=== PATIENT | female | born 1965 | race Caucasian/White ===

== ENCOUNTER 2023-11-25 13:26 | Inpatient (IN) | payer OTHER ==
[2023-11-25 14:10] LABS: Absolute Basophils 0.2 K/uL (0-0.5); Absolute Eosinophils 0.2 K/uL (0-0.5); Absolute Lymphocytes (CBC) 2.6 K/uL (0.7-4.9); Absolute Monocytes 0.6 K/uL (0.1-1.3); Absolute Neutrophil 8.2 K/uL (1.8-8.0); Basophils % 1.4 % (0-1.3); Eosinophils % 1.9 % (0-4.4); Lymphocytes % 22.2 % (15.3-44.8); MCH 27.1 pg (27.0-35.0); MCHC 32.6 g/dL (32.0-36.0); MPV 9.3 fL (7.6-11.3); Monocytes % 5.1 % (3.3-12.3); Neutrophils % 69.4 % (41.7-73.7); Platelets 372 thou/uL (152-406); RBC Red Blood Cell Count 4.82 M/uL (3.86-4.86); Red Cell Distribution Width 17.2 % (12.1-15.2)
[2023-11-25 14:17] LABS: Specific Gravity 1.018 (1.005-1.030); Sqamous Epithelial <5 /HPF (None Seen); Urine Bacteria <20 /HPF (<20); Urine Bilirubin NEGATIVE (Negative); Urine Blood Negative (Negative); Urine Clarity Extremely Turbid (Clear); Urine Color Yellow (Yellow); Urine Culture Reflex Order NOT NEEDED; Urine Glucose NEGATIVE (Negative); Urine Ketones NEGATIVE (Negative); Urine Microscopic Reflex YN ORDER UMIC; Urine Mucus 2+ /HPF (None Seen); Urine Nitrite NEGATIVE (Negative); Urine Protein 1+ (Negative); Urine RBC <5 /HPF (None Seen); Urine Urobilinogen Normal (Normal); Urine WBC <5 /HPF (<5); Urine pH 5.5 (5.0-7.0)
[2023-11-25 14:29] LABS: ALT/SGPT 20 U/L (13-56); AST/SGOT 40 U/L (15-37); Albumin 2.7 g/dL (3.4-5.0); Albumin/Globulin Ratio 0.4 (1.1-1.8); Alkaline Phosphatase 212 U/L (45-117); Anion Gap 11.6 mEq/L (5.0-15.0); BUN Blood Urea Nitrogen 9 mg/dL (7-18); Bicarbonate 26 mEq/L (21-32); Bilirubin Direct 0.3 mg/dL (0-0.2); Bilirubin Indirect, Calculated 0.7 mg/dL (0.2-0.8); Globulin 6.1 g/dL (2.3-3.5); Glomerular Filtration Rate 46 ml/min (=/>90); Glucose Level 126 mg/dL (74-106); Potassium 3.6 mEq/L (3.5-5.1); Protein, Total 8.8 g/dL (6.4-8.2); Sodium Level 137 mEq/L (136-145)
[2023-11-25 14:31] LABS: Troponin High Sensitivity < 3.0 pg/mL (<58.9)
[2023-11-25 14:40] LABS: PT Prothrombin Time 12.7 SECONDS (9.4-12.5); PTT, Activated Partial Thromb 36.8 SECONDS (24.3-36.9); Protime INR 1.14
--- NOTE | 2023-11-25 14:43 | RAD REPORT ---
EXAM DESCRIPTION: RAD - Chest Single View - 11/25/2023 2:35 pm CLINICAL HISTORY: DYSPNEA Chest pain. COMPARISON: <Comparisons> FINDINGS: Portable technique limits examination quality. Mild to moderate left lung base compatible with pneumonia. Small to moderate left pleural effusion. T he right lung appears grossly clear. The heart is normal in size. No displaced fractures.
--- NOTE | 2023-11-25 15:56 | EDPHYS ---
Physician Documentation [facility] Name: Oxana Talavera Age: 58 yrs Sex: Female : 1965 Arrival Date: 11/25/2023 Time: 13:26 Bed 13 Private MD: ED Physician Eric Herring HPI: 11/24 15:56 This 58 yrs old Female presents to ER via Ambulatory with complaints of Weakness. kb 15:56 Pt is a 58 year old female who presents for weakness, fatigue, intermittent cough and kb shortness of breath. States symptoms started 3 weeks ago, she was diagnosed with pneumonia at and given 10 days of antibiotics. States she felt better while on the antibiotics, but after completing the course the symptoms returned and have been getting progressively worse. Denies fever. . Historical: - Allergies: 13:44 Flagyl; ph - PMHx: 13:44 Bipolar disorder; CVA; Fibromyalgia; Crohn's disease; Hypothyroidism; GERD; ph - Immunization history:: Adult Immunizations unknown. - Infectious Disease History:: Denies. - Social history:: Smoking status: unknown. ROS: 15:56 Constitutional: As per HPI kb Exam: 14:30 Constitutional: This is a well developed, well nourished patient who is awake, alert, kb and in no acute distress. Head/Face: Normocephalic, atraumatic. ENT: Moist Mucous membranes Cardiovascular: Regular rate Respiratory: Respirations even and unlabored. No increased work of breathing. Talking in full sentences Abdomen/GI: Soft, non-tender. No distention Skin: Warm, dry with normal turgor. Normal color. MS/ Extremity: Pulses equal, no cyanosis. Neurovascular intact. Full, normal range of motion. Neuro: Awake and alert, GCS 15, oriented to person, place, time, and situation. Moves all extremities. Normal gait. 14:30 ECG was reviewed by the Attending Physician. Vital Signs: 13:41 BP 131 / 72; Pulse 98; Resp 18; Pulse Ox 95% on R/A; ph 14:21 BP 119 / 69 Sitting; Pulse 97; Resp 16; Pulse Ox 93% on R/A; bc6 14:22 BP 122 / 75 Supine; Pulse 96; Resp 16; Pulse Ox 92% on R/A; bc6 14:23 BP 111 / 81 Standing; Pulse 110; Resp 17; Pulse Ox 94% on R/A; bc6 15:42 Temp 97.9(O); ph 16:40 BP 115 / 81; Pulse 89; Resp 20; Temp 98; Pulse Ox 92% on R/A; kj2 17:43 BP 120 / 72; Pulse 85; Resp 20; Temp 98; Pulse Ox 100% on R/A; kj2 18:45 BP 109 / 81; Pulse 87; Resp 20; Pulse Ox 95% on R/A; cm10 [place] Coma Score: 19:15 Eye Response: spontaneous(4). Motor Response: obeys commands(6). Verbal Response: rg5 oriented(5). Total: 15. MDM: 13:41 Patient medically screened. kb 15:56 Data reviewed: vital signs, nurses notes. kb 15:58 Differential diagnosis: Bronchitis Chronic Obstructive Pulmonary Disease pneumonia, kb pulmonary edema. Antibiotic administration: Rocephin and Zithromax given. Consideration of Admission/Observation Patient was admitted/placed on observation. Escalation of care including admission/observation considered. Management of patient was discussed with the following: Hospitalist: Hospitalist team, pt accepted for admission under Dr Garcia. Historians other than the Patient: Spouse/Significant Other: . Counseling: I had a detailed discussion with the patient and/or guardian regarding the historical points, exam findings, and any diagnostic results supporting the discharge/admit diagnosis, lab results, radiology results, the need for further work-up and treatment in the hospital. 11/24 13:46 Order name: Basic Metabolic Panel; Complete Time: 14:31 kb 11/24 13:46 Order name: CBC with Diff; Complete Time: 14:34 kb 11/24 13:46 Order name: Hepatic Function; Complete Time: 14:31 kb 11/24 13:46 Order name: Magnesium; Complete Time: 14:31 kb 11/24 13:46 Order name: Protime (+inr); Complete Time: 14:46 kb 11/24 13:46 Order name: Ptt, Activated; Complete Time: 14:46 kb 11/24 13:46 Order name: Troponin High Sensitivity; Complete Time: 14:31 kb 11/24 13:46 Order name: Urinalysis w/ reflexes; Complete Time: 14:20 kb 11/24 14:50 Order name: Blood Culture Adult (2) kb 11/24 14:50 Order name: Lactate w/ 2H reflex if indic.; Complete Time: 15:49 kb 11/24 16:49 Order name: Basic Metabolic Panel EDMS 11/24 16:49 Order name: Basic Metabolic Panel EDMS 11/24 16:49 Order name: Basic Metabolic Panel EDMS 11/24 16:49 Order name: Basic Metabolic Panel EDMS 11/24 16:49 Order name: Basic Metabolic Panel EDMS 11/24 16:49 Order name: Basic Metabolic Panel EDMS 11/24 16:49 Order name: CBC with Automated Diff EDMS 11/24 16:49 Order name: CBC with Automated Diff EDMS 11/24 16:49 Order name: CBC with Automated Diff EDMS 11/24 16:49 Order name: CBC with Automated Diff EDMS 11/24 16:49 Order name: CBC with Automated Diff EDMS 11/24 16:49 Order name: CBC with Automated Diff EDMS 11/24 16:49 Order name: Magnesium EDMS 11/24 16:49 Order name: Magnesium EDMS 11/24 16:49 Order name: Magnesium EDMS 11/24 16:49 Order name: Magnesium EDMS 11/24 16:49 Order name: Magnesium EDMS 11/24 16:49 Order name: Magnesium EDMS 11/24 16:49 Order name: Phosphorus EDMS 11/24 16:49 Order name: Phosphorus EDMS 11/24 16:49 Order name: Phosphorus EDMS 11/24 16:49 Order name: Phosphorus EDMS 11/24 16:49 Order name: Phosphorus EDMS 11/24 16:49 Order name: Phosphorus EDMS 11/24 17:49 Order name: Ghost Lactate-NO COLLECT Timer; Complete Time: 17:54 EDMS 11/24 19:24 Order name: Lactate Sepsis 2 HR Follow-up; Complete Time: 19:25 EDMS 11/24 13:46 Order name: Chest Single View XRAY; Complete Time: 14:46 kb 11/24 13:46 Order name: Cardiac monitoring; Complete Time: 17:43 kb 11/24 13:46 Order name: EKG - Nurse/Tech; Complete Time: 14:21 kb 11/24 13:46 Order name: IV Saline Lock; Complete Time: 14:01 kb 11/24 13:46 Order name: Labs collected and sent; Complete Time: 14:01 kb 11/24 13:46 Order name: NPO; Complete Time: 14:01 kb 11/24 13:46 Order name: O2 Per Protocol; Complete Time: 16:11 kb 11/24 13:46 Order name: O2 Sat Monitoring; Complete Time: 16:11 kb 11/24 13:46 Order name: Orthostatics; Complete Time: 14:21 kb 11/24 17:54 Order name: Misc. Order: please draw repeat lactate; Complete Time: 19:04 kb EC:30 Rate is 96 beats/min. Rhythm is regular. QRS [place] is Normal. SD interval is normal at kb 124 msec. QRS interval is normal at 74 msec. QT interval is normal at 457 msec. Administered Medications: 16:50 Drug: Rocephin - Rocephin (cefTRIAXone) IVPB 1 grams IVPB once over 30 mins; (mix in 50 kj2 mL NS) Route: IVPB; Infused Over: 30 mins; Site: right antecubital; 17:35 Follow up: Response: No adverse reaction; IV Status: Completed infusion; IV Intake: [id number] 17:11 Drug: NS 0.9% IV 1000 ml IV at 1000 ml once Route: IV; Rate: 1000 ml; Site: right kj2 antecubital; 18:11 Follow up: IV Status: Completed infusion; IV Intake: 1000ml cm10 17:42 Drug: Zithromax IVPB 500 mg IVPB once over 1 hrs; mix in 250 mL NS Route: IVPB; Infused kj2 Over: 1 hrs; Site: right antecubital; 18:42 Follow up: Response: No adverse reaction; IV Status: Completed infusion cm10 18:47 Follow up: IV Status: Completed infusion; IV Intake: 250ml cm10 Disposition Summary: 11/25/23 15:56 Hospitalization Ordered Notes: Hospitalization Status: Observation kb Provider: Raheem Garcia Condition: Stable kb Problem: new kb Symptoms: are unchanged kb Bed/Room Type: Standard Location: Telemetry/MedSurg (Inpatient)(11/25/23 22:48) rv1 Room Assignment: 401(11/26/23 03:44) vc1 Diagnosis - Pneumonia, unspecified organism - failed outpatient treatment kb - Weakness kb Forms: - Medication Reconciliation Form kb - SBAR form kb - Leadership Thank You Letter kb Addendum: 11/30/2023 16:07 I was immediately available for consultation during this patient's visit. I did not e c2 personally see the patient or discuss the patient with the ISIDORO. . Signatures: Dispatcher [employer] Ana Simpson, HIWOT LINDSAY-Naheed De León, RN RN Marilyn Denny RN RN Brenda Erazo RN RN vc1 Arianne Freitas RN RN kb3 Janiya Euceda 1 Eric Herring MD MD ec2 Catina Alvarez RN RN kj2 Tika Britton RN cm10 Corrections: (The following items were deleted from the chart) 11/24 19:22 15:56 Telemetry/MedSurg (observation) kb kb3 19:22 15:56 kb kb3 22:48 19:22 [facility] ER HOLD kb3 rv1 22:48 19:22 ERHOLD- kb3 rv1 23:00 22:48 415 rv1 11/25 03:44 11/24 23:00 vc1
--- NOTE | 2023-11-25 15:56 | ER ---
Nurse's Notes [facility] Name: Oxana Talavera Age: 58 yrs Sex: Female : 1965 Arrival Date: 11/25/2023 Time: 13:26 Bed 13 Private MD: Diagnosis: Pneumonia, unspecified organism-failed outpatient treatment;Weakness Presentation: 11/24 13:40 Chief complaint: Patient states: Recently dx w/ pneumonia, placed on oral antibiotics, ph felt better for a few days and is now having weakness, fatigue and SOB. Coronavirus screen:. Ebola Screen: No symptoms or risks identified at this time. 13:40 Method Of Arrival: Ambulatory ph 13:41 Initial Sepsis Screen: Does the patient meet any 2 criteria? No. Patient's initial ph sepsis screen is negative. Does the patient have a suspected source of infection? No. Patient's initial sepsis screen is negative. Risk Assessment: Do you want to hurt yourself or someone else? Patient reports no desire to harm self or others. Onset of symptoms was November 25, 2023. 13:41 Acuity: GALINA 3 ph Historical: - Allergies: 13:44 Flagyl; ph - PMHx: 13:44 Bipolar disorder; CVA; Fibromyalgia; Crohn's disease; Hypothyroidism; GERD; ph - Immunization history:: Adult Immunizations unknown. - Infectious Disease History:: Denies. - Social history:: Smoking status: unknown. Screenin:12 [facility] ED Fall Risk Assessment (Adult) History of falling in the last 3 months, kj2 including since admission No falls in past 3 months (0 pts) Confusion or Disorientation No (0 pts) Intoxicated or Sedated No (0 pts) Impaired Gait No (0 pts) Mobility Assist Device Used Altered Elimination No (0 pt) Score/Fall Risk Level 0 - 2 = Low Risk. Abuse screen: Denies threats or abuse. Denies injuries from another. Nutritional screening: No deficits noted. Tuberculosis screening: No symptoms or risk factors identified. Assessment: 17:09 General: Appears in no apparent distress. Behavior is calm, cooperative. Pain: Denies kj2 pain. Neuro: Level of Consciousness is awake, alert, obeys commands, Oriented to person, place, time, situation. Cardiovascular: Patient's skin is warm and dry. Respiratory: Airway is patent Respiratory effort is even, unlabored. GI: No deficits noted. : No deficits noted. 17:44 Reassessment: Patient appears in no apparent distress at this time. Patient and/or kj2 family updated on plan of care and expected duration. Pain level reassessed. Patient is alert, oriented x 3, equal unlabored respirations, skin warm/dry/pink. 19:15 Reassessment: Patient and/or family updated on plan of care and expected duration. Pain rg5 level reassessed. Patient is alert, oriented x 3, equal unlabored respirations, skin warm/dry/pink. Patient states feeling better. Patient states symptoms have improved. Vital Signs: 13:41 BP 131 / 72; Pulse 98; Resp 18; Pulse Ox 95% on R/A; ph 14:21 BP 119 / 69 Sitting; Pulse 97; Resp 16; Pulse Ox 93% on R/A; bc6 14:22 BP 122 / 75 Supine; Pulse 96; Resp 16; Pulse Ox 92% on R/A; bc6 14:23 BP 111 / 81 Standing; Pulse 110; Resp 17; Pulse Ox 94% on R/A; bc6 15:42 Temp 97.9(O); ph 16:40 BP 115 / 81; Pulse 89; Resp 20; Temp 98; Pulse Ox 92% on R/A; kj2 17:43 BP 120 / 72; Pulse 85; Resp 20; Temp 98; Pulse Ox 100% on R/A; kj2 18:45 BP 109 / 81; Pulse 87; Resp 20; Pulse Ox 95% on R/A; cm10 [place] Coma Score: 19:15 Eye Response: spontaneous(4). Motor Response: obeys commands(6). Verbal Response: rg5 oriented(5). Total: 15. ED Course: 13:37 Patient arrived in ED. mg5 13:41 [facility] kb 13:41 Eric Herring MD is Attending Physician. kb 13:43 Triage completed. ph 13:45 Arm band placed on Patient placed in waiting room, Patient notified of wait time. ph 14:01 Basic Metabolic Panel Sent. bc6 14:01 CBC with Diff Sent. bc6 14:01 Hepatic Function Sent. bc6 14:01 Magnesium Sent. bc6 14:01 Protime (+inr) Sent. bc6 14:01 Ptt, Activated Sent. bc6 14:01 Troponin High Sensitivity Sent. bc6 14:01 Urinalysis w/ reflexes Sent. bc6 14:01 Initial lab(s) drawn, by me, sent to lab. Inserted saline lock: 22 gauge in right bc6 antecubital area, using aseptic technique. Blood collected. Flushed with 10 mL NS. 14:37 Chest Single View XRAY In Process Unspecified. EDMS 15:15 First set of blood cultures drawn by me. 6 15:19 Blood Culture Adult (2) Sent. bc6 15:19 Lactate w/ 2H reflex if indic. Sent. bc6 15:30 Second set of blood cultures drawn. bc6 15:55 Raheem Garcia is Hospitalizing Provider. kb 16:24 Catina Alvarez, DINAH is Primary Nurse. kj2 17:00 1636 Provider Cruzito Priest NP at bedside discussing plan of care. 1652 Primary Nurse ane at the bedside administering medication. 1700 CM met with patient and Will at the bedside in the ED exam room. Patient identified by name and . Demographic sheet confirmed and changes sent to appropriate personnel. states she lives in a single story home with her Will. Patient states prior to admission, she performs ADLs independently and uses a walker if she is going to be doing a lot of walking for long distances. Other DME in the home includes a shower stool. No HH, home oxygen or other medical services at this time. No MPOA in place at this time. 's preferred discharge plan is to return home. Will states he will transport her home when she is released. CM team will continue to follow and coordinate care. 17:14 Patient has correct armband on for positive identification. Bed in low position. Call kj2 light in reach. Adult w/ patient. Provided Education on: call light, fall precautions. 19:11 Report given to DINAH Francisco. cm10 19:15 Resting quietly. Awaiting bed assignment. rg5 19:15 Client placed on continuous cardiac and pulse oximetry monitoring. NIBP monitoring rg5 applied. finance effectiveness manager on. Pulse ox on. 19:15 Patient admitted, IV remains in place. No redness/swelling at site. rg5 19:44 No provider procedures requiring assistance completed. Patient admitted, IV remains in cm10 place. Administered Medications: 16:50 Drug: Rocephin - Rocephin (cefTRIAXone) IVPB 1 grams IVPB once over 30 mins; (mix in 50 kj2 mL NS) Route: IVPB; Infused Over: 30 mins; Site: right antecubital; 17:35 Follow up: Response: No adverse reaction; IV Status: Completed infusion; IV Intake: 47alcz1 17:11 Drug: NS 0.9% IV 1000 ml IV at 1000 ml once Route: IV; Rate: 1000 ml; Site: right kj2 antecubital; 18:11 Follow up: IV Status: Completed infusion; IV Intake: 1000ml cm10 17:42 Drug: Zithromax IVPB 500 mg IVPB once over 1 hrs; mix in 250 mL NS Route: IVPB; Infused kj2 Over: 1 hrs; Site: right antecubital; 18:42 Follow up: Response: No adverse reaction; IV Status: Completed infusion cm10 18:47 Follow up: IV Status: Completed infusion; IV Intake: 250ml cm10 Medication: 17:13 VIS not applicable for this client. kj2 Intake: 17:35 IV: 50ml; Total: 50ml. kj2 18:11 IV: 1000ml; Total: 1050ml. cm10 18:47 IV: 250ml; Total: 1300ml. cm10 Outcome: 15:56 Decision to Hospitalize by Provider. kb 19:43 Admitted to ER Hold. Please see [facility] for further documentation. cm10 19:43 Condition: stable 19:43 Instructed on the need for admit, 11/25 04:59 Patient left the ED. rg5 Signatures: Dispatcher [employer] EDAna Weldon, CNC LATHE MACHINE OPERATOR-Mitch CNC LATHE MACHINE OPERATOR-Marilyn Andrade RN RN Carmela Flor 6 Tika Britton RN RN cm10 Rebecca Mejia mg5 Nolan Sanford RN RN rg5 Catina Alvarez RN RN kj2 Tahira Le RN RN ane
[2023-11-25] MEDS ORDERED: CEFTRIAXONE 1000 MG/VIAL ONE (16:31)
[2023-11-25] MEDS ORDERED: NA CHLORIDE 0.9% 50 ML ONE (16:32)
[2023-11-25] MEDS ORDERED: AZITHROMYCIN 500 MG INJ IVPB ONE (16:32)
[2023-11-25] MEDS ORDERED: NA CHLORIDE 0.9% 250 ML ONE (16:32)
[2023-11-25] MEDS ORDERED: NA CHLORIDE 0.9% 1,000 ML ONE ×2 (16:33→18:59)
[2023-11-25] MEDS ORDERED: ACETAMINOPHEN 500 MG TAB PO PRN (16:43)
[2023-11-25] MEDS ORDERED: ACETAMINOPHEN 325 MG TABLET PO PRN (16:43)
[2023-11-25] MEDS ORDERED: HEPARIN 5000 UNIT/ML 1 ML VIAL ONE (18:59)
[2023-11-25] MEDS ORDERED: Levofloxacin 750mg IV 750 MG/150 ML BAG IV ONE (19:00)
[2023-11-25] MEDS: HEPARIN 5000 UNIT/ML 1 ML VIAL SQ SCH (19:06)
[2023-11-25] MEDS: NA CHLORIDE 0.9% 1,000 ML IV SCH (19:06)
[2023-11-25] MEDS: Levofloxacin 750mg IV 750 MG/150 ML BAG IV ONE (19:06)
[2023-11-25 20:06] VITALS: O2SAT 97; BMI 39.2
--- NOTE | 2023-11-25 20:57 | P.HP ---
Certification for Inpatient Patient admitted to: Inpatient With expected LOS: >2 Midnights Patient will require the following post-hospital care: None Practitioner: I am a practitioner with admitting privileges, knowledge of patient current condition, hospital course, and medical plan of care. Services: Services provided to patient in accordance with Admission requirements found in Title 42 Section 412.3 of the Code of Federal Regulations Patient History Date of Service: 11/25/23 Reason for admission: PNA failed outpatient treatment History of Present Illness: Oxana Talavera is a 58 year old female with Pmhx Bipolar disorder, CVA, Fibromyalgia, Crohn's disease, Hypothyroidism, GERD, who presents to the ED with chief complaint of weakness, SOB, and nausea. She reports taking antibiotics for PNA outpatient with her last dose a week ago. She has had increased weakness and her brought her to the ED. She reports no fever and no urinary symptoms. Initial vitals BP 131 / 72; Pulse 98; Resp 18; Pulse Ox 95% on R/A Laboratory evaluation WBC 11.8, lactic acidosis 2.2, BUN/creatinine 9/1.33, GFR 46, serum glucose 126 Chest xray reports "Mild to moderate left lung base compatible with pneumonia. Small to moderate left pleural effusion. The right lung appears grossly clear. The heart is normal in size. No displaced fractures." Oxana will be admitted to hospitalist service for further evaluation and treatment. Allergies metronidazole [From Flagyl] Allergy (Verified 11/25/23 18:55) Anaphylaxis Home Medications: Aspirin [Aspirin EC 325 MG] 11/25/23 Atorvastatin Calcium [Lipitor] 11/25/23 Cyanocobalamin (Vitamin B-12) [Vitamin B-12] 11/25/23 Duloxetine [Cymbalta *] 60 mg FT 11/25/23 Gabapentin 500 mg PO 11/25/23 Krill/Burney-3/Dha/Epa/Lipids [Burney-3 Krill Oil 500 mg Sfgl] 11/25/23 Levothyroxine [Synthroid*] 11/25/23 Omeprazole [Prilosec] 11/25/23 Zinc Amino Acid Chelate [Zinc] 11/25/23 clonazePAM [Clonazepam] PRN 11/25/23 Cefuroxime [Ceftin] 500 mg PO BID 5 Days #20 tab 11/26/23 Guaifenesin [Mucinex] 600 mg PO Q12H PRN 7 Days #14 tab 11/26/23 Levofloxacin [Levaquin] 750 mg PO DAILY 5 Days #5 tab 11/26/23 - Past Medical/Surgical History Has patient received pneumonia vaccine in the past: No Review of Systems General: Weakness Respiratory: Shortness of Breath Physical Examination - Physical Exam General: Alert, In no apparent distress, Oriented x3 HEENT: Atraumatic, Normocephalic Neck: Supple, 2+ carotid pulse no bruit Respiratory: Clear to auscultation bilaterally, Normal air movement Cardiovascular: Normal pulses, Regular rate/rhythm, Normal S1 S2 Capillary refill: <2 Seconds Gastrointestinal: Normal bowel sounds, Soft and benign, No tenderness, Distended (obese) Musculoskeletal: No clubbing Integumentary: No rashes Neurological: Normal speech, Normal tone - Studies Laboratory Data (last 24 hrs) 11/25/23 11/25/23 11/25/23 14:00 14:00 14:00 WBC 11.80 H Hgb 13.0 Hct 40.0 Plt Count 372 PT 12.7 H INR 1.14 APTT 36.8 Sodium 137 Potassium 3.6 BUN 9 Creatinine 1.33 H Glucose 126 H Magnesium 2.0 Total Bilirubin 1.0 AST 40 H ALT 20 Alkaline Phosphatase 212 H Assessment and Plan - Plan Assessment and Plan PNA failed outpatient treatment Weakness -WBC 11.8, Lactic acid 2.2 -Chest xray reports "Mild to moderate left lung base compatible with pneumonia. Small to moderate left pleural effusion. The right lung appears grossly clear. The heart is normal in size. No displaced fractures." -Zithromycin given in the ED -Levaquin on the floor -IVF CAIO -BUN/creatinine 9/1.33, GFR 46 - IVF Hyperglycemia likely 2/2 steroid use -serum glucose 126 -no reported diabetes in her history Bipolar disorder CVA Fibromyalgia Crohn's disease Hypothyroidism GERD -Continue home medications DVT PPx heparin Full code LOS 2 to 3 days Discharge Plan: Home Plan to discharge in: 48 Hours - Advance Directives Does patient have a Living Will: No Does patient have a Durable POA for Healthcare: No
[2023-11-26] MEDS ORDERED: HEPARIN 5000 UNIT/ML 1 ML VIAL ONE (03:38)
[2023-11-26] MEDS ORDERED: NA CHLORIDE 0.9% 1,000 ML ONE (04:25)
[2023-11-26 05:53] LABS: Absolute Basophils 0.1 K/uL (0-0.5); Absolute Eosinophils 0.3 K/uL (0-0.5); Absolute Lymphocytes (CBC) 1.5 K/uL (0.7-4.9); Absolute Monocytes 0.5 K/uL (0.1-1.3); Absolute Neutrophil 4.4 K/uL (1.8-8.0); Eosinophils % 4.5 % (0-4.4); Hematocrit 34.6 % (36.0-45.0); Lymphocytes % 22.5 % (15.3-44.8); MCH 26.8 pg (27.0-35.0); MCV 83.8 fL (80-100); MPV 9.9 fL (7.6-11.3); Monocytes % 7.7 % (3.3-12.3); Neutrophils % 64.3 % (41.7-73.7); Platelets 266 thou/uL (152-406); RBC Red Blood Cell Count 4.12 M/uL (3.86-4.86); Red Cell Distribution Width 16.6 % (12.1-15.2)
[2023-11-26 06:04] LABS: Anion Gap 7.6 mEq/L (5.0-15.0); Magnesium 1.7 mg/dL (1.6-2.4); Potassium 3.6 mEq/L (3.5-5.1)
[2023-11-26 08:29] VITALS: BP 106/57; TEMP 96.3
--- NOTE | 2023-11-26 08:34 | P.DS ---
Admission Date: 11/25/23 Discharge Date: 11/26/23 Disposition: ROUTINE DISCHARGE Discharge Condition: GOOD Reason for Admission: PNA failed outpatient treatment Brief History of Present Illness: Diagnosis PNA failed outpatient treatment Lactic acidosis Weakness CAIO Hyperglycemia likely 2/2 steroid use Bipolar disorder CVA Fibromyalgia Crohn's disease Hypothyroidism GERD HPI 11/25/2023 Oxana Talavera is a 58 year old female with Pmhx Bipolar disorder, CVA, Fibromyalgia, Crohn's disease, Hypothyroidism, GERD, who presents to the ED with chief complaint of weakness, SOB, and nausea. She reports taking antibiotics for PNA outpatient with her last dose a week ago. She has had increased weakness and her brought her to the ED. She reports no fever and no urinary symptoms. Initial vitals BP 131 / 72; Pulse 98; Resp 18; Pulse Ox 95% on R/A Laboratory evaluation WBC 11.8, lactic acidosis 2.2, BUN/creatinine 9/1.33, GFR 46, serum glucose 126 Chest xray reports "Mild to moderate left lung base compatible with pneumonia. Small to moderate left pleural effusion. The right lung appears grossly clear. The heart is normal in size. No displaced fractures." Oxana will be admitted to hospitalist service for further evaluation and treatment. Hospital Course: Oxana Talavera is a pleasant 58 year old female with a past medical history significant for Bipolar disorder, CVA, Fibromyalgia, Crohn's disease, Hypothyroidism, GERD who was admitted to the [facility] on 11/24/21 for Weakness d/t PNA failed outpatient antibiotic therapy. She reports taking antibiotics for PNA outpatient with her last dose a week ago. She has had increased weakness and her brought her to the ED. She reports no fever and no urinary symptoms. She has tolerated IV levaquin, remained afebrile, and is on RA. She reports snoring and possible sleep apnea, intermittent oxygen was used but ambulating oxygen saturation was tested showing 93-95%. Weakness improved and she was strong while ambulating. On 11/26/23, Oxana was seen on morning rounds and deemed medically stable for discharge. Oxana was discharged with instructions to schedule follow-up appointments with PCP. Oxana was provided prescriptions for Levaquin, ceftin, and mucinex. Physical Exam General: Alert and Oriented x3, NAD HEENT: Atraumatic, Normocephalic Neck: Supple, 2+ carotid pulse no bruit Respiratory: Clear to auscultation bilaterally, Normal air movement, on RA Cardiovascular: Normal pulses, RRR, Normal S1 S2 Capillary refill: <2 Seconds Gastrointestinal: Normal bowel sounds, Soft on palpation, No tenderness, Distended (obese) Musculoskeletal: No clubbing Integumentary: No rashes Neurological: Normal speech, Normal tone Vital Signs/Physical Exam: Temp Pulse Resp BP Pulse Ox 96.3 F L 86 16 106/57 L 94 11/26/23 08:00 11/26/23 08:00 11/26/23 08:00 11/26/23 08:00 11/26/23 08:00 Laboratory Data at Discharge: WBC 6.80 thou/uL (4.3-10.9) 11/26/23 05:41 Hgb 11.0 g/dL (12.0-15.0) L D 11/26/23 05:41 Hct 34.6 % (36.0-45.0) L 11/26/23 05:41 Plt Count 266 thou/uL (152-406) D 11/26/23 05:41 PT 12.7 SECONDS (9.4-12.5) H 11/25/23 14:00 INR 1.14 11/25/23 14:00 APTT 36.8 SECONDS (24.3-36.9) 11/25/23 14:00 Sodium 140 mEq/L (136-145) 11/26/23 05:41 Potassium 3.6 mEq/L (3.5-5.1) 11/26/23 05:41 BUN 8 mg/dL (7-18) 11/26/23 05:41 Creatinine 0.87 mg/dL (0.55-1.02) 11/26/23 05:41 Glucose 98 mg/dL (74-106) 11/26/23 05:41 Phosphorus 3.0 mg/dL (2.5-4.9) 11/26/23 05:41 Magnesium 1.7 mg/dL (1.6-2.4) 11/26/23 05:41 Total Bilirubin 1.0 mg/dL (0.2-1.0) 11/25/23 14:00 AST 40 U/L (15-37) H 11/25/23 14:00 ALT 20 U/L (13-56) 11/25/23 14:00 Alkaline Phosphatase 212 U/L (45-117) H 11/25/23 14:00 Home Medications: Aspirin [Aspirin EC 325 MG] 11/25/23 Atorvastatin Calcium [Lipitor] 11/25/23 Cyanocobalamin (Vitamin B-12) [Vitamin B-12] 11/25/23 Duloxetine [Cymbalta *] 60 mg FT 11/25/23 Gabapentin 500 mg PO 11/25/23 Krill/Naples-3/Dha/Epa/Lipids [Naples-3 Krill Oil 500 mg Sfgl] 11/25/23 Levothyroxine [Synthroid*] 11/25/23 Omeprazole [Prilosec] 11/25/23 Zinc Amino Acid Chelate [Zinc] 11/25/23 clonazePAM [Clonazepam] PRN 11/25/23 Cefuroxime [Ceftin] 500 mg PO BID 5 Days #20 tab 11/26/23 Guaifenesin [Mucinex] 600 mg PO Q12H PRN 7 Days #14 tab 11/26/23 Levofloxacin [Levaquin] 750 mg PO DAILY 5 Days #5 tab 11/26/23 New Medications: Cefuroxime [Ceftin] 500 mg PO BID 5 Days #20 tab Levofloxacin [Levaquin] 750 mg PO DAILY 5 Days #5 tab Guaifenesin [Mucinex] 600 mg PO Q12H PRN 7 Days #14 tab PRN Reason: Cough Physician Discharge Instructions: Darius Talavera was treated for pneumonia after failed outpatient antibiotic treatment. Levaquin was given IV and tolerated well. Continue antibiotic course with dual coverage of Levaquin and Ceftin. Please follow-up with your primary care provider in 1 week. 1. Please call and schedule a follow-up appointment with your PCP in one week - Please follow-up with your PCP for medication refills/adjustments 3. Continue regluar diet 4. No activity restrictions 5. Return to the ED if symptoms worsen New medications Levaquin 750 mg p.o. daily x 5 days Ceftin 500 mg p.o. twice daily x 5 days Mucinex 600 mg p.o. every 12 hours time as needed x 7 days Diet: Regular Activity: Ad thania Followup: NONE,NONE [Primary Care Provider] -
[2023-11-26] MEDS ORDERED: Levofloxacin 750mg IV 750 MG/150 ML BAG IV SCH (19:00)
--- NOTE | 2023-11-27 13:35 | EKG ---
Test Date: 2023-11-25 Test Time: 14:10:27 Sales Producer: DIRK MEASUREMENT RESULTS: Intervals: Rate: 96 PA: 124 QRSD: 74 QT: 362 QTc: 457 [place]: P: 22 PA: 124 QRS: 29 T: -70 INTERPRETIVE STATEMENTS: Normal sinus rhythm Low voltage QRS Nonspecific ST and T wave abnormality Abnormal ECG No previous ECG available for comparison Electronically Signed On 11-27-23 13:29:13 CDT by Jaxson Hoover
== END 2023-11-26 10:39 | disposition home or self-care (01) | DRG 194 ==
LOC: ER 13:26 → ERHOLD 18:24 → 4TH 11-26 04:42
PROVIDERS: ADMIT Internal Medicine; ATTEND Internal Medicine
DX: J18.9 Pneumonia, unspecified organism (principal); E87.20 Acidosis, unspecified; N17.9 Acute kidney failure, unspecified; K50.90 Crohn's disease, unspecified, without complications; M79.7 Fibromyalgia; E03.9 Hypothyroidism, unspecified; K21.9 Gastro-esophageal reflux disease without esophagitis; E66.9 Obesity, unspecified; F31.9 Bipolar disorder, unspecified; T38.0X5A Adverse effect of glucocorticoids and synthetic analogues, initial encounter; R73.9 Hyperglycemia, unspecified; Z88.8 Allergy status to other drugs, medicaments and biological substances; Z79.82 Long term (current) use of aspirin; Z68.39 Body mass index [BMI] 39.0-39.9, adult; Z86.73 Personal history of transient ischemic attack (TIA), and cerebral infarction without residual deficits; Z79.890 Hormone replacement therapy; Z79.899 Other long term (current) drug therapy
CPT/HCPCS: 36415; 71045; 80048; 80076; 81001; 83605; 83735; 84100; 84484; 85025; 85610; 85730; 87040; 93005; 96365; 96367; 99285; J0696; J1644; J7030; J7050

== ENCOUNTER 2023-11-29 09:01 | Inpatient (IN) | payer OTHER ==
--- OUTSIDE RECORDS SUMMARY | 2023-11-29 09:04 | XMS REPORT | Continuity of Care Document ---
Author Name Unknown Address [address] [place] [address] [facility] thconnect Address [address] [place] [address] Care Team Providers Care Financial Compliance Manager Name Role Phone JUNO ROSE Primary Care Physician UnavailJAQUAN Howard Attending Clinician UnavailJaquan Mancini Attending Clinician [phone] Unknown, Attending Attending Clinician Unavailab [facility] Attending Clinician Un available Homar Mccarthy Attending Clinician [phone] HOMAR VARGHESE Attending Clinician Unavailable Provider[facility] Attending Clinician Unavailable UNKNOWN, ATTENDING Attending Clinician Unavailab chanel WHITNEY_GCBZW_Kadiyala_S Attending Clinician Paul An Attending Clinician [phone] Doctor Unassigned, [place] Attending Clinician U navailable DEVONTE_GCBZW_Kadiyala_S Admitting Clinician Unavaila ble Payers Payer Name Policy Type Policy Number Effective Date Expirati on Date Source [employer] MEDICARE ADV [id number] 00:00:00 Problems Condition Name Condition Details Condition Category Status Onset Date Resolution Date Last Treatment Date Treating Clinician Comments Source Vaginal odor Vaginal odor Disease Active 2017-04 00:00: 00 [facility] Vaginal itching Vaginal itching Disease Active 2017-04 00:00: 00 [facility] Allergies, Adverse Reactions, Alerts Allergy Name Allergy Type Status Severity Reaction(s) Onset Date Inactive Date Treating Clinician Comments Source Metronid azole Hcl Propensi ty to adverse reaction s Active Unknown - See comments 10-22 00:00: 00 [facility] METRONID AZOLE HCL DRUG INGREDI Active Unknown-Cmnt 10-22 00:00: 00 [facility] Social History Social Habit Start Date Stop Date Quantity Comments Source Sexual orientation U [facility] Exposure to SARS-CoV-2 (event) Not sure [facility] History of Social function 2018-12-26 00:00:00 2018-12-26 00:00:00 [facility] Tobacco use and exposure 2018-03-18 00:00:00 2018-03-18 00:00:00 Smokeless tobacco non-user [facility] Alcohol Comment 2018-03-18 00:00:00 2018-03-18 00:00:00 social [facility] History of tobacco use 2010-06-01 00:00:00 Cigarette Smoker [facility] Sex assigned at 1965 00:00:00 1965 00:00:00 [facility] Smoking Status Start Date Stop Date Source Ex-smoker 2018-03-18 00:00:00 2018-03-18 00:00:00 [facility] Medications Ordered Medication Name Filled Medication Name Start Date Stop Date Current Medication? Ordering Clinician Indication Dosage Frequency Signature (SIG) Comments Components Source potassium chloride (KCL-20 ORAL) 10-24 18:25: 25 Yes 2mg Take by mouth. [facility] aspirin 325 mg tablet 10-24 18:25: 25 Yes 325mg Take 1 tablet by mouth in the morning. [facility] Cholecalcif yusef, Vitamin D3, (VITAMIN D3) 5,000 unit tablet 10-24 18:25: 25 Yes 5000U Take 1 tablet by mouth in the morning. [facility] mesalamine (PENTASA) 500 mg CR capsule 10-24 18:25: 25 Yes 500mg Take 1 capsule by mouth 4 (four) times daily. [facility] DULoxetine (CYMBALTA) 60 mg capsule 10-24 18:25: 25 Yes 60mg Take 1 capsule by mouth in the morning. [facility] omega-3s-dh a-epa-fish oil (OMEGA 3) 350-400 mg Cap 10-24 18:25: 25 Yes 1{capsu le} Take 1 capsule by mouth daily. [facility] levothyroxi ne (SYNTHROID) 25 mcg tablet 10-24 18:25: 25 Yes 25ug Take 1 tablet by mouth every morning. [facility] omeprazole (PRILOSEC) 40 mg capsule 10-24 18:25: 25 Yes 40mg Take 1 capsule by mouth in the morning. [facility] methylPREDN ISolone (MEDROL, XIOMARA,) 4 mg tablets 10-24 00:00: 00 Yes [id number] Take by mouth SEE-INSTRU CTIONS. follow package directions [facility] azithromyci n 250 mg tablet 10-24 00:00: 00 Yes [id number] 2 tabs today; 1 tab daily for 4 days [facility] benzonatate 200 mg capsule 10-24 00:00: 00 11-04 04:59 :00 Yes [id number] 200mg Take 1 capsule by mouth 3 (three) times daily as needed for Cough for up to 10 days. [facility] albuterol 90 mcg/actuati on inhaler 10-24 00:00: 00 11-04 04:59 :00 Yes [id number] 2{puff} Inhale 2 Puffs every 6 (six) hours as needed for Wheezing or Shortness of Breath for up to 10 days. [facility] amoxicillin -clavulanat e (AUGMENTIN) 875-125 mg per tablet 10-24 00:00: 00 11-01 04:59 :00 Yes [id number] 1{tbl} Take 1 tablet by mouth in the morning and 1 tablet in the evening. Do all this for 7 days. [facility] iohexol (OMNIPAQUE 350 BULK-100 mL) injection 100 mL 2019-04 00:30: 00 02-24 00:00 :00 No 100mL 100 mL, Intravenou s, ONCE, 1 dose, Thu02/24/20 at 1830, Routine [facility] meclizine (TRAVEL-EAS E (MECLIZINE) ) tablet 25 mg 2019-04 00:00: 00 02-23 23:03 :00 No 25mg 25 mg, Oral, ONCE, 1 dose, Thu02/24/20 at 1800, JERARDO [facility] NaCl 0.9% (NS) bolus infusion 1,000 mL 2019-04 23:45: 00 02-24 01:50 :00 No 1000mL at 999 mL/hr, 1,000 mL, IV Infusion, ONCE, 1 dose, Thu02/24/20 at 1745, STAT [facility] benzonatate 100 mg capsule 708 00:00: 00 10-24 00:00 :00 No [id number] 100mg Take 1 capsule by mouth 3 (three) times daily as needed for Cough. [facility] erythromyci n 5 mg/gram (0.5 %) ophthalmic ointment 524 00:00: 00 Yes [id number] 650242 .5[in_u s] Place 0.5 Inches in both eyes 2 (two) times daily. Continue until you follow up with eye doctor. [facility] methylPREDN ISolone (MEDROL, XIOMARA,) 4 mg tablets 4-16 00:00: 00 10-24 00:00 :00 No [id number] Take by mouth SEE-INSTRU CTIONS. follow package directions [facility] ATORVASTATI N CALCIUM (LIPITOR ORAL) 2017-04 15:27: 38 Yes 40mg Take 40 mg by mouth daily. [facility] aspirin 325 mg tablet 2017-04 15:27: 38 Yes 325mg Take 325 mg by mouth daily. [facility] CLONAZEPAM ORAL 2017-04 15:27: 38 Yes 2mg Take 2 mg by mouth 2 (two) times daily as needed (anxiety). [facility] Cholecalcif yusef, Vitamin D3, (VITAMIN D3) 5,000 unit tablet 2017-04 15:27: 38 Yes 5000U Take 5,000 Units by mouth daily. [facility] mesalamine (PENTASA) 500 mg CR capsule 2017-04 15:27: 38 Yes 500mg Take 500 mg by mouth 4 (four) times daily. [facility] DULoxetine (CYMBALTA) 60 mg capsule 2017-04 15:27: 38 Yes 60mg Take 60 mg by mouth daily. [facility] omega-3s-dh a-epa-fish oil (OMEGA 3) 350-400 mg Cap 2017-04 15:27: 38 Yes 1{capsu le} Take 1 capsule by mouth daily. [facility] levothyroxi ne (SYNTHROID) 25 mcg tablet 2017-04 15:27: 38 Yes 25ug Take 25 mcg by mouth every morning. [facility] omeprazole (PRILOSEC) 40 mg capsule 2017-04 15:27: 38 Yes 40mg Take 40 mg by mouth daily. [facility] acetaminoph en with codeine (TYLENOL-CO DEINE #3 ORAL) 2017-04 15:27: 38 Yes Take by mouth. [facility] potassium chloride (KCL-20 ORAL) 2017-04 15:27: 38 Yes Take by mouth. [facility] potassium chloride (KCL-20 ORAL) 2017-04 09:27: 38 Yes 40mg Take by mouth. [facility] CLONAZEPAM ORAL 2017-04 09:27: 38 Yes 2mg Take 2 mg by mouth 2 (two) times daily as needed (anxiety). [facility] omega-3s-dh a-epa-fish oil (OMEGA 3) 350-400 mg Cap 2017-04 09:27: 38 Yes 1{capsu le} Take 1 capsule by mouth daily. [facility] clotrimazol e-betametha sone (LOTRISONE) cream 2017-04 00:00: 00 Yes Apply to area(s) 2 (two) times daily. [facility] clotrimazol e (GYNE-LOTRI MIN 7) 1 % vaginal cream 2017-04 2- 00:00: 00 Yes 1{appli cator} Insert 1 Applicator into vagina at bedtime. [facility] traMADOL (ULTRAM) 50 mg tablet 2015-04 0 00:00: 00 Yes 50mg Take 1 tablet by mouth every 6 (six) hours as needed for Pain (scale 7-10). [facility] Vital Signs Vital Name Observation Time Observation Value Comments S rand Systolic blood pressure 2023-10-25 23:20:00 114 mm[Hg] [facility] acute hospital Diastolic blood pressure 2023-10-25 23:20:00 74 mm[Hg] [facility] acute hospital Heart rate 2023-10-25 23:20:00 110 /min [facility] Body temperature 2023-10-25 23:20:00 36.22 Zee [facility] Body weight 2023-10-25 23:20:00 120.657 kg [facility] BMI 2023-10-25 23:20:00 39.28 kg/m2 [facility] Oxygen saturation in Arterial blood by Pulse oximetry 2023-10-25 23:20:00 95 /min [facility] Systolic blood pressure 2023-07-31 22:00:00 116 mm[Hg] [facility] acute hospital Diastolic blood pressure 2023-07-31 22:00:00 84 mm[Hg] [facility] acute hospital Heart rate 2023-07-31 22:00:00 87 /min [facility] Body temperature 2023-07-31 22:00:00 36.28 Zee [facility] Respiratory rate 2023-07-31 22:00:00 18 /min [facility] Body height 2023-07-31 22:00:00 175.3 cm [facility] Body weight 2023-07-31 22:00:00 121.791 kg [facility] BMI 2023-07-31 22:00:00 39.65 kg/m2 [facility] Oxygen saturation in Arterial blood by Pulse oximetry 2023-07-31 22:00:00 95 /min [facility] Systolic blood pressure 2023-07-31 21:25:00 116 mm[Hg] [facility] acute hospital Diastolic blood pressure 2023-07-31 21:25:00 84 mm[Hg] [facility] acute hospital Heart rate 2023-07-31 21:25:00 87 [facility] Body temperature 2023-07-31 21:25:00 36.28 Zee [facility] Respiratory rate 2023-07-31 21:25:00 18 /min [facility] Body height 2023-07-31 21:25:00 175.3 cm [facility] Body weight 2023-07-31 21:25:00 121.927 kg [facility] BMI 2023-07-31 21:25:00 39.69 kg/m2 [facility] Oxygen saturation in Arterial blood by Pulse oximetry 2023-07-31 21:25:00 95 /min [facility] Systolic blood pressure 2020-02-25 01:32:00 113 mm[Hg] [facility] acute hospital Diastolic blood pressure 2020-02-25 01:32:00 82 mm[Hg] [facility] acute hospital Heart rate 2020-02-25 01:32:00 84 /min [facility] Respiratory rate 2020-02-25 01:32:00 21 /min [facility] Oxygen saturation in Arterial blood by Pulse oximetry 2020-02-25 01:32:00 97 /min [facility] Body temperature 2020-02-24 22:18:23 37.06 Zee [facility] Body weight 2020-02-24 22:18:23 133.811 kg [facility] BMI 2020-02-24 22:18:23 43.56 kg/m2 [facility] Procedures Procedure Date / Time Performed Performing Clinician Source POCT SARS-COV-2 ANTIGEN (BINAX NOW) 2023-10-25 23:54:00 Jaquan Back [facility] XR CHEST 2 VW 2023-10-25 23:53:00 [facility] 2020-02-25 00:14:59 [facility] 2020-02-25 00:14:59 Paul Marcum [facility] URINALYSIS 2020-02-25 00:01:00 Pual Marcum [facility] XR CHEST 2 VW 2020-02-24 23:21:34 Paul Marcum [facility] CT HEAD WO CONTRAST 2020-02-24 23:16:00 Paul Marcum [facility] LIPASE 2020-02-24 23:01:00 Paul Marcum [facility] TROPONIN I 2020-02-24 23:01:00 Paul Marcum [facility] HEPATIC FUNCTION PANEL ([id number]) (ALB,T.PRO,BILI T,BU/BC,ALT,AST,ALK PHOS) 2020-02-24 23:01:00 Paul Marcum [facility] BASIC METABOLIC PANEL (NA, K, CL, CO2, GLUCOSE, BUN, CREATININE, CA) 2020-02-24 23:01:00 Paul Marcum [facility] CBC WITH DIFF 2020-02-24 23:01:00 Paul Marcum [facility] PROTHROMBIN TIME / INR 2020-02-24 23:01:00 Ly Marcum [facility] ACTIVATED PARTIAL THRMPLAS YOLETTE 2020-02-24 23:01:00 Paul Marcum [facility] NOTICE OF PRIVACY PRACTICES 2020-02-24 22:07:24 Doctor Unassigned, [place] [facility] CONSENT/REFUSAL FOR DIAGNOSIS AND TREATMENT 2020-02-24 22:07:10 Doctor Unassigned, [place] [facility] Encounters Start Date/Time End Date/Time Encounter Type Admission Type Attending [facility] Care Facility Care Department Encounter ID Source 2021-02-02 07:00:13 Emergency [facility] [id number] [facility] 2023-10-25 18:41:11 2023-10-25 23:59:00 Outpatient R COLE, JAQUAN [facility] [id number] [facility] 2023-10-25 18:41:11 2023-10-25 23:59:00 Hospital Encounter Jaquan Back [facility] [id number] [id number] [id number] [id number] [facility] 2023-10-25 18:20:00 2023-10-25 19:12:35 Urgent Care Jaquan Back Unknown, Attending [facility] 1..840.114 350.1.13.10 4.2.7.2.686 [id number] [facility] 2023-07-31 17:00:00 2023-07-31 17:07:46 Nurse Visit Nurse, [facility] Unknown, [facility] [id number] 350.1.13.10 [id number] [id number] [facility] 2023-07-31 17:00:00 2023-07-31 17:00:00 Outpatient R HOMAR VARGHESE [facility] [id number] [facility] 2023-07-31 16:00:00 2023-07-31 16:20:00 Urgent Care Provider, [facility] Unknown, Attending [facility] 1..840.114 350.1.13.10 4.2.7.2.686 [id number] [facility] 2023-07-31 16:00:00 2023-07-31 16:00:00 Outpatient R UNKNOWN, ATTENDING [facility] [id number] [facility] 2023-02-01 00:00:00 2023-02-01 00:00:00 Outpatient GC_GCBZW_Ka dioscara_S [facility] [id number] [facility] 2020-02-24 16:28:00 2020-02-24 19:52:00 Emergency Yordan Paul [facility] [id number] 350.1.13.10 [id number] [id number] [facility] 2020-02-24 00:00:00 2020-02-24 00:00:00 Orders Only Doctor Unassigned, [place] [facility] [id number] 350.1.13.10 [id number] [id number] [facility] Results Test Description Test Time Test Comments Results Resul t Comments Source XR CHEST 2 VW 2023-10-26 00:22:43 ORDERING PHYSICIAN: JAQUAN BACK. JAQUAN BACK CLINICAL HISTORY: Dyspnea. . TECHNIQUE: 2 views chest TECHNICAL QUALITY: Adequate COMPARISON: 02/24/2020 FINDINGS: Medial left lung base opacities concerning for pneumonia. Noeffusion or pneumothorax. Normal heart size[facility] [id number] 00:59:30No evidence for hemodynamically significant stenosis in the neck. No evidence for central intracranial arterial occlusion or hemodynamicallysignificant stenosis. RL: 4600 INATION: CT ANGIOGRAPHY OF THE HEAD AND NECK WITH CONTRAST. ORDERING PHYSICIAN: PAUL MARCUM CLINICAL INDICATION: ?Neuro deficit, TIA TECHNIQUE: Axial CT of the head and neck obtained after the administrationof intravenous contrast, according to angiographyprotocol. Sagittal andcoronal maximum intensity projection reformatted images provided.Evaluation for luminal stenosis measured utilizing NASCET criteria. CT scanwas performed according to ALARA (As Low as Reasonably Achievable). COMPARISON: Noncontrast CT head from earlier the same day FINDINGS: Visualized upper lungs are clear. Airway is patent. Paranasal sinuses andmastoid air cells are clear.Posterior nasopharynx and oropharynx areunremarkable. Submandibular and parotid glands are symmetrical. Orbits areunremarkable as visualized. No cervical lymphadenopathy. Thyroid isunremarkable. No acute bony abnormality. Conventional 3 vessel arch anatomy is identified. The bilateral commoncarotidarteries are patent and normal caliber. The carotid bulbs arewidely patent. External carotid arteries are patent. The bilateral cervicalinternal carotid arteries are patent without evidence for hemodynamicallysignificant stenosis. The bilateral cervical vertebral arteries are nearlycodominant and are patent and normal caliber along their course. The petrous and cavernous internal carotid arteriesare patent and normalcaliber. The central aspects of the middle cerebral, anterior cerebral andposterior cerebral arteries are patent without evidence for hemodynamicallysignificant stenosis. Basilarartery is patent normal caliber. Theintradural vertebral arteries are patent and normal caliber. originof the right posterior cerebral artery. There is a prominent venousstructure at the right middle cranial fossa, which could related to adevelopmental venous anomaly. No evidence for large int racranial aneurysm.Major dural venous sinuses are patent. [facility], Radiant Results Inft User - 02/24/2020 7:00 PM CSTEXAMINATION: CT ANGIOGRAPHY OF THE HEAD AND NECK WITH CONTRAST.ORDERING PHYSICIAN: PAUL LIZAMALINICAL INDICATION: Neuro deficit, TIATECHNIQUE: Axial CT of the head and neck obtained after the administrationof intravenous contrast, according to angiography protocol. Sagittal andcoronal maximum intensity projection reformatted images provided.Evaluation for luminal stenosis measured utilizing NASCET criteria. CT scanwas performed according to ALARA (As Low as Reasonably Achievable ).COMPARISON: Noncontrast CT head from earlier the same dayFINDINGS:Visualized upper lungs are clear. Airway is patent. Paranasal sinuses andmastoid air cells are clear. Posterior nasopharynx and oropharynx areunremarkable. Submandibular and parotid glands are symmetrical. Orbits areunremarkable asvisualized. No cervical lymphadenopathy. Thyroid isunremarkable. No acute bony abnormality.Conventional 3 vessel arch anatomy is identified. The bilateral commoncarotid arteries are patent and normalcaliber. The carotid bulbs arewidely patent. External carotid arteries are patent. The bilateral cervicalinternal carotid arteries are patent without evidence for hemodynamicallysignificant stenosis.The bilateral cervical vertebral arteries are nearlycodominant and are patent and normal caliber along their course.The petrous and cavernous internal carotid arteries are patent and normalcaliber. The central aspects of the middle cerebral, anterior cerebral andposterior cerebral arteries are patent without evidence for hemodynamicallysignificant stenosis. Basilar artery is patent normal caliber. Theintradural vertebral arteries are patent and normal caliber. originof the right posteriorcerebral artery. There is a prominent venousstructure at the right middle cranial fossa, which could related to adevelopmental venous anomaly. No evidence for large intracranial aneurysm.Major dural venous sinuses are patent.IMPRESSIONNo evidence for hemodynamically significant stenosis in the neck.No evidence for central intracranial arterial occlusion or hemodynamicallysignificant stenosis.RL: 4600 [facility] [id number] 00:59:30No evidence for hemodynamically significant stenosis in the neck. No evidence for central intracranial arterial occlusion or hemodynamicallysignificant stenosis. RL: 4600 INATION: CT ANGIOGRAPHY OF THE HEAD AND NECK WITH CONTRAST. ORDERING PHYSICIAN: PAUL MARCUM CLINICAL INDICATION: ?Neuro deficit, TIA TECHNIQUE: Axial CT of the head and neck obtained after the administrationof intravenous contrast, according to angiographyprotocol. Sagittal andcoronal maximum intensity projection reformatted images provided.Evaluation for luminal stenosis measured utilizing NASCET criteria. CT scanwas performed according to ALARA (As Low as Reasonably Achievable). COMPARISON: Noncontrast CT head from earlier the same day FINDINGS: Visualized upper lungs are clear. Airway is patent. Paranasal sinuses andmastoid air cells are clear.Posterior nasopharynx and oropharynx areunremarkable. Submandibular and parotid glands are symmetrical. Orbits areunremarkable as visualized. No cervical lymphadenopathy. Thyroid isunremarkable. No acute bony abnormality. Conventional 3 vessel arch anatomy is identified. The bilateral commoncarotid arteries are patent and normal caliber. The carotid bulbs arewidely patent. External carotid arteries are patent. The bilateral cervicalinternal carotid arteries are patent without evidence for hemodynamicallysignificant stenosis. The bilateral cervical vertebral arteries are nearlycodominant and are patent and normal caliber along their course. The petrous and cavernous internal carotid arteriesare patent and normalcaliber. The central aspects of the middle cerebral, anterior cerebral andposterior cerebral arteries are patent without evidence for hemodynamicallysignificant stenosis. Basilarartery is patent normal caliber. Theintradural vertebral arteries are patent and normal caliber. originof the right posterior cerebral artery. There is a prominent venousstructure at the right middle cranial fossa, which could related to adevelopmental venous anomaly. No evidence for large intracranial aneurysm.Major dural venous sinuses are patent. [facility], Radiant Results Inft User - 02/24/2020 7:00 PM CSTEXAMINATION: CT ANGIOGRAPHY OF THE HEAD AND NECK WITH CONTRAST.ORDERING PHYSICIAN: PAUL LIZAMALINICAL INDICATION: Neuro deficit, TIATECHNIQUE: Axial CT of the head and neck obtained after the administrationof intravenous contrast, according to angiography protocol. Sagittal andcoronal maximum intensity projection reformatted images provided.Evaluation for luminal stenosis measured utilizing NASCET criteria. CT scanwas performed according to ALARA (As Low as Reasonably Achievable).COMPARISON: Noncontrast CT head from earlier the same dayFINDINGS:Visualized upper lungs are clear. Airway is patent. Paranasal sinuses andmastoid air cells are clear. Posterior nasopharynx and oropharynx areunremarkable. Submandibular and parotid glands are symmetrical. Orbits areunremarkable asvisualized. No cervical lymphadenopathy. Thyroid isunremarkable. No acute bony abnormality.Conventional 3 vessel arch anatomy is identified. The bilateral commoncarotid arteries are patent and normalcaliber. The carotid bulbs arewidely patent. External carotid arteries are patent. The bilateral cervicalinternal carotid arteries are patent without evidence for hemodynamicallysignificant stenosis.The bilateral cervical vertebral arteries are nearlycodominant and are patent and normal caliber along their course.The petrous and cavernous internal carotid arteries are patent and normalcaliber. Th e central aspects of the middle cerebral, anterior cerebral andposterior cerebral arteries are patent without evidence for hemodynamicallysignificant stenosis. Basilar artery is patent normal caliber. Theintradural vertebral arteries are patent and normal caliber. originof the right posterior cerebral artery. There is a prominent venousstructure at the right middle cranial fossa, which could related to adevelopmental venous anomaly. No evidence for large intracranial aneurysm.Major dural venous sinuses are patent.IMPRESSIONNo evidence for hemodynamically significant stenosis in the neck.No evidence for central intracranial arterial occlusion or hemodynamicallysignificant stenosis.RL: 4600 [facility] 2020-02-25 00:40:00* Test Item Value Reference Range Interpretation Comme nts APPEARANCE (test code = 5027621269) Clear Clear COLOR (test code = 0723740746) Yellow Yellow PH (test code = 9689367707) 4.8-8.0 SP GRAVITY (test code = 1498939218) 1.003-1.030 GLU U QUAL (test code = 6811166762) Normal Normal BLOOD (test code = 3072024144) Negative Negative KETONES (test code = 5905505876) Negative Negative PROTEIN (test code = 2887-8) Negative Negative UROBILIN (test code = 2128930679) Normal Normal BILIRUBIN (test code = 5501163618) Negative Negative NITRITE (test code = 6992653234) Negative Negative LEUK ETHAN (test code = 5595022253) Negative Negative RBC/HPF (test code = 1089634853) See_Comment [Automated [employer]] The system which generated this result transmitted reference range: 0 - 3 HPF. The reference range was not used to interpret this result as normal/abnormal. WBC/HPF (test code = 1707262204) See_Comment [Automated [employer]] The system which generated this result transmitted reference range: 0 - 5 HPF. The reference range was not used to interpret this result as normal/abnormal. BACTERIA (test code = 3737853089) Few Negative A MUCOUS (test code = 6296354854) Slight Negative LPF A SQ EPITH (test code = 5400232121) HPF Lab Interpretation (test code = 27495-3) Abnormal [facility] [id number] 23:47:00* Test Item Value Reference Range Interpretation Comme nts TROPONIN I (test code = 6332067444) <0.012 See_Comment [Automated message] The system which generated this result transmitted reference range: <=0.034 ng/mL. The reference range was not used to interpret this result as normal/abnormal. ALESHA (test code = ALESHA) Equal or Less than 0.034 ng/ml---Normal ?Note: Cardiac troponin begins to rise 3-4 hours after the onset of ischemia. Repeat in 4-6 hours if the sample was drawn within 3-4 hours of the onset of the symptom and found normal. Between 0.035 and 0.120 ng/mL--- Borderline. Questionable myocardial injury or necrosis ? ?Note: Serial measurement may be necessary to confirm or exclude the diagnosis of myocardial injury or necrosis; Clinical correlation (symptoms, EKGs, imaging studies, and others) required; Repeat in 4-6 hours if clinically indicated. ? Equal or Higher than 0.121 ng/mL---Abnormal. Myocardial Injury or Necrosis Likely ? Biotin has been reported to cause a negative bias, interpret results relative to patient's use of biotin. ? Lab Interpretation (test code = 87048-3) [facility] (NA, K, CL, CO2, GLUCOSE, BUN, CREATININE, CA)2020-02-24 23:35:00* Test Item Value Reference Range Interpretation Comme nts NA (test code = 0295862303) 139 mmol/L 135-145 K (test code = 8717668752) 3.9 mmol/L 3.5-5 CL (test code = 3206568561) 102 mmol/L 98-108 CO2 TOTAL (test code = 3708487553) 28 mmol/L 23-31 AGAP (test code = 2660523716) 2-16 BUN (test code = 7372525886) 19 mg/dL 7-23 GLUCOSE (test code = 5470002211) 122 mg/dL 70-110 H CREATININE (test code = 4777663267) 1.14 mg/dL 0.5-1.04 H CALCIUM (test code = 9479443390) 9.3 mg/dL 8.6-10.6 eGFR Calculation (Non-) (test code = 3849678036) mL/min/1.73m2 eGFR Calculation () (test code = 6049049328) mL/min/1.73m2 ALESHA (test code = ALESHA) Association of Glomerular Filtration Rate (GFR) and Staging of Kidney Disease* + --+ --+ ------+| GFR (mL/min/1.73 m2) ?| With Kidney Damage ?| ?Without Kidney Damage+ --------+ --------+ +| ?>90 ?| ?Stage one ?| ? Normal ?+ ---+ ---+ -------+| ?60-89 ?| ?Stage two ?| ? Decreased GFR ? + --+ --+ ------+| ?30-59 ?| ?Stage three ?| ? Stage three ? + --+ --+ ------+| ?15-29 ?| ?Stage four ? | ? Stage four ?+ ---+ ---+ -------+| ?<15 (or dialysis) ? ?| ?Stage five ? | ? Stage five ?+ ---+ ---+ -------+ *Each stage assumes the associated GFR level has been in effect for at least three months. ?Stages 1 to 5, with or without kidney disease, indicate chronic kidney disease. Notes: Determination of stages one and two (with eGFR >59mL/min/1.73 m2) requires estimation of kidney damage for at least three months as defined by structural or functional abnormalities of the kidney, manifested by either:Pathological abnormalities or Markers of kidney damage (including abnormalities in the composition of the blood or urine or abnormalities in imaging tests). Lab Interpretation (test code = 42803-9) [facility]normal [facility] (ALB, T.PRO, BILI T, BU/BC, ALT, AST, ALK PHOS)2020-02-24 23:35:00* Test Item Value Reference Range Interpretation Comme nts TOTAL BILI (test code = 6458274206) 1.0 mg/dL 0.1-1.1 BILI UNCON (test code = 1512495415) 0.8 mg/dL 0.1-1.1 BILI CONJ (test code = 0726667466) 0.0 mg/dL 0-0.3 T PROTEIN (test code = 4585807686) 7.8 g/dL 6.3-8.2 ALBUMIN (test code = 0158734020) 4.2 g/dL 3.5-5 ALK PHOS (test code = 7309579273) 171 U/L 34-122 H ALTv (test code = 1742-6) 30 U/L 5-35 AST(SGOT) (test code = 0525788917) 32 U/L 13-40 Lab Interpretation (test cod e = 95464-3) Abnormal [facility] [id number] 23:35:00* Test Item Value Reference Range Interpretation Comme nts LIPASE (test code = 6864719078) 159 U/L 0-220 Lab Interpretation (test cod e = 54862-5) Normal [facility] 2 [id number] 23:27:47No acute cardiopulmonary process is seen. PROCEDURE: XR CHEST 2 02/24/2020 5:13 PM CLINICAL INDICATION: dizziness COMPARISON: Radiograph of 10/11/2018 TECHNIQUE: PA and lateral views of the chest FINDINGS: The lungs are clear. There is no pleural effusion. ?No pneumothorax. The cardiomediastinal silhouette is within normal limits. No aggressive osseous lesion. [facility], Radiant Results Inft User - 02/24/2020 5:28 PM CSTPROCEDURE: XR CHEST 2 02/24/2020 5:13 PMCLINICAL INDICATION: dizziness COMPARISON: Radiograph of 10/11/2018TECHNIQUE: PA and lateral views of the chestFINDINGS:The lungs are clear. There is no pleural effusion. No pneumothorax. The cardiomediastinal silhouette is within normal l imits. No aggressive osseous lesion.IMPRESSIONNo acute cardiopulmonary process is seen.[facility] W/O [id number] 23:27:02No acute intracranial abnormality.EXAM: CT HEAD WO CONTRAST HISTORY: Neuro deficit(s), subacute TECHNIQUE: CT of the head was performed without intravenous contrast. Wiresare clear COMPARISON: CT head dated 04/06/2017. FINDINGS: Right frontal craniotomy changes noted.The calvarium and central skull baseare otherwise unremarkable. The ventricles and sulci are normal in caliber and configuration. Focalbulging of the lateral wall of the body of left lateral ventricle mayrepresent sequela of remote insult., Unchanged from prior. Nohydrocephalus, midline shift or pathological extra-axial fluid collectionis present. The basal cisterns are unremarkable. There is no acute intracranial hemorrhage or significant mass effect. Noparenchymal attenuation abnormality. The ruvalcaba-white matter differentiationis preserved. The mastoid air cells and paranasal air sinuses are clear. [facility], Radiant Results Inft User - 02/24/2020 5:28 PM CSTEXAM: CT HEAD WO CONTRASTHISTORY: Neuro deficit(s), subacute TECHNIQUE:CT of the head was performed without intravenous contrast. Wiresare clearCOMPARISON: CT head dated 04/06/2017.FINDINGS: Right frontal craniotomy changes noted.The calvarium and central skull baseare otherwise unremarkable.The ventricles and sulci are normal in caliber and configuration. Focalbulging of the lateral wall of the body of left lateral ventricle mayrepresent sequela of remote insult., Unchanged from prior. Nohydrocephalus, midline shift or pathological extra-axial fluid collectionis present. The basal cisterns are unremarkable.There is no acute intracranial hemorrhage or significant mass effect. Noparenchymal attenuation abnormality. The ruvalcaba-white matter differentiationis preserved.The mastoid air cells and paranasal air sinuses are clear. IMPRESSIONNo acute intracranial abnormality.[facility] CenteraPTT2020-[facility] 23:19:00* Test Item Value Reference Range Interpretation Comme [facility] APTT Patient (test code = 3173-2) See_Comment [Automated message] The system which generated this result transmitted reference range: 23 - 38 Seconds. The reference range was not used to interpret this result as normal/abnormal. ALESHA (test code = ALESHA) The [facility] patient population mean normal value for aPTT is 30 seconds. Lab Interpretation (test code = 56920-6) Normal [facility] Center[facility]th[facility] Time (PT) / [id number] 23:17:00 * Test Item Value Reference Range Interpretation Comme [facility] PROTIME PATIENT (test code = 5964-2) See_Comment [Automated [employer]] The system which generated this result transmitted reference range: 12.0 - 14.7 Seconds. The reference range was not used to interpret this result as normal/abnormal. INR (test code = 6301-6) Normal INR <1.1; Warfarin Therapeutic range 2.0 to 3.0 or 2.5 to 3.5, depending upon the indications. Lab Interpretation (test code = 32572-4) Normal [facility] CenterCBC with [id number] 23:10:00* Test Item Value Reference Range Interpretation Comme [facility] WBC (test code = 6690-2) See_Comment [Automated messa ge] The system which generated this result transmitted reference range: 4.30 - 11.10 10*3/?L. The reference range was not used to interpret this result as normal/abnormal. RBC (test code = 789-8) See_Comment [Automated [employer]] The system which generated this result transmitted reference range: 3.93 - 5.25 10*6/?L. The reference range was not used to interpret this result as normal/abnormal. HGB (test code = 718-7) 13.2 g/dL 11.6-15 HCT (test code = 4544-3) 39.2 % 35.7-45.2 MCV (test code = 787-2) 87.3 fL 80.6-95.5 MCH (test code = 785-6) 29.4 pg 25.9-32.8 MCHC (test code = 786-4) 33.7 g/dL 31.6-35.1 RDW-SD (test code = 26698-2) 43.3 fL 39-49.9 RDW-CV (test code = 788-0) 13.4 % 12-15.5 PLT (test code = 777-3) See_Comment [Automated [employer]] The system which generated this result transmitted reference range: 166 - 358 10*3/?L. The reference range was not used to interpret this result as normal/abnormal. MPV (test code = 63810-6) 11.4 fL 9.5-12.9 NRBC/100 WBC (test code = 8581278044) See_Comment [Automated me [employer]age] The system which generated this result transmitted reference range: 0.0 - 10.0 /100 WBCs. The reference range was not used to interpret this result as normal/abnormal. NRBC x10^3 (test code = 6214127244) <0.01 See_Comment [Automated me ssage] The system which generated this result transmitted reference range: 10*3/?L. The reference range was not used to interpret this result as normal/abnormal. GRAN MAT (NEUT) % (test code = 770-8) 61.8 % IMM GRAN % (test code = 2178789121) 0.20 % LYMPH % (test code = 736-9) 28.2 % MONO % (test code = 5905-5) 5.3 % EOS % (test code = 713-8) 4.1 % BASO % (test code = 706-2) 0.4 % GRAN MAT x10^3(ANC) (test code = 9470510808) 5.72 10*3/uL 1.88-7.09 IMM GRAN x10^3 (test code = 8187509817) <0.03 0-0.06 LYMPH x10^3 (test code = 731-0) 2.61 10*3/uL 1.32-3.29 MONO x10^3 (test code = 742-7) 0.49 10*3/uL 0.33-0.92 EOS x10^3 (test code = 711-2) 0.38 10*3/uL 0.03-0.39 BASO x10^3 (test code = 704-7) 0.04 10*3/uL 0.01-0.07 [facility]"
[2023-11-29] MEDS ORDERED: NA CHLORIDE 0.9% 500 ML ONE (10:26)
[2023-11-29 10:48] LABS: Absolute Basophils 0.1 K/uL (0-0.5); Absolute Eosinophils 0.1 K/uL (0-0.5); Absolute Lymphocytes (CBC) 0.9 K/uL (0.7-4.9); Absolute Monocytes 0.4 K/uL (0.1-1.3); Absolute Neutrophil 8.2 K/uL (1.8-8.0); Basophils % 0.7 % (0-1.3); Hemoglobin 12.1 g/dL (12.0-15.0); Lymphocytes % 9.1 % (15.3-44.8); MCH 26.8 pg (27.0-35.0); MCHC 31.9 g/dL (32.0-36.0); MCV 83.9 fL (80-100); MPV 9.7 fL (7.6-11.3); Monocytes % 4.1 % (3.3-12.3); Neutrophils % 85.1 % (41.7-73.7); Platelets 285 thou/uL (152-406); RBC Red Blood Cell Count 4.53 M/uL (3.86-4.86); Red Cell Distribution Width 16.7 % (12.1-15.2)
[2023-11-29 11:09] LABS: Albumin 2.5 g/dL (3.4-5.0); Albumin/Globulin Ratio 0.5 (1.1-1.8); Anion Gap 8.7 mEq/L (5.0-15.0); Bilirubin Total 0.5 mg/dL (0.2-1.0); Globulin 5.3 g/dL (2.3-3.5); Magnesium 1.8 mg/dL (1.6-2.4); Potassium 3.7 mEq/L (3.5-5.1); Protein, Total 7.8 g/dL (6.4-8.2); Troponin High Sensitivity 3.1 pg/mL (<58.9)
[2023-11-29 11:36] LABS: Blood Morphology Comment NOT SEEN (NOT SEEN); Platelet Estimate ADEQ; White Blood Cell Scan OK (OK)
--- NOTE | 2023-11-29 11:45 | RAD REPORT ---
EXAM DESCRIPTION: RADChest Single View11/29/2023 11:04 am CLINICAL HISTORY: SOB COMPARISON: Chest Single View dated 11/25/2023hest Single View dated 11/25/2023 TECHNIQUE: Portable AP view of the chest. FINDINGS: Although all patchy left basilar airspace opacity, essentially stable, with streaky opacit y arising from the left hilum nerve seen, may represent additional atelectasis. Elevation of the left hemidiaphragm, with or without subpulmonic small effusion component, stable. No pneumothorax The car diomediastinal contours are unremarkable. IMPRESSION: Essentially stable findings as above.
[2023-11-29] MEDS ORDERED: ACETAMINOPHEN 325 MG TABLET PO PRN (13:33)
[2023-11-29] MEDS ORDERED: ONDANSETRON 4 MG/2 ML VIAL IV PRN (13:33)
--- NOTE | 2023-11-29 13:47 | ER ---
Nurse's Notes [facility] Name: Oxana Talavera Age: 58 yrs Sex: Female : 1965 Arrival Date: 11/29/2023 Time: 09:01 Bed 5 Private MD: Diagnosis: Unspecified bacterial pneumonia;Acute and chronic respiratory failure with hypoxia Presentation: 11/28 09:29 Chief complaint: SOB and malaise x 3 weeks. Recently inpatient for pneumonia, hb discharged Thursday. On Ceftin and Levaquin day 5. Coronavirus screen: At this time, the client does not indicate any symptoms associated with coronavirus-19. Ebola Screen: No symptoms or risks identified at this time. Initial Sepsis Screen: Does the patient meet any 2 criteria? RR > 20 per min. No. Patient's initial sepsis screen is negative. Does the patient have a suspected source of infection? No. Patient's initial sepsis screen is negative. Risk Assessment: Do you want to hurt yourself or someone else? Patient reports no desire to harm self or others. Onset of symptoms was November 08, 2023. 09:29 Method Of Arrival: Ambulatory 09:29 Acuity: GALINA 2 hb Historical: - Allergies: 09:32 Flagyl; hb - PMHx: 09:32 Bipolar disorder; Crohn's Disease; CVA; Fibromyalgia; GERD; Hypothyroidism; hb - Immunization history:: Adult Immunizations up to date. - Infectious Disease History:: Denies. - Social history:: Smoking status: Patient/guardian denies using tobacco, the patient reports quitting approximately 13 years ago. Screenin:42 [facility] ED Fall Risk Assessment (Adult) History of falling in the last 3 months, kc6 including since admission No falls in past 3 months (0 pts) Confusion or Disorientation No (0 pts) Intoxicated or Sedated No (0 pts) Impaired Gait No (0 pts) Mobility Assist Device Used No (0 pt) Altered Elimination No (0 pt) Score/Fall Risk Level 0 - 2 = Low Risk. Abuse screen: Denies threats or abuse. Denies injuries from another. Nutritional screening: No deficits noted. Tuberculosis screening: No symptoms or risk factors identified. Assessment: 09:45 General: Appears in no apparent distress. uncomfortable, obese, well groomed, well kc6 developed, Behavior is calm, cooperative, appropriate for age, Reports fatigue for 2-3 days. Pain: Denies pain. Neuro: Level of Consciousness is awake, alert, obeys commands, Oriented to person, place, time, situation, Appropriate for age Reports weakness. Cardiovascular: Capillary refill < 3 seconds. Respiratory: Reports shortness of breath at rest on exertion Airway is patent Trachea midline Respiratory effort is even, labored, pursed lip, Respiratory pattern is symmetrical, tachypnea Breath sounds with wheezes bilaterally. GI: No signs and/or symptoms were reported involving the gastrointestinal system. : No signs and/or symptoms were reported regarding the genitourinary system. EENT: No signs and/or symptoms were reported regarding the EENT system. Derm: No signs and/or symptoms reported regarding the dermatologic system. Skin is intact, is healthy with good turgor, Skin is pink, warm \T\ dry. Musculoskeletal: No signs and/or symptoms reported regarding the musculoskeletal system. Circulation, motion, and sensation intact. Capillary refill < 3 seconds, Range of motion: intact in all extremities. 10:45 Reassessment: Patient appears in no apparent distress at this time. No changes from kc6 previously documented assessment. Patient and/or family updated on plan of care and expected duration. Pain level reassessed. Patient is alert, oriented x 3, equal unlabored respirations, skin warm/dry/pink. 11:46 Reassessment: Patient appears in no apparent distress at this time. No changes from kc6 previously documented assessment. Patient and/or family updated on plan of care and expected duration. Pain level reassessed. Patient is alert, oriented x 3, equal unlabored respirations, skin warm/dry/pink. 12:45 Reassessment: Patient appears in no apparent distress at this time. No changes from kc6 previously documented assessment. Patient and/or family updated on plan of care and expected duration. Pain level reassessed. Patient is alert, oriented x 3, equal unlabored respirations, skin warm/dry/pink. 13:34 Reassessment: Patient appears in no apparent distress at this time. No changes from kc6 previously documented assessment. Patient and/or family updated on plan of care and expected duration. Pain level reassessed. Patient is alert, oriented x 3, equal unlabored respirations, skin warm/dry/pink. Vital Signs: 09:29 BP 131 / 91; Pulse 88; Resp 24; Temp 98.9(O); Pulse Ox 88% on R/A; Weight 120.66 kg; hb Height 5 ft. 9 in. ; Pain 10/10; 11:46 BP 149 / 91; Pulse 87; Resp 20 S; Pulse Ox 96% on R/A; kc6 12:45 BP 140 / 89; Pulse 89; Resp 19 S; Pulse Ox 98% on 3 lpm NC; kc6 13:34 BP 147 / 99; Pulse 91; Resp 19 S; Pulse Ox 98% on 3 lpm NC; kc6 09:29 Body Mass Index 39.28 (120.66 kg, 175.26 cm) hb 09:29 Pain Scale: Adult hb ED Course: 09:04 Patient arrived in ED. ra3 09:32 Triage completed. hb 09:32 Arm band placed on. hb 09:36 Pk Dfufy PA is PHCP. cp 09:42 Medina Alfaro MD is Attending Physician. sd2 09:55 Monica Hopson RN is Primary Nurse. kc6 10:42 Patient has correct armband on for positive identification. Bed in low position. Call kc6 light in reach. Side rails up X 1. Adult w/ patient. teletypesetter monitor on. Pulse ox on. NIBP on. Pillow given. 10:42 Inserted saline lock: 20 gauge in right forearm, using aseptic technique. Blood kc6 collected. Flushed with 10 mL NS. Oxygen administration via nasal cannula \T\ 2L/min. 11:06 XRAY Chest (1 view) In Process Unspecified. EDMS 13:46 Raheem Garcia is Hospitalizing Provider. sd2 15:07 No provider procedures requiring assistance completed. Patient admitted, IV remains in kc6 place. Administered Medications: 10:41 Drug: NS 0.9% IV 500 ml IV at bolus once Route: IV; Rate: bolus; Site: right forearm; kc6 11:24 Follow up: Response: No adverse reaction; IV Status: Completed infusion; IV Intake: kc6 500ml Medication: 15:08 VIS not applicable for this client. kc6 Intake: 11:24 IV: 500ml; Total: 500ml. kc6 Outcome: 13:46 Decision to Hospitalize by Provider. sd2 15:07 Admitted to Med/surg accompanied by tech, via wheelchair, room 412, with chart, kc6 15:07 Condition: good 15:07 Instructed on the need for admit, 15:08 Patient left the ED. kc6 Signatures: Dispatcher [employer] EDMS Pk Duffy PA PA cp Baxter, Heather, RN RN Medina Morales MD MD sd2 Monica Hopson RN RN kc6 Domitila Wyman ra3 Corrections: (The following items were deleted from the chart) 09:33 09:29 Chief complaint: SOB and malaise x 3 weeks. Recently inpatient for pneumonia, hb discharged Thursday.
--- NOTE | 2023-11-29 13:47 | EDPHYS ---
Physician Documentation [facility] Name: Oxana Talavera Age: 58 yrs Sex: Female : 1965 Arrival Date: 11/29/2023 Time: 09:01 Bed 5 Private MD: ED Physician Medina Alfaro HPI: 11/28 13:47 This 58 yrs old Female presents to ER via Ambulatory with complaints of General sd2 Weakness. 13:47 58 yo F presents with CC of pneumonia and SOB. Reports being admitted last week for PNA sd2 and discharged on abx. Has been compliant but symptoms not improving with worsening SOB. 88% on room air on arrival to ER.. Historical: - Allergies: 09:32 Flagyl; hb - PMHx: 09:32 Bipolar disorder; Crohn's Disease; CVA; Fibromyalgia; GERD; Hypothyroidism; hb - Immunization history:: Adult Immunizations up to date. - Infectious Disease History:: Denies. - Social history:: Smoking status: Patient/guardian denies using tobacco, the patient reports quitting approximately 13 years ago. ROS: 13:47 Constitutional: Negative for fever, chills, and weight loss, Eyes: Negative for injury, sd2 pain, redness, and discharge, Cardiovascular: Negative for chest pain, palpitations, and edema, 13:47 Abdomen/GI: Negative for abdominal pain, nausea, vomiting, diarrhea. MS/Extremity: Negative for injury and deformity, Skin: Negative for injury, rash, and discoloration, Neuro: Negative for headache, numbness and tingling. 13:47 Respiratory: Positive for cough, shortness of breath, Negative for Exam: 13:47 Constitutional: This is a well developed, well nourished patient who is awake, alert, sd2 and in no acute distress. Head/Face: Normocephalic, atraumatic. Eyes: EOMI, normal conjunctiva bilaterally Chest/axilla: Normal chest wall appearance and motion. Nontender with no deformity. Cardiovascular: Regular rate and rhythm with a normal S1 and S2. No gallops, murmurs, or rubs. 2+ distal pulses. Respiratory: Lungs have equal breath sounds bilaterally, clear to auscultation and percussion. Rales noted to bilateral upper lobes. No increased work of breathing, no retractions or nasal flaring. Abdomen/GI: Soft, non-tender, with normal bowel sounds. No guarding or rebound. No evidence of tenderness throughout. Skin: Warm, dry with normal turgor. Normal color with no rashes, no lesions, and no evidence of cellulitis. MS/ Extremity: Pulses equal, no cyanosis. Neurovascular intact. Full, normal range of motion. Psych: Awake, alert, with orientation to person, place and time. Behavior, mood, and affect are within normal limits. 13:47 ECG was reviewed by the Attending Physician. NSR, rate 84, no STEMI criteria sd2 Vital Signs: 09:29 BP 131 / 91; Pulse 88; Resp 24; Temp 98.9(O); Pulse Ox 88% on R/A; Weight 120.66 kg; hb Height 5 ft. 9 in. ; Pain 10/10; 11:46 BP 149 / 91; Pulse 87; Resp 20 S; Pulse Ox 96% on R/A; kc6 12:45 BP 140 / 89; Pulse 89; Resp 19 S; Pulse Ox 98% on 3 lpm NC; kc6 13:34 BP 147 / 99; Pulse 91; Resp 19 S; Pulse Ox 98% on 3 lpm NC; kc6 09:29 Body Mass Index 39.28 (120.66 kg, 175.26 cm) hb 09:29 Pain Scale: Adult hb MDM: 09:43 Patient medically screened. sd2 13:48 Differential Diagnosis PNA, COVID, PE among others. Data reviewed: vital signs, nurses sd2 notes, lab test result(s), EKG, radiologic studies. Management of patient was discussed with the following: Hospitalist: . Care significantly affected by the following chronic conditions: Crohn's disease. Counseling: I had a detailed discussion with the patient and/or guardian regarding the historical points, exam findings, and any diagnostic results supporting the discharge/admit diagnosis, lab results, radiology results, the need for further work-up and treatment in the hospital. 11/28 10:12 Order name: CBC with Diff; Complete Time: 12:00 sd2 11/28 10:12 Order name: CMP; Complete Time: 12:00 sd2 11/28 10:12 Order name: Magnesium; Complete Time: 12:00 sd2 11/28 10:12 Order name: Troponin High Sensitivity; Complete Time: 12:00 sd2 11/28 10:12 Order name: BNP; Complete Time: 12:00 sd2 11/28 10:12 Order name: Procalcitonin; Complete Time: 12:00 sd2 11/28 11:01 Order name: CBC Smear Scan; Complete Time: 12:00 EDMS 11/28 13:45 Order name: Influenza Screen (A EDMS 11/28 13:45 Order name: Respiratory Syncytial Virus Ag EDMS 11/28 13:45 Order name: SARS-COV-2 Antigen Rapid EDMS 11/28 13:45 Order name: Lactate w/ 2H reflex if indic. EDMS 11/28 13:45 Order name: Basic Metabolic Panel EDMS 11/28 13:45 Order name: Basic Metabolic Panel EDMS 11/28 13:45 Order name: Basic Metabolic Panel EDMS 11/28 13:45 Order name: Basic Metabolic Panel EDMS 11/28 13:45 Order name: Basic Metabolic Panel EDMS 11/28 13:45 Order name: Basic Metabolic Panel EDMS 11/28 13:45 Order name: Basic Metabolic Panel EDMS 11/28 13:45 Order name: Basic Metabolic Panel EDMS 11/28 13:45 Order name: CBC with Automated Diff EDMS 11/28 13:45 Order name: CBC with Automated Diff EDMS 11/28 13:45 Order name: CBC with Automated Diff EDMS 11/28 13:45 Order name: CBC with Automated Diff EDMS 11/28 13:45 Order name: CBC with Automated Diff EDMS 11/28 13:45 Order name: CBC with Automated Diff EDMS 11/28 13:45 Order name: CBC with Automated Diff EDMS 11/28 13:45 Order name: CBC with Automated Diff EDMS 11/28 13:45 Order name: Magnesium EDMS 11/28 13:45 Order name: Magnesium EDMS 11/28 13:45 Order name: Magnesium EDMS 11/28 13:45 Order name: Magnesium EDMS 11/28 13:45 Order name: Magnesium EDMS 11/28 13:45 Order name: Magnesium EDMS 11/28 13:45 Order name: Magnesium EDMS 11/28 13:45 Order name: Magnesium EDMS 11/28 13:45 Order name: Phosphorus EDMS 11/28 13:45 Order name: Phosphorus EDMS 11/28 13:45 Order name: Phosphorus EDMS 11/28 13:45 Order name: Phosphorus EDMS 11/28 13:45 Order name: Phosphorus EDDC 11/28 13:45 Order name: Phosphorus EDDC 11/28 13:45 Order name: Phosphorus EDDC 11/28 13:45 Order name: Phosphorus EDDC 11/28 13:45 Order name: Troponin High Sensitivity ED[facility] 11/28 13:45 Order name: Troponin High Sensitivity [facility] 11/28 13:45 Order name: Troponin High Sensitivity [facility] 11/28 13:45 Order name: Group A Streptococcus Rapid Sc [facility] 11/28 13:45 Order name: Sputum Culture [facility] 11/28 13:45 Order name: Urinalysis w/ reflexes [facility] 11/28 10:12 Order name: XRAY Chest (1 view); Complete Time: 12:00 sd2 11/28 13:45 Order name: CONS Physician Consult [facility] 11/28 13:45 Order name: Physical Therapy Consult [facility] 11/28 13:45 Order name: EKG Electrocardiogram [facility] 11/28 10:12 Order name: EKG - Nurse/Tech; Complete Time: 10:41 sd2 Administered Medications: 10:41 Drug: NS 0.9% IV 500 ml IV at bolus once Route: IV; Rate: bolus; Site: right forearm; kc6 11:24 Follow up: Response: No adverse reaction; IV Status: Completed infusion; IV Intake: kc6 500ml Disposition Summary: 11/29/23 13:46 Hospitalization Ordered Notes: Hospitalization Status: Inpatient Admission sd2 Provider: Raheem Garcia2 [facility] sd2 Condition: Stable sd2 Problem: an ongoing problem sd2 Symptoms: have worsened sd2 Bed/Room Type: [place] [address] Room Assignment: 412(11/29/23 14:12) eb Diagnosis - Unspecified bacterial pneumonia sd2 - Acute and chronic respiratory failure with hypoxia sd2 Forms: - Medication Reconciliation Form sd2 - SBAR form sd2 - Leadership Thank You Letter sd2 Signatures: Dispatcher [employer] Blank Prasad RN RN Evie Brizuela Stephanie, MD MD sd2 Monica Hopson RN RN kc6 Corrections: (The following items were deleted from the chart) 14:12 13:46 sd2 eb
--- NOTE | 2023-11-29 13:51 | P.HP ---
Certification for Inpatient Patient admitted to: Inpatient With expected LOS: <2 Midnights Patient will require the following post-hospital care: None Practitioner: I am a practitioner with admitting privileges, knowledge of patient current condition, hospital course, and medical plan of care. Services: Services provided to patient in accordance with Admission requirements found in Title 42 Section 412.3 of the Code of Federal Regulations Patient History Date of Service: 11/29/23 Reason for admission: Weakness History of Present Illness: Oxana Talavera is a 58 year old female with Pmhx Bipolar disorder, CVA, Fibromyalgia, Crohn's disease, Hypothyroidism, GERD, who presents to the ED with chief complaint of continued weakness. She has been treated for PNA both outpatient and inpatient. She was recently discharged with dual PO antibiotics of which she reports compliance. Her weakness and cough continues. Upon arrival to the ED, her oxygenation was 88% and was put on 2 LNC, procalcitonin 0.11. Initial vitals BP 131 / 91; Pulse 88; Resp 24; Temp 98.9(O); Pulse Ox 88% on R/A Laboratory evaluation WBC 9.6, H&H 12/38, platelet 285, BUN/creatinine 10/1.13, GFR 56, serum glucose 122 CXR reports "Although all patchy left basilar airspace opacity, essentially stable, with streaky opacity arising from the left hilum nerve seen, may represent additional atelectasis. Elevation of the left hemidiaphragm, with or without subpulmonic small effusion component, stable. No pneumothorax The cardiomediastinal contours are unremarkable. IMPRESSION: Essentially stable findings as above." Oxana will be admitted to hospitalist service for further evaluation and treatment, Dr. Montero consulted. Allergies metronidazole [From Flagyl] Allergy (Verified 11/25/23 18:55) Anaphylaxis Home Medications: Aspirin [Aspirin EC 325 MG] 11/25/23 Atorvastatin Calcium [Lipitor] 11/25/23 Cyanocobalamin (Vitamin B-12) [Vitamin B-12] 11/25/23 Duloxetine [Cymbalta *] 60 mg FT 11/25/23 Gabapentin 500 mg PO 11/25/23 Krill/Hardwick-3/Dha/Epa/Lipids [Hardwick-3 Krill Oil 500 mg Sfgl] 11/25/23 Levothyroxine [Synthroid*] 11/25/23 Omeprazole [Prilosec] 11/25/23 Zinc Amino Acid Chelate [Zinc] 11/25/23 clonazePAM [Clonazepam] PRN 11/25/23 Cefuroxime [Ceftin] 500 mg PO BID 5 Days #20 tab 11/26/23 Guaifenesin [Mucinex] 600 mg PO Q12H PRN 7 Days #14 tab 11/26/23 Levofloxacin [Levaquin] 750 mg PO DAILY 5 Days #5 tab 11/26/23 Review of Systems General: Weakness Respiratory: Cough, Shortness of Breath Physical Examination - Physical Exam General: Alert, In no apparent distress, Oriented x3, Other (uncomfortable) HEENT: Atraumatic, Normocephalic, PERRLA Neck: Supple, 2+ carotid pulse no bruit Respiratory: Clear to auscultation bilaterally, Normal air movement Cardiovascular: Normal pulses, Regular rate/rhythm, Normal S1 S2 Capillary refill: <2 Seconds Gastrointestinal: Normal bowel sounds Musculoskeletal: No clubbing Integumentary: No rashes Neurological: Normal speech, Normal tone - Studies Laboratory Data (last 24 hrs) 11/29/23 11/29/23 10:40 10:40 WBC 9.60 Hgb 12.1 Hct 38.0 Plt Count 285 Sodium 139 Potassium 3.7 BUN 10 Creatinine 1.13 H Glucose 122 H Magnesium 1.8 Total Bilirubin 0.5 AST 35 ALT 17 Alkaline Phosphatase 198 H Assessment and Plan - Plan Assessment and PLan Acute on chronic respiratory failure with hypoxia suspect secondary to pneumonia Weakness -CXR reports Essentially stable with additional atelectasis -Outpatient abx levaquin and ceftin -Strep, COVID, RSV, flu, lactic pending -sputum culture ordered -Merrem started -oxygen supplementation PRN, Incentive spirometry -xopenex -Blood cultures 05/27 NGTD, will repeat blood cultures -Procalcitonin 0.11 -Dr. Montero consulted -PT consulted CAIO -BUN/ljstozgdwi72/1.13, GFR 56 -500 mL normal saline given in the ED -Evaluate in the ED Hyperglycemia -serum glucose 122 -A1C in the AM -no reported diabetes in her history Bipolar disorder CVA Fibromyalgia Crohn's disease Hypothyroidism GERD -Continue home medications DVT PPx heparin Full code LOS 2 to 3 days Discharge Plan: Home Plan to discharge in: 48 Hours Discharge Plan: Home Plan to discharge in: 72 Hours - Advance Directives Does patient have a Living Will: No Does patient have a Durable POA for Healthcare: No
[2023-11-29 15:18] VITALS: BMI 39.2
[2023-11-29 17:02] LABS: SARS-CoV-2 Antigen CONTROL BLUE LINE VIS/BG OK
[2023-11-29 17:04] LABS: SARS-CoV-2 Antigen Rapid Res Positive (Negative)
[2023-11-29] MEDS: HEPARIN 5000 UNIT/ML 1 ML VIAL SQ SCH (17:07)
[2023-11-29] MEDS: ALBUTEROL 2.5 MG/3 ML NEB SOL NEB SCH (20:04)
[2023-11-29] MEDS: ATORVASTATIN 80 MG TAB PO SCH (21:00)
[2023-11-29] MEDS: Meropenem 1,000 MG in NA CHLORIDE 0.9% 100 ML IV SCH (21:42)
[2023-11-30 06:14] LABS: Absolute Basophils 0.1 K/uL (0-0.5); Absolute Eosinophils 0.1 K/uL (0-0.5); Absolute Lymphocytes (CBC) 1.7 K/uL (0.7-4.9); Absolute Monocytes 0.6 K/uL (0.1-1.3); Absolute Neutrophil 6.6 K/uL (1.8-8.0); Basophils % 0.6 % (0-1.3); Eosinophils % 1.1 % (0-4.4); Hematocrit 33.8 % (36.0-45.0); Hemoglobin 10.7 g/dL (12.0-15.0); Lymphocytes % 18.3 % (15.3-44.8); MCH 26.3 pg (27.0-35.0); MCHC 31.8 g/dL (32.0-36.0); MCV 82.7 fL (80-100); MPV 9.8 fL (7.6-11.3); Monocytes % 6.8 % (3.3-12.3); Neutrophils % 73.2 % (41.7-73.7); Platelets 280 thou/uL (152-406); RBC Red Blood Cell Count 4.09 M/uL (3.86-4.86); Red Cell Distribution Width 16.6 % (12.1-15.2)
[2023-11-30] MEDS: PANTOPRAZOLE 40MG TABLET PO SCH (06:22)
[2023-11-30 06:33] LABS: Anion Gap 7.5 mEq/L (5.0-15.0); Magnesium 1.8 mg/dL (1.6-2.4); Phosphorus 4.1 mg/dL (2.5-4.9); Potassium 3.5 mEq/L (3.5-5.1)
[2023-11-30 07:40] LABS: Specific Gravity 1.024 (1.005-1.030); Sqamous Epithelial <5 /HPF (None Seen); Urine Bacteria None Seen /HPF (<20); Urine Bilirubin NEGATIVE (Negative); Urine Blood Negative (Negative); Urine Clarity Turbid (Clear); Urine Color Yellow (Yellow); Urine Culture Reflex Order NOT NEEDED; Urine Glucose NEGATIVE (Negative); Urine Ketones TRACE (Negative); Urine Microscopic Reflex YN ORDER UMIC; Urine Mucus Slight /HPF (None Seen); Urine Nitrite NEGATIVE (Negative); Urine Protein 1+ (Negative); Urine RBC <5 /HPF (None Seen); Urine Urobilinogen Normal (Normal); Urine Yeast (Budding) Trace /HPF (None Seen); Urine pH 5.5 (5.0-7.0)
[2023-11-30] MEDS: GABAPENTIN 100 MG CAP PO SCH (08:32)
[2023-11-30] MEDS: LEVOTHYROXINE SOD 0.075 MG TAB PO SCH (08:32)
[2023-11-30] MEDS: clonazePAM 1 MG TAB PO SCH (08:32)
[2023-11-30] MEDS: MAGNESIUM SULFATE 1 gm IVPB 1 GM/100 ML BAG IV ONE (08:32)
[2023-11-30] MEDS: DULOXETINE 20 MG CAP PO SCH (08:32)
[2023-11-30] MEDS: POTASSIUM 25 MEQ EFFERV TAB PO ONE (08:32)
[2023-11-30] MEDS: CYANOCOBALAMIN 1,000 MCG TAB PO SCH (08:32)
--- NOTE | 2023-11-30 10:01 | EKG ---
Test Date: 2023-11-29 Test Time: 10:32:30 [employer]: DAQUAN MEASUREMENT RESULTS: Intervals: Rate: 84 ND: 126 QRSD: 72 QT: 380 QTc: 449 [place]: P: 38 ND: 126 QRS: 50 T: -7 INTERPRETIVE STATEMENTS: Normal sinus rhythm Low voltage QRS Nonspecific T wave abnormality Abnormal ECG Compared to ECG 11/25/2023 14:10:27 T-wave abnormality now present ST (T wave) deviation no longer present Electronically Signed On 11-30-23 10:00:13 CDT by Jaxson Hoover
--- NOTE | 2023-11-30 12:00 | P.CNS ---
Date of Consult: 11/30/23 Reason for Consult: Possible pneumonia Chief Complaint: Weakness History of Present Illness: Patient is 58 years of age. To the hospital with abnormal chest x-ray she was tested positive for coronavirus complaining of dyspnea for months has occasional cough she was seen in urgent care for pneumonia and treated with azithromycin and steroid worse ended up here in the hospital Patient's chest x-ray is abnormal may have an effusion on the left side currently was hypoxic on admission patient is a former smoker but in 2010 Allergies metronidazole [From Flagyl] Allergy (Verified 11/25/23 18:55) Anaphylaxis Home Medications: Aspirin [Aspirin EC 325 MG] 1 tab PO DAILY 11/25/23 Atorvastatin Calcium [Lipitor] 1 tab PO BEDTIME 11/25/23 Cyanocobalamin (Vitamin B-12) [Vitamin B-12] 1 cap PO DAILY 11/25/23 Duloxetine [Cymbalta *] 1 tab PO DAILY 11/25/23 Gabapentin 1 cap PO DAILY 11/25/23 Krill/Faith-3/Dha/Epa/Lipids [Faith-3 Krill Oil 500 mg Sfgl] 1 cap PO DAILY 11/25/23 Levothyroxine [Synthroid*] 1 tab PO DAILY 11/25/23 Omeprazole [Prilosec] 1 cap PO [id number] 11/25/23 clonazePAM [Clonazepam] 1 tab PO DAILY 11/25/23 Levofloxacin [Levaquin] 750 mg PO DAILY 5 Days #5 tab 11/26/23 Cefuroxime [Ceftin] 1 tab PO BID 11/29/23 - Past Medical/Surgical History Diabetic: No -: Hypertension -: strokes -: Bipolar -: pneumonia -: Fibromalgia, -: arthitis -: HYpothyridism -: GERD -: Crohn's disease -: [place] ligition -: partial hysterectomy -: brain biopsy - Social History Smoking Status: Unknown if ever smoked Alcohol use: No CD- Drugs: No Caffeine use: No Place of Residence: Home Review of Systems 10-point ROS is otherwise unremarkable General: Weakness Respiratory: Cough, Shortness of Breath Physical Examination Temp Pulse Resp BP Pulse Ox 95.8 F L 88 18 116/64 92 11/30/23 08:00 11/30/23 08:00 11/30/23 08:00 11/30/23 08:00 11/30/23 08:00 General: Alert, In no apparent distress, Oriented x3 Neck: Supple Respiratory: Diminished Cardiovascular: No edema (The left side), Normal pulses, Regular rate/rhythm Gastrointestinal: Normal bowel sounds, Soft and benign - Problems (1) Pneumonia Current Visit: Yes Status: Acute Plan: Patient is 58 years of age has been sick for about a week. As an outpatient with azithromycin and steroids no relief got worse ended up here with possible left lower lobe pneumonia addition to hypoxemia she has had chronic ongoing dyspnea number smoker tested positive for coronavirus Hilda is unremarkable white count is normal cultures are also normal recommend treat with levofloxacin bilateral decubitus of the chest check room air pulse ox I suspect that she has underlying obstructive airways disease from former smoking bronchodilator will need outpatient follow-up
[2023-11-30] MEDS: levoFLOXacin 750 MG TAB PO SCH (12:59)
[2023-11-30] MEDS: DULERA 200/5 (MOMETASONE/FORMOTEROL) INHALER IH SCH (14:36)
--- NOTE | 2023-11-30 14:38 | RAD REPORT ---
EXAM DESCRIPTION: RAD - Chest Lateral Decubitus - 11/30/2023 2:12 pm CLINICAL HISTORY: Pleural effusion FINDINGS: Small to moderate mostly layering left pleural effusion
[2023-11-30] MEDS: ACETAMINOPHEN 500 MG TAB PO PRN (15:38)
--- NOTE | 2023-11-30 18:43 | P.PN ---
Date of Service: 11/30/23 Subjective Feeling well, remains on oxygen RA at 88%, will need to attempt to wean ROS 10 point ROS as noted above, otherwise negative Physical Exam General: AAO x3, NAD HEENT: Atraumatic, Normocephalic, PERRLA Neck: Supple, 2+ carotid pulse no bruit Respiratory: Clear to auscultation bilaterally, Normal air movement, on 2 LNC Cardiovascular: Normal pulses, NSR, Normal S1 S2 Capillary refill: <2 Seconds Gastrointestinal: Normal bowel sounds Musculoskeletal: No clubbing Integumentary: No rashes Neurological: Normal speech, Normal tone Vitals Reviewed Problem list Acute on chronic respiratory failure with hypoxia 2/2 COVID Weakness CAIO Hyperglycemia Bipolar disorder CVA Fibromyalgia Crohn's disease Hypothyroidism GERD Assessment and Plan Acute on chronic respiratory failure with hypoxia 2/2 COVID Weakness -CXR reports Essentially stable with additional atelectasis -Outpatient abx levaquin and ceftin -Strep, COVID, RSV, flu, lactic pending -sputum culture ordered -Merrem started -oxygen supplementation PRN, Incentive spirometry -RA today 88%, remains on oxygen -xopenex -Blood cultures 05/27 NGTD, will repeat blood cultures -Procalcitonin 0.11 -Dr. Montero consulted- levaquin and steroids -PT consulted CAIO -BUN/eeggdaneew03/0.86, GFR 77 -500 mL normal saline given in the ED -Evaluate in the ED Hyperglycemia- resolved -serum glucose 106 -A1C 5.4 -no reported diabetes in her history -Started steroids 11/29 Bipolar disorder CVA Fibromyalgia Crohn's disease Hypothyroidism GERD -Continue home medications DVT PPx heparin Full code LOS 2 to 3 days Discharge Plan: Home Plan to discharge in: 48 Hours Discharge Plan: Home
[2023-11-30] MEDS: predniSONE 20 MG TAB PO SCH (21:13)
[2023-12-01 07:06] LABS: Absolute Basophils 0.1 K/uL (0-0.5); Absolute Lymphocytes (CBC) 0.6 K/uL (0.7-4.9); Absolute Monocytes 0.3 K/uL (0.1-1.3); Absolute Neutrophil 7.5 K/uL (1.8-8.0); Basophils % 0.9 % (0-1.3); Eosinophils % 0.1 % (0-4.4); Hemoglobin 10.9 g/dL (12.0-15.0); Lymphocytes % 7.5 % (15.3-44.8); MCH 27.4 pg (27.0-35.0); MCV 82.8 fL (80-100); MPV 9.8 fL (7.6-11.3); Monocytes % 3.1 % (3.3-12.3); Neutrophils % 88.4 % (41.7-73.7); Nucleated Red Blood Cells % 0.1 % (0-0); Platelets 268 thou/uL (152-406); RBC Red Blood Cell Count 3.99 M/uL (3.86-4.86); Red Cell Distribution Width 17.1 % (12.1-15.2)
[2023-12-01 07:31] LABS: Anion Gap 7.2 mEq/L (5.0-15.0); Magnesium 2.1 mg/dL (1.6-2.4); Potassium 4.2 mEq/L (3.5-5.1)
[2023-12-01] MEDS: ENOXAPARIN 40 MG/0.4 ML SQ SCH (08:21)
--- NOTE | 2023-12-01 11:58 | P.PN ---
Subjective Date of Service: 12/01/23 Chief Complaint: Left-sided pleural effusion will underlying COPD Subjective: Improving (Patient is improving doing better left-sided pleural effusion) Review of Systems 10-point ROS is otherwise unremarkable Physical Examination - Vital Signs Temperature: 95.0 F Blood Pressure: 117/74 Pulse: 88 Respirations: 18 Pulse Ox (%): 90 - Physical Exam General: Alert, Oriented x3 Respiratory: Clear to auscultation bilaterally, Diminished (Diminished on the left side) Cardiovascular: No edema, Regular rate/rhythm Assessment And Plan - Current Problems (Diagnosis) (1) Pneumonia Current Visit: Yes Status: Acute Plan: Patient has a left-sided pleural effusion secondary to a pneumonia patient's white count is normal also ordered a CT pulmonary angiogram patient is borderline hypoxemic Qualifiers: Pneumonia type: due to unspecified organism (2) COPD exacerbation Current Visit: Yes Status: Acute Plan: I suspect patient has underlying chronic obstructive pulmonary disease and will benefit with a low-dose steroids and long-acting bronchodilator at discharge
--- NOTE | 2023-12-01 14:05 | RAD REPORT ---
EXAM DESCRIPTION: CT - Chest For Pe Angio - 12/01/2023 1:22 pm CLINICAL HISTORY: Chest pain TECHNIQUE: Dynamically enhanced axial 3 mm thick images of the chest were obtained during administra tion of 100 mL Isovue 370 IV contrast. Coronal and oblique reconstruction images were generated and r eviewed. Exam utilizes a protocol for optimal evaluation of pulmonary arterial tree. Maximum intensity projections 3D imaging was utilized All CT scans are performed using dose optimization technique as appropriate and may include automated exposure control or mA/KV adjustment according to patient size. FINDINGS: A pulmonary embolus is not seen. A thoracic aortic aneurysm is not noted. Moderate to large left pleural effusion. Left basilar atelectasis. Mild ground-glass opacities within t51he lungs. A pericardial effusion is not seen. Fatty liver. Small amount ascites upper abdomen IMPRESSION: Negative for a pulmonary embolism. Moderate to large left pleural effusion which appears increased from prior chest x-ray
[2023-12-01] MEDS: FUROSEMIDE 20 MG/ 2ML VIAL IV ONE (14:16)
--- NOTE | 2023-12-01 16:11 | P.PN ---
Date of Service: 12/01/23 Subjective Still with significant dyspnea on exertion Feels a little better than yesterday No acute events overnight ROS 10 point ROS as noted above, otherwise negative Physical Exam General: AAO x3, NAD HEENT: Atraumatic, Normocephalic, PERRLA Neck: Supple, 2+ carotid pulse no bruit Respiratory: Clear to auscultation bilaterally, Normal air movement, on 2 LNC Cardiovascular: Normal pulses, NSR, Normal S1 S2, 1+ pitting edema bilateral lower extremities Capillary refill: <2 Seconds Gastrointestinal: Normal bowel sounds Musculoskeletal: No clubbing Integumentary: No rashes Neurological: Normal speech, Normal tone Vitals Reviewed Problem list COVID-19 pneumonia Moderate to large left pleural effusion Acute on chronic respiratory failure with hypoxia secondary to above Weakness CAIO Hyperglycemia Bipolar disorder CVA Fibromyalgia Crohn's disease Hypothyroidism GERD Plan COVID-19 pneumonia Moderate to large left pleural effusion Acute on chronic respiratory failure with hypoxia secondary to above -CT PE protocol 11/30 shows moderate to large left pleural effusion, bilateral groundglass opacities -Also with lower extremity edema1+ pitting -Echocardiogram ordered, continue IV Lasix for diuresis -Continue antibiotics/Levaquin -oxygen supplementation PRN, Incentive spirometry -RA today 88%, remains on oxygen -Blood cultures with no growth to date -Procalcitonin 0.11 -Dr. Montero consulted- levaquin and steroids -PT consulted-significant dyspnea on exertion CAIO -Monitor renal function daily Hyperglycemia- resolved -A1C 5.4 -no reported diabetes in her history -Started steroids 11/29 Bipolar disorder CVA Fibromyalgia Crohn's disease Hypothyroidism GERD -Continue home medications DVT PPx heparin Full code LOS 2 to 3 days Discharge Plan: Home Plan to discharge in: 48 Hours Discharge Plan: Home
[2023-12-01] MEDS: FUROSEMIDE 20 MG/ 2ML VIAL IV SCH (16:45)
[2023-12-01] MEDS: clonazePAM 1 MG TAB PO SCH (20:52)
[2023-12-01] MEDS: GABAPENTIN 100 MG CAP PO SCH (20:52)
[2023-12-02 06:58] LABS: Absolute Lymphocytes (CBC) 1.1 K/uL (0.7-4.9); Absolute Monocytes 0.6 K/uL (0.1-1.3); Absolute Neutrophil 11.2 K/uL (1.8-8.0); Basophils % 0.1 % (0-1.3); Hematocrit 31.9 % (36.0-45.0); Hemoglobin 10.5 g/dL (12.0-15.0); Lymphocytes % 8.4 % (15.3-44.8); MCHC 32.9 g/dL (32.0-36.0); MCV 82.1 fL (80-100); MPV 9.6 fL (7.6-11.3); Monocytes % 4.7 % (3.3-12.3); Neutrophils % 86.8 % (41.7-73.7); Platelets 315 thou/uL (152-406); RBC Red Blood Cell Count 3.89 M/uL (3.86-4.86); Red Cell Distribution Width 17.1 % (12.1-15.2)
[2023-12-02 07:05] LABS: Anion Gap 7.9 mEq/L (5.0-15.0); Potassium 3.9 mEq/L (3.5-5.1)
--- NOTE | 2023-12-02 13:49 | ECHO ---
HEIGHT: 5 ft 9 in WEIGHT: 266 lb 0 oz DATE OF STUDY: 12/02/[address]: Lambert Veliz NP 2-DIMENSIONAL: YES M.MODE: YES DOPPLER: YES COLOR FLOW: YES TDS: PORTABLE: YES DEFINITY: BUBBLE STUDY: DIAGNOSIS: DYSPNEA ON EXERTION/ LOWER EXTREMITY EDEMA CARDIAC HISTORY: CATHERIZATION: SURGERY: PROSTHETIC VALVE: PACEMAKER: MEASUREMENTS (cm) DIASTOLIC (NORMALS) SYSTOLIC (NORMALS) IVSd 0.9 (0.6-1.2) LA Diam (1.9-4.0) LVEF 60-65% LVIDd 3.5 (3.5-5.7) LVIDs 2.1 (2.0-3.5) %FS 41% LVPWd 0.9 (0.6-1.2) Ao Diam 2.6 (2.0-3.7) 2 DIMENSIONAL ASSESSMENT: RIGHT ATRIUM: NORMAL LEFT ATRIUM: NORMAL RIGHT VENTRICLE: NORMAL LEFT VENTRICLE: NORMAL TRICUSPID VALVE: NORMAL MITRAL VALVE: NORMAL PULMONIC VALVE: NORMAL AORTIC VALVE: NORMAL PERICARDIAL EFFUSION: NONE AORTIC ROOT: NORMAL LEFT VENTRICULAR WALL MOTION: NORMAL DOPPLER/COLOR FLOW: NORMAL COMMENTS: 1. NORMAL LEFT VENTRICULAR SYSTOLIC FUNCTION, EJECTION FRACTION 60-65%, NORMAL WALL MOTION. 2. NORMAL DIASTOLIC FUNCTION TECHNOLOGIST: JAMAL NUR
--- NOTE | 2023-12-02 15:32 | P.PN ---
Date of Service: 12/02/23 Subjective Still with significant dyspnea on exertion Feels a little better than yesterday No acute events overnight Diuresing well ROS 10 point ROS as noted above, otherwise negative Physical Exam General: AAO x3, NAD HEENT: Atraumatic, Normocephalic, PERRLA Neck: Supple, 2+ carotid pulse no bruit Respiratory: Clear to auscultation bilaterally, Normal air movement, on 2 LNC Cardiovascular: Normal pulses, NSR, Normal S1 S2, 1+ pitting edema bilateral lower extremities Capillary refill: <2 Seconds Gastrointestinal: Normal bowel sounds Musculoskeletal: No clubbing Integumentary: No rashes Neurological: Normal speech, Normal tone Vitals Reviewed Problem list COVID-19 pneumonia Acute systolic congestive heart failure Moderate to large left pleural effusion Acute on chronic respiratory failure with hypoxia secondary to above Weakness CAIO Hyperglycemia Bipolar disorder CVA Fibromyalgia Crohn's disease Hypothyroidism GERD Plan COVID-19 pneumonia Acute systolic congestive heart failure Moderate to large left pleural effusion Acute on chronic respiratory failure with hypoxia secondary to above -CT PE protocol 11/30 shows moderate to large left pleural effusion, bilateral groundglass opacities -Also with lower extremity edema1+ pitting -Continue antibiotics/Levaquin -oxygen supplementation PRN, Incentive spirometry -RA today 88%, remains on oxygen -Blood cultures with no growth to date -Procalcitonin 0.11 -Dr. Montero consulted- levaquin and steroids -PT consulted-significant dyspnea on exertion Echo performed 12/01 shows 1. SEVERE REDUCED LEFT VENTRICULAR SYSTOLIC FUNCTION, EJECTION FRACTION 10- 15%, SEVERE GLOBAL HYPOKINESIS 2. GRADE III DIASTOLIC DYSFUNCTION 3. SEVERE DILATED LEFT ATRIUM 4. ELEVATED FILLING PRESSURE (RIGHT ATRIUM GREATER THAN 20 mmHg) Continue IV diuresis, cardiology consultation placed CAIO -Improved -Monitor renal function daily Hyperglycemia- resolved -A1C 5.4 -no reported diabetes in her history -Started steroids 11/29 Bipolar disorder CVA Fibromyalgia Crohn's disease Hypothyroidism GERD -Continue home medications DVT PPx heparin Full code LOS 2 to 3 days Discharge Plan: Home Plan to discharge in: 48 Hours Discharge Plan: Home
[2023-12-02] MEDS: FUROSEMIDE 40 MG/4 ML VIAL IV SCH (18:14)
[2023-12-03 06:39] LABS: Absolute Lymphocytes (CBC) 1.2 K/uL (0.7-4.9); Absolute Monocytes 0.6 K/uL (0.1-1.3); Basophils % 0.1 % (0-1.3); Hematocrit 31.8 % (36.0-45.0); Hemoglobin 10.3 g/dL (12.0-15.0); Lymphocytes % 11.1 % (15.3-44.8); MCHC 32.5 g/dL (32.0-36.0); MCV 83.1 fL (80-100); MPV 9.7 fL (7.6-11.3); Monocytes % 5.2 % (3.3-12.3); Neutrophils % 83.6 % (41.7-73.7); Platelets 315 thou/uL (152-406); RBC Red Blood Cell Count 3.82 M/uL (3.86-4.86)
[2023-12-03 06:49] LABS: Anion Gap 9.7 mEq/L (5.0-15.0); Magnesium 2.1 mg/dL (1.6-2.4); Phosphorus 3.6 mg/dL (2.5-4.9); Potassium 3.7 mEq/L (3.5-5.1)
--- NOTE | 2023-12-03 08:01 | RAD REPORT ---
EXAM DESCRIPTION: RAD - Chest Single View - 12/03/2023 6:51 am CLINICAL HISTORY: eval pleural effusion Chest pain. COMPARISON: Chest Single View dated 11/29/2023; Chest Single View dated 11/25/2023; Chest For Pe Angio dated 12/01/2023 FINDINGS: Portable technique limits examination quality. Moderate to large left pleural effusion is present with underlying atelectasis in the left lung base. The right lung is grossly clear. The heart is mildly prominent in size.
--- NOTE | 2023-12-03 09:31 | RAD REPORT ---
EXAM DESCRIPTION: RAD - Chest Lateral Decubitus - 12/03/2023 9:25 am CLINICAL HISTORY: left pleural effusion COMPARISON: Chest Single View dated 12/03/2023; Chest For Pe Angio dated 12/01/2023 FINDINGS: Moderate left pleural effusion is present with linear in component measuring maximally tommie roximately 3.5 cm in thickness. Moderate loculation is likely present. No significant right-sided eff usion.
[2023-12-03] MEDS: POTASSIUM CL SA 10 MEQ TAB PO ONE (10:33)
--- NOTE | 2023-12-03 12:16 | P.PN ---
Subjective Date of Service: 12/03/23 Chief Complaint: Left-sided pleural effusion will underlying COPD Subjective: Improving (Patient is doing much better has improved significantly) Review of Systems 10-point ROS is otherwise unremarkable Physical Examination - Vital Signs Temperature: 97.0 F Blood Pressure: 122/57 Pulse: 90 Respirations: 20 Pulse Ox (%): 90 - Physical Exam General: Alert, Oriented x3 Respiratory: Clear to auscultation bilaterally, Diminished (The left side) Cardiovascular: No edema, Regular rate/rhythm Assessment And Plan - Current Problems (Diagnosis) (1) COPD exacerbation Current Visit: Yes Status: Acute Plan: Patient has improved significantly and can be discharged home on long-acting bronchodilators May need home O2 (2) Pleural effusion Current Visit: Yes Status: Acute Plan: Denies left-sided pleural effusion very anxious about thoracentesis dense of any infection related to an underlying pneumonia although she is not septic plan to discharge home on Dulera avoid steroids oxygen total of 7 days with me in 2 weeks will repeat chest x-ray patient thoracentesis if needed
--- NOTE | 2023-12-03 14:47 | P.PN ---
Date of Service: 12/03/23 Subjective Still with significant dyspnea on exertion Feels a little better than yesterday No acute events overnight ROS 10 point ROS as noted above, otherwise negative Physical Exam General: AAO x3, NAD HEENT: Atraumatic, Normocephalic, PERRLA Neck: Supple, 2+ carotid pulse no bruit Respiratory: Clear to auscultation bilaterally, Normal air movement, on 2 LNC Cardiovascular: Normal pulses, NSR, Normal S1 S2, 1+ pitting edema bilateral lower extremities Capillary refill: <2 Seconds Gastrointestinal: Normal bowel sounds Musculoskeletal: No clubbing Integumentary: No rashes Neurological: Normal speech, Normal tone Vitals Reviewed Problem list COVID-19 pneumonia Moderate to large left pleural effusion Acute on chronic respiratory failure with hypoxia secondary to above Weakness CAIO Hyperglycemia Bipolar disorder CVA Fibromyalgia Crohn's disease Hypothyroidism GERD Plan COVID-19 pneumonia Moderate to large left pleural effusion Acute on chronic respiratory failure with hypoxia secondary to above -CT PE protocol 11/30 shows moderate to large left pleural effusion, bilateral groundglass opacities -Also with lower extremity edema1+ pitting -Continue antibiotics/Levaquin -oxygen supplementation PRN, Incentive spirometry -Blood cultures with no growth to date -Procalcitonin 0.11 -Dr. Montero consulted- levaquin and steroids -PT consulted-significant dyspnea on exertion -Echo shows normal systolic/diastolic function per cardiology -Discussed possible thoracentesis with patient regarding left moderate to large pleural effusion -Patient declines thoracentesis at this time given concern for complications -Will assess patient for need for oxygen, possible discharge tomorrow on home O2/close follow-up with pulmonology CAIO -Improved -Monitor renal function daily Hyperglycemia- resolved -A1C 5.4 -no reported diabetes in her history -Started steroids 11/29 Bipolar disorder CVA Fibromyalgia Crohn's disease Hypothyroidism GERD -Continue home medications DVT PPx heparin Full code LOS 1-2 days Discharge Plan: Home Plan to discharge in: 48 Hours Discharge Plan: Home
[2023-12-03] MEDS: FUROSEMIDE 20 MG/ 2ML VIAL IV SCH (17:25)
[2023-12-03 21:46] VITALS: O2SAT 95
[2023-12-04 06:37] LABS: Absolute Basophils 0.1 K/uL (0-0.5); Absolute Lymphocytes (CBC) 1.8 K/uL (0.7-4.9); Absolute Monocytes 0.9 K/uL (0.1-1.3); Absolute Neutrophil 7.1 K/uL (1.8-8.0); Basophils % 0.5 % (0-1.3); Eosinophils % 0.1 % (0-4.4); Hematocrit 33.8 % (36.0-45.0); Hemoglobin 10.6 g/dL (12.0-15.0); Lymphocytes % 18.1 % (15.3-44.8); MCH 26.2 pg (27.0-35.0); MCHC 31.3 g/dL (32.0-36.0); MCV 83.5 fL (80-100); Monocytes % 9.3 % (3.3-12.3); Platelets 279 thou/uL (152-406); RBC Red Blood Cell Count 4.05 M/uL (3.86-4.86); Red Cell Distribution Width 17.2 % (12.1-15.2)
[2023-12-04 07:58] LABS: Anion Gap 8.1 mEq/L (5.0-15.0); Magnesium 2.1 mg/dL (1.6-2.4); Phosphorus 4.4 mg/dL (2.5-4.9); Potassium 3.1 mEq/L (3.5-5.1)
[2023-12-04 08:11] VITALS: BP 119/81; TEMP 96.8
--- NOTE | 2023-12-04 15:03 | P.DS ---
Admission Date: 11/29/23 Discharge Date: 12/04/23 Disposition: ROUTINE DISCHARGE Discharge Condition: GOOD Reason for Admission: Left-sided pleural effusion will underlying COPD Brief History of Present Illness: Oxana Talavera is a 58 year old female with Pmhx Bipolar disorder, CVA, Fibromyalgia, Crohn's disease, Hypothyroidism, GERD, who presents to the ED with chief complaint of continued weakness. She has been treated for PNA both outpatient and inpatient. She was recently discharged with dual PO antibiotics of which she reports compliance. Her weakness and cough continues. Upon arrival to the ED, her oxygenation was 88% and was put on 2 LNC, procalcitonin 0.11. Hospital Course: Patient was admitted to the hospital for dyspnea, hypoxia, bilateral groundglass pneumonia/suspected COVID-pneumonia, left pleural effusion, weakness. She tested positive for COVID on 11/28 but had been feeling unwell a few days before presenting to the hospital. She also reports that for the last year or 2 she h as been having dyspnea with exertion only able to go small distances without significant dyspnea. She had a CTA of her chest performed which was negative for PE, did show mild groundglass opacities within the lungs as well as a moderate to large left pleural effusion. She was treated during her hospitalization with Levaquin, steroids, diuretics, supplemental oxygen. She also had an echocardiogram with normal systolic and diastolic function/wall motion. She was still requiring nasal cannula at 1 to 2 L to maintain saturations greater than 90%. We discussed performing a diagnostic/therapeutic thoracentesis but she was very concerned about possible complications including infection and pneumothorax and declined thoracentesis at this time. Patient plans to follow-up with Dr. Montero in clinic in 1 to 2 weeks for repeat imaging/evaluation to determine if need for thoracentesis is still present. Dr. Montero believes patient has COPD, recommends prescription for Dulera inhaler as well as oral steroids prednisone for 1 week and close follow-up with him in 1 to 2 weeks in clinic. Home oxygen has been arranged and patient stable for discharge with close outpatient follow- up at this time. Problem list COVID-19 pneumonia Moderate to large left pleural effusion Acute on chronic respiratory failure with hypoxia secondary to above Weakness CAIO Hyperglycemia Bipolar disorder CVA Fibromyalgia Crohn's disease Hypothyroidism GERD General: AAO x3, NAD HEENT: Atraumatic, Normocephalic, PERRLA Neck: Supple, 2+ carotid pulse no bruit Respiratory: Clear to auscultation bilaterally, Normal air movement, on 2 LNC Cardiovascular: Normal pulses, NSR, Normal S1 S2, 1+ pitting edema bilateral lower extremities Capillary refill: <2 Seconds Gastrointestinal: Normal bowel sounds Musculoskeletal: No clubbing Integumentary: No rashes Neurological: Normal speech, Normal tone Vital Signs/Physical Exam: Temp Pulse Resp BP Pulse Ox 96.8 F 84 16 119/81 93 12/04/23 08:00 12/04/23 09:07 12/04/23 08:00 12/04/23 09:07 12/04/23 08:00 Laboratory Data at Discharge: WBC 9.90 thou/uL (4.3-10.9) 12/04/23 05:48 Hgb 10.6 g/dL (12.0-15.0) L 12/04/23 05:48 Hct 33.8 % (36.0-45.0) L 12/04/23 05:48 Plt Count 279 thou/uL (152-406) 12/04/23 05:48 Sodium 141 mEq/L (136-145) 12/04/23 07:26 Potassium 3.1 mEq/L (3.5-5.1) L D 12/04/23 07:26 BUN 15 mg/dL (7-18) 12/04/23 07:26 Creatinine 0.96 mg/dL (0.55-1.02) 12/04/23 07:26 Glucose 87 mg/dL (74-106) 12/04/23 07:26 Phosphorus 4.4 mg/dL (2.5-4.9) 12/04/23 07:26 Magnesium 2.1 mg/dL (1.6-2.4) 12/04/23 07:26 Total Bilirubin 0.5 mg/dL (0.2-1.0) 11/29/23 10:40 AST 35 U/L (15-37) 11/29/23 10:40 ALT 17 U/L (13-56) 11/29/23 10:40 Alkaline Phosphatase 198 U/L (45-117) H 11/29/23 10:40 Home Medications: Aspirin [Aspirin EC 325 MG] 1 tab PO DAILY 11/25/23 Atorvastatin Calcium [Lipitor] 1 tab PO BEDTIME 11/25/23 Cyanocobalamin (Vitamin B-12) [Vitamin B-12] 1 cap PO DAILY 11/25/23 Duloxetine [Cymbalta *] 1 tab PO DAILY 11/25/23 Gabapentin 1 cap PO DAILY 11/25/23 Krill/[place]-3/Dha/Epa/Lipids [[place]-3 Krill Oil 500 mg Sfgl] 1 cap PO DAILY 11/25/23 Levothyroxine [Synthroid*] 1 tab PO DAILY 11/25/23 Omeprazole [Prilosec] 1 cap PO [id number] 11/25/23 clonazePAM [Clonazepam] 1 tab PO DAILY 11/25/23 Mometasone/Formoterol [Dulera 200 Mcg/5 Mcg Inhaler] 2 puff IH BID #1 inhaler 12/04/23 predniSONE [Deltasone*] 10 mg PO BID 7 Days #14 tab 12/04/23 New Medications: predniSONE [Deltasone*] 10 mg PO BID 7 Days #14 tab Mometasone/Formoterol [Dulera 200 Mcg/5 Mcg Inhaler] 2 puff IH BID #1 inhaler Physician Discharge Instructions: Patient was admitted to the hospital for dyspnea, hypoxia, bilateral groundglass pneumonia/suspected COVID-pneumonia, left pleural effusion, weakness. She tested positive for COVID on 11/28 but had been feeling unwell a few days before presenting to the hospital. She also reports that for the last year or 2 she has been having dyspnea with exertion only able to go small distances without significant dyspnea. She had a CTA of her chest performed which was negative for PE, did show mild groundglass opacities within the lungs as well as a moderate to large left pleural effusion. She was treated during her hospitalization with Levaquin, steroids, diuretics, supplemental oxygen. She also had an echocardiogram with normal systolic and diastolic function/wall motion. She was still requiring nasal cannula at 1 to 2 L to maintain saturations greater than 90%. We discussed performing a diagnostic/therapeutic thoracentesis but she was very concerned about possible complications including infection and pneumothorax and declined thoracentesis at this time. Patient plans to follow-up with Dr. Montero in clinic in 1 to 2 weeks for repeat imaging/evaluation to determine if need for thoracentesis is still present. Dr. Montero believes patient has COPD, recommends prescription for Dulera inhaler as well as oral steroids prednisone for 1 week and close follow-up with him in 1 to 2 weeks in clinic. Home oxygen has been arranged and patient stable for discharge with close outpatient follow- up at this time. Home Oxygen: [facility] ph: [phone] [email or web address] Diet: AHA Activity: Fall precautions Followup: Rubén Montero MD [ACTIVE - CAN ADMIT] - 1-2 Weeks JAMIR JAY [Primary Care Provider] - 1 Week Time spent managing pt's care (in minutes): 37
== END 2023-12-04 12:10 | disposition home or self-care (01) | DRG 177 ==
LOC: ER 09:01 → ERHOLD 13:33 → 4TH 14:40
PROVIDERS: ADMIT Internal Medicine; ATTEND Hospitalist
DX: U07.1 COVID-19 (principal); J12.82 Pneumonia due to coronavirus disease 2019; J96.21 Acute and chronic respiratory failure with hypoxia; N17.9 Acute kidney failure, unspecified; K50.90 Crohn's disease, unspecified, without complications; J44.1 Chronic obstructive pulmonary disease with (acute) exacerbation; J44.0 Chronic obstructive pulmonary disease with (acute) lower respiratory infection; M79.7 Fibromyalgia; E03.9 Hypothyroidism, unspecified; F31.9 Bipolar disorder, unspecified; K21.9 Gastro-esophageal reflux disease without esophagitis; R73.9 Hyperglycemia, unspecified; Z98.51 Tubal ligation status; Z79.82 Long term (current) use of aspirin; Z86.73 Personal history of transient ischemic attack (TIA), and cerebral infarction without residual deficits; Z79.890 Hormone replacement therapy; Z79.899 Other long term (current) drug therapy; Z87.891 Personal history of nicotine dependence
CPT/HCPCS: 36415; 71045; 71046; 71275; 80048; 80053; 81001; 82306; 83036; 83605; 83735; 83880; 84100; 84145; 84484; 85025; 87040; 87070; 87081; 87205; 87804; 87807; 87811; 93005; 93306; 94010; 96360; 97116; 97161; 97530; 99285; J1644; J1650; J1940; J2185; J3475; J3535; J7040; J7512; J7613; Q9967

== ENCOUNTER 2023-12-30 21:28 | Inpatient (IN) | payer OTHER ==
--- OUTSIDE RECORDS SUMMARY | 2023-12-30 21:32 | XMS REPORT | Continuity of Care Document ---
Author Name Unknown Address [address] [facility] [address] [place] [address] [facility] thconnect Address [address] [facility] 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 Name Role Phone JUNO ROSE Primary Care Physician JAQUAN Weber Attending Clinician UnavailJaquan Mancini Attending Clinician [phone] Unknown, Attending Attending Clinician Unavailab [facility] Attending Clinician Un available Homar Mccarthy Attending Clinician [phone] HOMAR VARGHESE Attending Clinician Unavailable Provider[facility] Attending Clinician Unavailable UNKNOWN, ATTENDING Attending Clinician Unavailab chanel WHITNEY_GCBZW_Kadiyala_S Attending Clinician Paul An Attending Clinician [phone] Doctor Unassigned, [place] Attending Clinician U navailable DEVONTE_GCBZW_Kadiyala_S Admitting Clinician Unavaila ble Payers Payer Name Policy Type Policy Number Effective Date Expirati on Date Source [employer] MEDICARE ADV [id number] 1 00:00:00 Problems Condition Name Condition Details Condition Category Status Onset Date Resolution Date Last Treatment Date Treating Clinician Comments Source Vaginal odor Vaginal odor Disease Active 2017-04 00:00: 00 [facility] Vaginal itching Vaginal itching Disease Active 2017-04 00:00: 00 [facility] Allergies, Adverse Reactions, Alerts Allergy Name Allergy Type Status Severity Reaction(s) Onset Date Inactive Date Treating Clinician Comments Source Metronid azole Hcl Propensi ty to adverse reaction s Active Unknown - See comments 10-22 00:00: 00 [facility] METRONID AZOLE HCL DRUG INGREDI Active Unknown-Cmnt 10-22 00:00: 00 [facility] Social History Social Habit Start Date Stop Date Quantity Comments Source Sexual orientation U [facility] Exposure to SARS-CoV-2 (event) Not sure [facility] History of Social function 2018-12-26 00:00:00 2018-12-26 00:00:00 [facility] Tobacco use and exposure 2018-03-18 00:00:00 2018-03-18 00:00:00 Smokeless tobacco non-user [facility] Alcohol Comment 2018-03-18 00:00:00 2018-03-18 00:00:00 social [facility] History of tobacco use 2010-06-01 00:00:00 Cigarette Smoker [facility] Sex assigned at 1965 00:00:00 1965 00:00:00 [facility] Smoking Status Start Date Stop Date Source Ex-smoker 2018-03-18 00:00:00 2018-03-18 00:00:00 [facility] Medications Ordered Medication Name Filled Medication Name Start Date Stop Date Current Medication? Ordering Clinician Indication Dosage Frequency Signature (SIG) Comments Components Source potassium chloride (KCL-20 ORAL) 10-24 18:25: 25 Yes 2mg Take by mouth. [facility] aspirin 325 mg tablet 10-24 18:25: 25 Yes 325mg Take 1 tablet by mouth in the morning. [facility] Cholecalcif yusef, Vitamin D3, (VITAMIN D3) 5,000 unit tablet 10-24 18:25: 25 Yes 5000U Take 1 tablet by mouth in the morning. [facility] mesalamine (PENTASA) 500 mg CR capsule 10-24 18:25: 25 Yes 500mg Take 1 capsule by mouth 4 (four) times daily. [facility] DULoxetine (CYMBALTA) 60 mg capsule 10-24 18:25: 25 Yes 60mg Take 1 capsule by mouth in the morning. [facility] omega-3s-dh a-epa-fish oil (OMEGA 3) 350-400 mg Cap 10-24 18:25: 25 Yes 1{capsu le} Take 1 capsule by mouth daily. [facility] levothyroxi ne (SYNTHROID) 25 mcg tablet 10-24 18:25: 25 Yes 25ug Take 1 tablet by mouth every morning. [facility] omeprazole (PRILOSEC) 40 mg capsule 10-24 18:25: 25 Yes 40mg Take 1 capsule by mouth in the morning. [facility] methylPREDN ISolone (MEDROL, XIOMARA,) 4 mg tablets 10-24 00:00: 00 Yes [id number] Take by mouth SEE-INSTRU CTIONS. follow package directions [facility] azithromyci n 250 mg tablet 10-24 00:00: 00 Yes [id number] 2 tabs today; 1 tab daily for 4 days [facility] benzonatate 200 mg capsule 10-24 00:00: 00 11-04 04:59 :00 Yes [id number] 200mg Take 1 capsule by mouth 3 (three) times daily as needed for Cough for up to 10 days. [facility] albuterol 90 mcg/actuati on inhaler 10-24 00:00: 00 11-04 04:59 :00 Yes [id number] 2{puff} Inhale 2 Puffs every 6 (six) hours as needed for Wheezing or Shortness of Breath for up to 10 days. [facility] amoxicillin -clavulanat e (AUGMENTIN) 875-125 mg per tablet 10-24 00:00: 00 11-01 04:59 :00 Yes [id number] 1{tbl} Take 1 tablet by mouth in the morning and 1 tablet in the evening. Do all this for 7 days. [facility] iohexol (OMNIPAQUE 350 BULK-100 mL) injection 100 mL 2019-04 00:30: 00 02-24 00:00 :00 No 100mL 100 mL, Intravenou s, ONCE, 1 dose, Thu02/24/20 at 1830, Routine [facility] meclizine (TRAVEL-EAS E (MECLIZINE) ) tablet 25 mg 2019-04 00:00: 00 02-23 23:03 :00 No 25mg 25 mg, Oral, ONCE, 1 dose, Thu02/24/20 at 1800, JERARDO [facility] NaCl 0.9% (NS) bolus infusion 1,000 mL 2019-04 23:45: 00 02-24 01:50 :00 No 1000mL at 999 mL/hr, 1,000 mL, IV Infusion, ONCE, 1 dose, Thu02/24/20 at 1745, STAT [facility] benzonatate 100 mg capsule 7-08 00:00: 00 10-24 00:00 :00 No [id number] 100mg Take 1 capsule by mouth 3 (three) times daily as needed for Cough. [facility] erythromyci n 5 mg/gram (0.5 %) ophthalmic ointment 524 00:00: 00 Yes [id number] .5[in_u s] Place 0.5 Inches in both eyes 2 (two) times daily. Continue until you follow up with eye doctor. [facility] methylPREDN ISolone (MEDROL, XIOMARA,) 4 mg tablets 4-16 00:00: 00 10-24 00:00 :00 No [id number] Take by mouth SEE-INSTRU CTIONS. follow package directions [facility] ATORVASTATI N CALCIUM (LIPITOR ORAL) 2017-04 15:27: 38 Yes 40mg Take 40 mg by mouth daily. [facility] aspirin 325 mg tablet 2017-04 15:27: 38 Yes 325mg Take 325 mg by mouth daily. [facility] CLONAZEPAM ORAL 2017-04 15:27: 38 Yes 2mg Take 2 mg by mouth 2 (two) times daily as needed (anxiety). [facility] Cholecalcif yusef, Vitamin D3, (VITAMIN D3) 5,000 unit tablet 2017-04 15:27: 38 Yes 5000U Take 5,000 Units by mouth daily. [facility] mesalamine (PENTASA) 500 mg CR capsule 2017-04 15:27: 38 Yes 500mg Take 500 mg by mouth 4 (four) times daily. [facility] DULoxetine (CYMBALTA) 60 mg capsule 2017-04 15:27: 38 Yes 60mg Take 60 mg by mouth daily. [facility] omega-3s-dh a-epa-fish oil (OMEGA 3) 350-400 mg Cap 2017-04 15:27: 38 Yes 1{capsu le} Take 1 capsule by mouth daily. [facility] levothyroxi ne (SYNTHROID) 25 mcg tablet 2017-04 15:27: 38 Yes 25ug Take 25 mcg by mouth every morning. [facility] omeprazole (PRILOSEC) 40 mg capsule 2017-04 15:27: 38 Yes 40mg Take 40 mg by mouth daily. [facility] acetaminoph en with codeine (TYLENOL-CO DEINE #3 ORAL) 2017-04 15:27: 38 Yes Take by mouth. [facility] potassium chloride (KCL-20 ORAL) 2017-04 15:27: 38 Yes Take by mouth. [facility] potassium chloride (KCL-20 ORAL) 2017-04 09:27: 38 Yes 40mg Take by mouth. [facility] CLONAZEPAM ORAL 2017-04 09:27: 38 Yes 2mg Take 2 mg by mouth 2 (two) times daily as needed (anxiety). [facility] omega-3s-dh a-epa-fish oil (OMEGA 3) 350-400 mg Cap 2017-04 09:27: 38 Yes 1{capsu le} Take 1 capsule by mouth daily. [facility] clotrimazol e-betametha sone (LOTRISONE) cream 2017-04 00:00: 00 Yes Apply to area(s) 2 (two) times daily. [facility] clotrimazol e (GYNE-LOTRI MIN 7) 1 % vaginal cream 2017-04 2- 00:00: 00 Yes 1{appli cator} Insert 1 Applicator into vagina at bedtime. [facility] traMADOL (ULTRAM) 50 mg tablet 2015-04 0 00:00: 00 Yes 50mg Take 1 tablet by mouth every 6 (six) hours as needed for Pain (scale 7-10). [facility] Vital Signs Vital Name Observation Time Observation Value Comments S rand Systolic blood pressure 2023-10-25 23:20:00 114 mm[Hg] [facility] Diastolic blood pressure 2023-10-25 23:20:00 74 mm[Hg] [facility] Heart rate 2023-10-25 23:20:00 110 /min [facility] Body temperature 2023-10-25 23:20:00 36.22 Zee [facility] Body weight 2023-10-25 23:20:00 120.657 kg [facility] BMI 2023-10-25 23:20:00 39.28 kg/m2 [facility] Oxygen saturation in Arterial blood by Pulse oximetry 2023-10-25 23:20:00 95 /min [facility] Systolic blood pressure 2023-07-31 22:00:00 116 mm[Hg] [facility] Diastolic blood pressure 2023-07-31 22:00:00 84 mm[Hg] [facility] Heart rate 2023-07-31 22:00:00 87 /min [facility] Body temperature 2023-07-31 22:00:00 36.28 Zee [facility] Respiratory rate 2023-07-31 22:00:00 18 /min [facility] Body height 2023-07-31 22:00:00 175.3 cm [facility] Body weight 2023-07-31 22:00:00 121.791 kg [facility] BMI 2023-07-31 22:00:00 39.65 kg/m2 [facility] Oxygen saturation in Arterial blood by Pulse oximetry 2023-07-31 22:00:00 95 /min [facility] Systolic blood pressure 2023-07-31 21:25:00 116 mm[Hg] [facility] Diastolic blood pressure 2023-07-31 21:25:00 84 mm[Hg] [facility] Heart rate 2023-07-31 21:25:00 87 /min [facility] Body temperature 2023-07-31 21:25:00 36.28 Z[facility] Respiratory rate 2023-07-31 21:25:00 18 /min [facility] Body height 2023-07-31 21:25:00 175.3 cm [facility] Body weight 2023-07-31 21:25:00 121.927 kg [facility] BMI 2023-07-31 21:25:00 39.69 kg/m2 [facility] Oxygen saturation in Arterial blood by Pulse oximetry 2023-07-31 21:25:00 95 /min [facility] Systolic blood pressure 2020-02-25 01:32:00 113 mm[Hg] [facility] Diastolic blood pressure 2020-02-25 01:32:00 82 mm[Hg] [facility] Heart rate 2020-02-25 01:32:00 84 /min [facility] Respiratory rate 2020-02-25 01:32:00 21 /min [facility] Oxygen saturation in Arterial blood by Pulse oximetry 2020-02-25 01:32:00 97 /min [facility] Body temperature 2020-02-24 22:18:23 37.06 Zee [facility] Body weight 2020-02-24 22:18:23 133.811 kg [facility] BMI 2020-02-24 22:18:23 43.56 kg/m2 [facility] Procedures Procedure Date / Time Performed Performing Clinician Source POCT SARS-COV-2 ANTIGEN (BINAX NOW) 2023-10-25 23:54:00 Jaquan Back [facility] XR CHEST 2 VW 2023-10-25 23:53:00 Jaquan Back [facility] CT ANGIOGRAM HEAD 2020-02-25 00:14:59 [facility] 2020-02-25 00:14:59 Paul Marcum [facility] URINALYSIS 2020-02-25 00:01:00 Paul Marcum [facility] XR CHEST 2 VW 2020-02-24 23:21:34 Paul [facility]um [facility] HEAD WO CONTRAST 2020-02-24 23:16:00 Paul Marcum [facility] LIPASE 2020-02-24 23:01:00 Paul Marcum [facility] TROPONIN I 2020-02-24 23:01:00 Paul Marcum [facility] HEPATIC FUNCTION PANEL ([id number]) (ALB,T.PRO,BILI T,BU/BC,ALT,AST,ALK PHOS) 2020-02-24 23:01:00 Paul Marcum [facility] BASIC METABOLIC PANEL (NA, K, CL, CO2, GLUCOSE, BUN, CREATININE, CA) 2020-02-24 23:01:00 Paul Marcum [facility] CBC WITH DIFF 2020-02-24 23:01:00 [facility] PROTHROMBIN TIME / INR 2020-02-24 23:01:00 Ly Marcum [facility] ACTIVATED PARTIAL THRMPLAS YOLETTE 2020-02-24 23:01:00 Paul Marcum [facility] NOTICE OF PRIVACY PRACTICES 2020-02-24 22:07:24 Doctor Unassigned, [place] [facility] CONSENT/REFUSAL FOR DIAGNOSIS AND TREATMENT 2020-02-24 22:07:10 Doctor Unassigned, [place] [facility] Encounters Start Date/Time End Date/Time Encounter Type Admission Type Attending [facility] Facility Care Department Encounter ID Source 2021-02-02 07:00:13 Emergency [facility] [id number] [facility] 2023-10-25 18:41:11 2023-10-25 23:59:00 Outpatient R JAQUAN BACK [facility] [id number] [facility] 2023-10-25 18:41:11 2023-10-25 23:59:00 Hospital Encounter Jaquan Back [facility] 1.2.840.114 350.1.13.10 4.2.7.2.686 [id number] [facility] 2023-10-25 18:20:00 2023-10-25 19:12:35 Urgent Care Jaquan Back Unknown, Attending [facility] 1..840.114 350.1.13.10 4.2.7.2.686 [id number] [facility] 2023-07-31 17:00:00 2023-07-31 17:07:46 Nurse Visit Nurse, [facility] Unknown, [facility] 1.2.840.114 350.1.13.10 4.2.7.2.686 [id number] [facility] 2023-07-31 17:00:00 2023-07-31 17:00:00 Outpatient R HOMAR VARGHESE [facility] [id number] [facility] 2023-07-31 16:00:00 2023-07-31 16:20:00 Urgent Care Provider, [facility] Unknown, Attending [facility] 1..840.114 350.1.13.10 4.2.7.2.686 [id number] [facility] 2023-07-31 16:00:00 2023-07-31 16:00:00 Outpatient R UNKNOWN, ATTENDING [facility] [id number] [facility] 2023-02-01 00:00:00 2023-02-01 00:00:00 Outpatient GC_GCBZW_Ka diyala_S [facility] [id number] [facility] 2020-02-24 16:28:00 2020-02-24 19:52:00 Emergency Yordan Paul [facility] [id number] 350.1.13.10 4.2.7.2.686 [id number] [facility] 2020-02-24 00:00:00 2020-02-24 00:00:00 Orders Only Doctor Unassigned, [place] [facility] 1.2.840.114 350.1.13.10 4.2.7.2.686 [id number] [facility] Results Test Description Test Time Test Comments Results Resul t Comments Source XR CHEST 2 VW 2023-10-26 00:22:43 ORDERING PHYSICIAN: JAQUAN BACK. JAQUAN BACK CLINICAL HISTORY: Dyspnea. . TECHNIQUE: 2 views chest TECHNICAL QUALITY: Adequate COMPARISON: 02/24/2020 FINDINGS: Medial left lung base opacities concerning for pneumonia. Noeffusion or pneumothorax. [facility] [id number] 00:59:30No evidence for hemodynamically significant stenosis in [...] intracranial arterial occlusion or hemodynamicallysignificant stenosis.[facility] [id number] 00:59:30No evidence for hemodynamically significant stenosis in [...] intracranial arterial occlusion or hemodynamicallysignificant stenosis.RL: 4600 [facility] 2020-02-25 00:40:00* Test Item Value Reference Range Interpretation Comme nts APPEARANCE (test code = 4674433376) Clear Clear COLOR (test code = 2527810986) Yellow Yellow PH (test code = 9437784491) 4.8-8.0 SP GRAVITY (test code = 4852543211) 1.003-1.030 GLU U QUAL (test code = 1968030992) Normal Normal BLOOD (test code = 8411286473) Negative Negative KETONES (test code = 3470896266) Negative Negative PROTEIN (test code = 2887-8) Negative Negative UROBILIN (test code = 4953230494) Normal Normal BILIRUBIN (test code = 3714822689) Negative Negative NITRITE (test code = 2109912225) Negative Negative LEUK ETHAN (test code = 7744145170) Negative Negative RBC/HPF (test code = 5293479369) See_Comment [Automated Encap[employer] ge] The system which generated this result transmitted reference range: 0 - 3 HPF. The reference range was not used to interpret this result as normal/abnormal. WBC/HPF (test code = 2030159068) See_Comment [Automated Encap[employer] ge] The system which generated this result transmitted reference range: 0 - 5 HPF. The reference range was not used to interpret this result as normal/abnormal. BACTERIA (test code = 6235610438) Few Negative A MUCOUS (test code = 0803394250) Slight Negative LPF A SQ EPITH (test code = 6805538334) HPF Lab Interpretation (test code = 27428-0) Abnormal [facility] [id number] 23:47:00* Test Item Value Reference Range Interpretation Comme nts TROPONIN I (test code = 2524004769) <0.012 See_Comment [Automated message] The system which [...] biotin. ? Lab Interpretation (test code = 01236-1) Normal [facility] (NA, K, CL, CO2, GLUCOSE, BUN, CREATININE, CA)2020-02-24 23:35:00* Test Item Value Reference Range Interpretation Comme nts NA (test code = 3200253372) 139 mmol/L 135-145 K (test code = 3649934352) 3.9 mmol/L 3.5-5 CL (test code = 0236826787) 102 mmol/L 98-108 CO2 TOTAL (test code = 5154257671) 28 mmol/L 23-31 AGAP (test code = 8045095799) 2-16 BUN (test code = 8124913111) 19 mg/dL 7-23 GLUCOSE (test code = 7752466866) 122 mg/dL 70-110 H CREATININE (test code = 2577285617) 1.14 mg/dL 0.5-1.04 H CALCIUM (test code = 2551641286) 9.3 mg/dL 8.6-10.6 eGFR Calculation (Non-) (test code = 5456132606) mL/min/1.73m2 eGFR Calculation () (test code = 8012948791) mL/min/1.73m2 ALESHA (test code = ALESHA) Association [...] imaging tests). Lab Interpretation (test code = 07026-9) Abnormal [facility] (ALB, T.PRO, BILI T, BU/BC, ALT, AST, ALK PHOS)2020-02-24 23:35:00* Test Item Value Reference Range Interpretation Comme nts TOTAL BILI (test code = 8142589511) 1.0 mg/dL 0.1-1.1 BILI UNCON (test code = 6509867494) 0.8 mg/dL 0.1-1.1 BILI CONJ (test code = 9092452531) 0.0 mg/dL 0-0.3 T PROTEIN (test code = 7256554692) 7.8 g/dL 6.3-8.2 ALBUMIN (test code = 4722342919) 4.2 g/dL 3.5-5 ALK PHOS (test code = 3089580929) 171 U/L 34-122 H ALTv (test code = 1742-6) 30 U/L 5-35 AST(SGOT) (test code = 2651114508) 32 U/L 13-40 Lab Interpretation (test cod e = 58264-9) Abnormal [facility] HospitalLipase [id number] 23:35:00* Test Item Value Reference Range Interpretation Comme nts LIPASE (test code = 9314879132) 159 U/L 0-220 Lab Interpretation (test cod e = 32710-4) Normal [facility] HospitalChest 2 [id number] 23:27:47No acute cardiopulmonary process is seen. PROCEDURE: [...] aggressive osseous lesion.IMPRESSIONNo acute cardiopulmonary process is seen.[facility] W/O [id number] 23:27:02No acute intracranial abnormality.EXAM: CT HEAD WO [...] cells and paranasal air sinuses are clear. [facility], Radiant Results Inft User - 02/24/2020 5:28 [...] air sinuses are clear. IMPRESSIONNo acute intracranial abnormality.[facility] HospitalaPTT2020-11-20 23:19:00* Test Item Value Reference Range Interpretation Comme [facility] APTT Patient (test code = 3173-2) See_Comment [Automated message] The system which generated this result transmitted reference range: 23 - 38 Seconds. The reference range was not used to interpret this result as normal/abnormal. ALESHA (test code = ALESHA) The [facility] patient population mean normal value for aPTT is 30 seconds. Lab Interpretation (test code = 36991-5) Normal [facility] HospitalProthrombin Time (PT) / [id number] 23:17:00 * Test Item Value Reference Range Interpretation Comme [facility] PROTIME PATIENT (test code = 5964-2) See_Comment [Automated Encapsona ge] The system which generated this result transmitted reference range: 12.0 - 14.7 Seconds. The reference range was not used to interpret this result as normal/abnormal. INR (test code = 6301-6) Normal INR <1.1; Warfarin Therapeutic range 2.0 to 3.0 or 2.5 to 3.5, depending upon the indications. Lab Interpretation (test code = 62073-5) Normal [facility] HospitalCBC with [id number] 23:10:00* Test Item Value Reference Range Interpretation Comme [facility] WBC (test code = 6690-2) See_Comment [Automated messa ge] The system which generated this result transmitted reference range: 4.30 - 11.10 10*3/?L. The reference range was not used to interpret this result as normal/abnormal. RBC (test code = 789-8) See_Comment [Automated En[employer]a ge] The system which generated this result [...] 33.7 g/dL 31.6-35.1 RDW-SD (test code = 59533-4) 43.3 fL 39-49.9 RDW-CV (test code = 788-0) 13.4 % 12-15.5 PLT (test code = 777-3) See_Comment [Automated En[employer]a ge] The system which generated this result transmitted reference range: 166 - 358 10*3/?L. The reference range was not used to interpret this result as normal/abnormal. MPV (test code = 86968-2) 11.4 fL 9.5-12.9 NRBC/100 WBC (test code = 3066657438) See_Comment [Automated me ssage] The system which generated this result transmitted reference range: 0.0 - 10.0 /100 WBCs. The reference range was not used to interpret this result as normal/abnormal. NRBC x10^3 (test code = 0439245789) <0.01 See_Comment [Automated me ssage] The system which generated this result transmitted reference range: 10*3/?L. The reference range was not used to interpret this result as normal/abnormal. GRAN MAT (NEUT) % (test code = 770-8) 61.8 % IMM GRAN % (test code = 9455327416) 0.20 % LYMPH % (test code = 736-9) 28.2 % MONO % (test code = 5905-5) 5.3 % EOS % (test code = 713-8) 4.1 % BASO % (test code = 706-2) 0.4 % GRAN MAT x10^3(ANC) (test code = 5642711827) 5.72 10*3/uL 1.88-7.09 IMM GRAN x10^3 (test code = 4162297227) <0.03 0-0.06 LYMPH x10^3 (test code = 731-0) 2.61 10*3/uL 1.32-3.29 MONO x10^3 (test code = 742-7) 0.49 10*3/uL 0.33-0.92 EOS x10^3 (test code = 711-2) 0.38 10*3/uL 0.03-0.39 BASO x10^3 (test code = 704-7) 0.04 10*3/uL 0.01-0.07 [facility]"
[2023-12-30 22:45] LABS: Absolute Basophils 0.2 K/uL (0-0.5); Absolute Eosinophils 0.3 K/uL (0-0.5); Absolute Lymphocytes (CBC) 2.9 K/uL (0.7-4.9); Absolute Monocytes 0.6 K/uL (0.1-1.3); Absolute Neutrophil 9.2 K/uL (1.8-8.0); Basophils % 1.4 % (0-1.3); Eosinophils % 2.2 % (0-4.4); Hematocrit 37.4 % (36.0-45.0); Hemoglobin 12.1 g/dL (12.0-15.0); Lymphocytes % 21.7 % (15.3-44.8); MCH 26.3 pg (27.0-35.0); MCHC 32.4 g/dL (32.0-36.0); MCV 81.2 fL (80-100); MPV 9.1 fL (7.6-11.3); Monocytes % 4.5 % (3.3-12.3); Neutrophils % 70.2 % (41.7-73.7); Nucleated Red Blood Cells % 0.1 % (0-0); Platelets 444 thou/uL (152-406); RBC Red Blood Cell Count 4.61 M/uL (3.86-4.86); Red Cell Distribution Width 16.7 % (12.1-15.2)
--- NOTE | 2023-12-30 22:46 | RAD REPORT ---
EXAMINATION: ONE VIEW CHEST XR CLINICAL INDICATION: Female, 58 years old.,SOB TECHNIQUE: Frontal chest projection is submitted. Examination is limited by patient positioning and t echnique. COMPARISON: 12/21/2023 FINDINGS: The right lung is well inflated and clear. No pneumothorax. Progressive layering left-sided effusion , now large in volume. Mild right midline shift again seen. The heart is normal in size. IMPRESSION: Progressive left pleural effusion as above.
[2023-12-30 22:58] LABS: PT Prothrombin Time 13.3 SECONDS (9.4-12.5); Protime INR 1.19
[2023-12-30 23:08] LABS: Albumin 1.8 g/dL (3.4-5.0); Albumin/Globulin Ratio 0.3 (1.1-1.8); Anion Gap 4.3 mEq/L (5.0-15.0); Bilirubin Direct 0.2 mg/dL (0-0.2); Bilirubin Indirect, Calculated 0.6 mg/dL (0.2-0.8); Bilirubin Total 0.8 mg/dL (0.2-1.0); Globulin 6.1 g/dL (2.3-3.5); Magnesium 1.1 mg/dL (1.6-2.4); Potassium 3.3 mEq/L (3.5-5.1); Protein, Total 7.9 g/dL (6.4-8.2); Troponin High Sensitivity 3.9 pg/mL (<58.9)
--- NOTE | 2023-12-31 00:14 | ER ---
Nurse's Notes [facility] Name: Oxana Talavera Age: 58 yrs Sex: Female : 1965 Arrival Date: 12/30/2023 Time: 21:28 Bed 19 Private MD: Diagnosis: Pleural effusion, not elsewhere classified;Shortness of breath Presentation: 12/29 21:42 Chief complaint: Patient states: Cough and shortness of breath onset 1 month ago. pt cm10 states that it has not gotten any better. Pt on 2L via NC. Pt states that she is having back pain and feels like she has fluid on her lungs. Coronavirus screen: Client denies travel out of the [place] in the last 14 days. Ebola Screen: Patient denies travel to an Ebola-affected area in the 21 days before illness onset. No symptoms or risks identified at this time. Initial Sepsis Screen: Does the patient meet any 2 criteria? HR > 90 bpm. Does the patient have a suspected source of infection? No. Patient's initial sepsis screen is negative. Risk Assessment: Do you want to hurt yourself or someone else? Patient reports no desire to harm self or others. Onset of symptoms was December 30, 2023. 21:42 Method Of Arrival: Ambulatory cm10 21:42 Acuity: GALINA 2 cm10 Triage Assessment: 21:48 General: Appears in no apparent distress. comfortable, Behavior is calm, cooperative. cm10 Neuro: No deficits noted. Level of Consciousness is awake, alert, obeys commands, Oriented to person, place, time, situation, Appropriate for age. Historical: - Allergies: 21:43 Flagyl; cm10 21:43 METRONIDAZOLE; cm10 - Home Meds: 21:43 levothyroxine 75 mcg oral tablet daily [Active]; duloxetine 60 mg oral capsule,delayed cm10 release (e.c.) daily [Active]; aspirin 325 mg Oral tablet daily [Active]; omeprazole 40 mg Oral capsule,delayed release (e.c.) daily [Active]; gabapentin 600 mg oral tablet 1 tab 2 times per day [Active]; atorvastatin 40 mg oral tablet daily [Active]; Trelegy Ellipta 200-62.5-25 mcg inhalation Blister, With Inhalation Device [Active]; hydroxyzine HCl 25 mg Oral tablet As needed [Active]; Tylenol #3 Oral as needed [Active]; - PMHx: 21:43 Bipolar disorder; Crohn's Disease; CVA; Fibromyalgia; GERD; Hypothyroidism; stroke; cm10 21:48 O2 dependent; cm10 - PSHx: 21:43 brain biopsy; Total abdominal hysterectomy; cm10 - Immunization history:: Adult Immunizations up to date. - Infectious Disease History:: Denies. - Social history:: Smoking status: Patient/guardian denies using tobacco, the patient reports quitting approximately 13 years ago. Screenin:42 [facility] ED Fall Risk Assessment (Adult) History of falling in the last 3 months, bm8 including since admission No falls in past 3 months (0 pts) Confusion or Disorientation No (0 pts) Intoxicated or Sedated No (0 pts) Impaired Gait Yes (1 pt) Mobility Assist Device Used Yes (1 pt) Altered Elimination No (0 pt) Score/Fall Risk Level 3 or more points = High Risk Oriented to surroundings, Maintained a safe environment, Educated pt \T\ family on fall prevention, incl call for assistance when getting out of bed, Assessed \T\ reinforced patient's understanding of fall precautions, Hourly rounding (assess needs \T\ fall precautionary measures) done, Used ambulatory aids as needed (educated on \T\ assisted with), Used gait belt as appropriate Implemented a Fall Risk Plan of Care. Abuse screen: Denies threats or abuse. Nutritional screening: No deficits noted. Tuberculosis screening: No symptoms or risk factors identified. Assessment: 22:42 Reassessment: Patient appears in no apparent distress at this time. Patient and/or bm8 family updated on plan of care and expected duration. Pain level reassessed. Patient is alert, oriented x 3, equal unlabored respirations, skin warm/dry/pink. General: Appears in no apparent distress. comfortable, Behavior is calm, cooperative, appropriate for age. Pain: Denies pain. Neuro: No deficits noted. Level of Consciousness is awake, alert, obeys commands, Oriented to person, place, time, situation, Appropriate for age. Cardiovascular: Denies chest pain, Heart tones S1 S2 present Capillary refill < 3 seconds Patient's skin is warm and dry. Rhythm is sinus tachycardia. Respiratory: Reports shortness of breath at rest cough that is non-productive, air hunger Airway is patent Trachea midline Respiratory effort is even, labored, Respiratory pattern is regular, symmetrical, Breath sounds are diminished bilaterally. the patient has moderate shortness of breath. GI: No signs and/or symptoms were reported involving the gastrointestinal system. : No signs and/or symptoms were reported regarding the genitourinary system. EENT: No signs and/or symptoms were reported regarding the EENT system. Derm: No signs and/or symptoms reported regarding the dermatologic system. Musculoskeletal: No signs and/or symptoms reported regarding the musculoskeletal system. 12/30 00:35 Reassessment: Patient appears in no apparent distress at this time. Patient and/or bm8 family updated on plan of care and expected duration. Pain level reassessed. Patient is alert, oriented x 3, equal unlabored respirations, skin warm/dry/pink. Patient states feeling better. Patient states symptoms have improved. Vital Signs: 12/29 21:42 BP 103 / 80; Pulse 116; Resp 19; Temp 97.8(O); Pulse Ox 93% on 2 lpm NC; Weight 109.32 cm10 kg; Height 5 ft. 9 in. ; Pain 8/10; 22:42 BP 112 / 63; Pulse 107; Resp 28; Temp 97.8; Pulse Ox 93% on 2 lpm NC; Pain 0/10; bm8 12/30 00:35 BP 123 / 86; Pulse 107; Resp 26; Temp 97.8; Pulse Ox 92% on 2 lpm NC; Pain 0/10; bm8 12/29 21:42 Body Mass Index 35.59 (109.32 kg, 175.26 cm) cm10 12/29 21:42 Pain Scale: Adult cm10 22:42 Pain Scale: Adult bm8 12/30 00:35 Pain Scale: Adult bm8 Prasanth Coma Score: 12/29 22:42 Eye Response: spontaneous(4). Motor Response: obeys commands(6). Verbal Response: bm8 oriented(5). Total: 15. 12/30 00:35 Eye Response: spontaneous(4). Motor Response: obeys commands(6). Verbal Response: bm8 oriented(5). Total: 15. ED Course: 12/29 20:35 No provider procedures requiring assistance completed. Initial lab(s) drawn, by siddhartha rubi sent to lab. EKG done, by ED staff, reviewed by Ronn Marinas WEDDING PHOTOGRAPHER. 20:35 Inserted saline lock: 20 gauge in right forearm, using aseptic technique. Blood bm8 collected. Flushed with 10 mL NS. Oxygen administration via nasal cannula \T\ 2L/min Response to oxygen therapy: symptoms improved. 21:32 Patient arrived in ED. jj6 21:43 Triage completed. cm10 21:48 Arm band placed on Patient placed in an exam room, on a stretcher. cm10 21:50 Ronn Diaz, OFE is PHCP. pm1 21:50 Jon Everett MD is Attending Physician. pm1 22:13 Gilmer Jones, RN is Primary Nurse. bm8 22:24 XRAY Chest (1 view) In Process Unspecified. EDMS 22:42 Patient has correct armband on for positive identification. Placed in gown. Bed in low bm8 position. Call light in reach. Side rails up X 1. Adult w/ patient. Client placed on continuous cardiac and pulse oximetry monitoring. NIBP monitoring applied. front desk monitor on. Pulse ox on. NIBP on. Door closed. Noise minimized. Pillow given. Verbal reassurance given. Head of bed elevated. 12/30 00:13 Raheem Garcia is Hospitalizing Provider. pm1 00:35 Provided Education on: need for admission. bm8 00:35 Patient admitted, IV remains in place. bm8 11:42 142 CM met with Mrs Pereyra and her Will at the bedside in the ED exam room. ane Patient identified by name and . Demographic sheet confirmed and changes sent to appropriate personnel. Mrs. Talavera states she lives in a single story home with her . Patient reports that prior to admission, she performs ADLs independently and without physical limitations. She reports use of portable oxygen at 2 L at all times; she also has an oxygen concentrator, walker when ambulating long distances, and a shower bench. No HH, or other medical services at this time. Her preferred plan is to return home upon discharge and Will states he will be her transportation home. No MPOA in place, and is requested. CM team will continue to follow and coordinate care during this hospital stay. 1209 IMM delivered and signed. 1303 MPOA signed and completed. 18:03 Signed and completed MPOA scanned into EMR in [employer]. 1804 IMM scanned into EMR at [facility] 1804. Administered Medications: 00:49 Drug: Magnesium Sulfate IVPB 1 grams IVPB once over 1 hrs Route: IVPB; Infused Over: 1 bm8 hrs; Site: right forearm; 02:23 Follow up: Response: No adverse reaction; IV Status: Completed infusion; IV Intake: al5 100ml 02:23 Drug: Cefepime IVPB 1 grams IVPB at 200 ml/hr once over 30 mins; (mix in NS 100 mL) al5 Route: IVPB; Rate: 200 ml/hr; Infused Over: 30 mins; Site: right forearm; 03:21 Follow up: Response: No adverse reaction; IV Status: Completed infusion; IV Intake: al5 100ml 03:22 Drug: vancoMYCIN IVPB 1 grams IVPB once over 2 hrs Route: IVPB; Infused Over: 2 hrs; al5 Site: right forearm; 04:52 Follow up: IV Status: Infusion continued upon admission al5 04:53 Follow up: Response: No adverse reaction al5 Medication: 12/29 22:42 VIS not applicable for this client. bm8 Intake: 12/30 02:23 IV: 100ml; Total: 100ml. al5 03:21 IV: 100ml; Total: 200ml. al5 Outcome: 00:14 Decision to Hospitalize by Provider. pm1 00:35 Admitted to ER Hold. Please see [facility] for further documentation. bm8 00:35 Condition: stable 00:35 Instructed on the need for admit, 13:19 Patient left the ED. bp Signatures: Dispatcher [employer] EDMS Ronn Diaz, OFE WEDDING PHOTOGRAPHER pm1 Andreas French RN RN Aria Sheets6 Tika Britton RN RN cm10 Gilmer Jones RN RN bm8 Aziza Gross RN RN al5 Tahira Le RN RN ane
--- NOTE | 2023-12-31 00:14 | EDPHYS ---
Physician Documentation [facility] Name: Oxana Talavera Age: 58 yrs Sex: Female : 1965 Arrival Date: 12/30/2023 Time: 21:28 Bed 19 Private MD: ED Physician Jon Everett HPI: 12/29 23:49 This 58 yrs old Female presents to ER via Ambulatory with complaints of Shortness Of pm1 Breath, Cough. 23:49 The patient has shortness of breath at rest. Onset: The symptoms/episode began/occurred pm1 2 month(s) ago. Duration: The symptoms are continuous, and are steadily getting worse, Patient has thoracentesis planned for next Thursday with Dr Montero but she does not feel that she can wait until then. The patient's shortness of breath is aggravated by exertion. Associated signs and symptoms: Pertinent positives: non-productive cough, Pertinent negatives: chest pain, fever. Severity of symptoms: in the emergency department the symptoms are worse. Historical: - Allergies: 21:43 Flagyl; cm10 21:43 METRONIDAZOLE; cm10 - Home Meds: 21:43 levothyroxine 75 mcg oral tablet daily [Active]; duloxetine 60 mg oral capsule,delayed cm10 release (e.c.) daily [Active]; aspirin 325 mg Oral tablet daily [Active]; omeprazole 40 mg Oral capsule,delayed release (e.c.) daily [Active]; gabapentin 600 mg oral tablet 1 tab 2 times per day [Active]; atorvastatin 40 mg oral tablet daily [Active]; Trelegy Ellipta 200-62.5-25 mcg inhalation Blister, With Inhalation Device [Active]; hydroxyzine HCl 25 mg Oral tablet As needed [Active]; Tylenol #3 Oral as needed [Active]; - PMHx: 21:43 Bipolar disorder; Crohn's Disease; CVA; Fibromyalgia; GERD; Hypothyroidism; stroke; cm10 21:48 O2 dependent; cm10 - PSHx: 21:43 brain biopsy; Total abdominal hysterectomy; cm10 - Immunization history:: Adult Immunizations up to date. - Infectious Disease History:: Denies. - Social history:: Smoking status: Patient/guardian denies using tobacco, the patient reports quitting approximately 13 years ago. ROS: 23:49 Constitutional: Negative for fever, chills, and weight loss, pm1 23:49 Abdomen/GI: Negative for abdominal pain, nausea, vomiting, diarrhea, and constipation, Back: Negative for injury and pain, MS/Extremity: Negative for injury and deformity, Skin: Negative for injury, rash, and discoloration, Neuro: Negative for headache, weakness, numbness, tingling, and seizure, 23:49 Respiratory: Positive for cough, shortness of breath, 23:49 All other systems are negative, Exam: 23:49 Constitutional: This is a well developed, well nourished patient who is awake, alert, pm1 and in no acute distress. 23:49 Back: No spinal tenderness. No costovertebral tenderness. Full range of motion. Skin: Warm, dry with normal turgor. Normal color with no rashes, no lesions, and no evidence of cellulitis. MS/ Extremity: Pulses equal, no cyanosis. Neurovascular intact. Full, normal range of motion. 23:49 Respiratory: the patient does not display signs of respiratory distress, Breath sounds: decreased breath sounds, are heard in the left posterior lower lobe, 23:49 Neuro: Exam negative for acute changes, Orientation: is normal, Mentation: is normal, Motor: is normal, moves all fours, 12/30 00:51 ECG was reviewed by the Attending Physician. pm1 Vital Signs: 12/29 21:42 BP 103 / 80; Pulse 116; Resp 19; Temp 97.8(O); Pulse Ox 93% on 2 lpm NC; Weight 109.32 cm10 kg; Height 5 ft. 9 in. ; Pain 8/10; 22:42 BP 112 / 63; Pulse 107; Resp 28; Temp 97.8; Pulse Ox 93% on 2 lpm NC; Pain 0/10; bm8 12/30 00:35 BP 123 / 86; Pulse 107; Resp 26; Temp 97.8; Pulse Ox 92% on 2 lpm NC; Pain 0/10; bm8 12/29 21:42 Body Mass Index 35.59 (109.32 kg, 175.26 cm) cm10 12/29 21:42 Pain Scale: Adult cm10 22:42 Pain Scale: Adult bm8 12/30 00:35 Pain Scale: Adult bm8 Prasanth Coma Score: 12/29 22:42 Eye Response: spontaneous(4). Motor Response: obeys commands(6). Verbal Response: bm8 oriented(5). Total: 15. 12/30 00:35 Eye Response: spontaneous(4). Motor Response: obeys commands(6). Verbal Response: bm8 oriented(5). Total: 15. MDM: 12/29 21:50 Patient medically screened. pm1 23:55 Differential diagnosis: CHF exacerbation, Chronic Obstructive Pulmonary Disease pm1 pneumonia, pulmonary edema, Pleural effusion. 23:55 Data reviewed: vital signs. pm1 23:55 Consideration of Admission/Observation Patient was admitted/placed on observation. pm1 23:55 Care significantly affected by the following chronic conditions: Chronic Obstructive pm1 Pulmonary Disease, crohn's disease, bipolar disorder, CVA, fibromyalgia. Counseling: I had a detailed discussion with the patient and/or guardian regarding the historical points, exam findings, and any diagnostic results supporting the discharge/admit diagnosis, lab results, radiology results, the need for further work-up and treatment in the hospital. 12/30 00:12 Management of patient was discussed with the following: Hospitalist: Dr Garcia. Will pm1 see the patient in the ER. 12/29 22:01 Order name: Basic Metabolic Panel; Complete Time: 23:44 pm1 12/29 22:01 Order name: CBC with Diff; Complete Time: 23:00 [facility] 12/29 22:01 Order name: LFT's; Complete Time: 23:44 pm1 12/29 22:01 Order name: Magnesium; Complete Time: 23:44 pm 12/29 22:01 Order name: NT PRO-BNP; Complete Time: 23:44 [facility] 12/29 22:01 Order name: PT-INR; Complete Time: 23:00 pm 12/29 22:01 Order name: Troponin HS; Complete Time: 23:44 pm1 12/30 00:11 Order name: Blood Culture Adult (2) pm1 12/30 01:01 Order name: ALBUMIN, PLEURAL FLUID [facility] 12/30 01:01 Order name: AMYLASE, PLEURAL FLUID [facility] 12/30 01:01 Order name: Body Fluid Cell Count [facility] 12/30 01:01 Order name: CHOLESTEROL, PLEURAL FLUID [facility] 12/30 01:01 Order name: GLUCOSE, PLEURAL FLUID [facility] 12/30 01:01 Order name: LD, PLEURAL FLUID [facility] 12/30 01:01 Order name: TOTAL PROTEIN, PLEURAL FLUID EDMS 12/30 01:01 Order name: TRIGLYCERIDE, PLEURAL FLUID EDMS 12/30 01:01 Order name: Urinalysis w/ reflexes EDMS 12/30 01:01 Order name: Basic Metabolic Panel EDMS 12/30 01:01 Order name: Basic Metabolic Panel EDMS 12/30 01:01 Order name: CBC with Automated Diff EDMS 12/30 01:01 Order name: CBC with Automated Diff EDMS 12/30 01:01 Order name: Magnesium EDMS 12/30 01:01 Order name: Magnesium EDMS 12/30 01:01 Order name: Phosphorus EDMS 12/30 01:01 Order name: Phosphorus EDMS 12/30 01:01 Order name: Body Fluid Culture EDMS 12/30 06:19 Order name: Urinalysis w/ reflexes EDMS 12/30 08:15 Order name: CBC with Automated Diff EDMS 12/30 08:28 Order name: Basic Metabolic Panel EDMS 12/30 08:28 Order name: Magnesium EDMS 12/29 22:01 Order name: XRAY Chest (1 view); Complete Time: 22:55 pm12/30 01:02 Order name: Thoracentesis w/ US Guide EDMS 12/29 22:01 Order name: EKG; Complete Time: 22:01 pm12/29 22:01 Order name: Cardiac monitoring; Complete Time: 22:42 pm12/29 22:01 Order name: EKG - Nurse/Tech; Complete Time: 22:42 pm12/29 22:01 Order name: IV Saline Lock; Complete Time: 22:42 pm12/29 22:01 Order name: Labs collected and sent; Complete Time: 22:42 pm12/29 22:01 Order name: O2 Per Protocol; Complete Time: 22:42 pm12/29 22:01 Order name: O2 Sat Monitoring; Complete Time: 22:42 pm1 EC:51 Rate is 110 beats/min. Rhythm is regular, Sinus tachycardia with No ectopy. QRS [place] is pm1 Normal. ME interval is normal. QRS interval is normal. QT interval is normal. No Q waves. T waves are Normal. No ST changes noted. Clinical impression: Sinus tachycardia. Administered Medications: 00:49 Drug: Magnesium Sulfate IVPB 1 grams IVPB once over 1 hrs Route: IVPB; Infused Over: 1 bm8 hrs; Site: right forearm; 02:23 Follow up: Response: No adverse reaction; IV Status: Completed infusion; IV Intake: al5 100ml 02:23 Drug: Cefepime IVPB 1 grams IVPB at 200 ml/hr once over 30 mins; (mix in NS 100 mL) al5 Route: IVPB; Rate: 200 ml/hr; Infused Over: 30 mins; Site: right forearm; 03:21 Follow up: Response: No adverse reaction; IV Status: Completed infusion; IV Intake: al5 100ml 03:22 Drug: vancoMYCIN IVPB 1 grams IVPB once over 2 hrs Route: IVPB; Infused Over: 2 hrs; al5 Site: right forearm; 04:52 Follow up: IV Status: Infusion continued upon admission al5 04:53 Follow up: Response: No adverse reaction al5 Disposition: 23:51 Co-signature as Attending Physician, Jon Everett MD I agree with the assessment sp4 and plan of care. I reviewed the patient's care provided by the Advanced Practice Provider and agree with the diagnosis and treatment plan. Disposition Summary: 12/31/23 00:14 Hospitalization Ordered Notes: Hospitalization Status: Inpatient Admission pm1 Provider: Raheem Garcia pm1 Condition: Stable pm1 Problem: new pm1 Symptoms: have improved pm1 Bed/Room Type: Standard pm1 Location: Telemetry/MedSurg (Inpatient)(12/31/23 12:05) bd Room Assignment: 216(12/31/23 12:05) bd Diagnosis - Pleural effusion, not elsewhere classified pm1 - Shortness of breath pm1 Forms: - Medication Reconciliation Form pm1 - SBAR form pm1 - Leadership Thank You Letter pm1 Signatures: Dispatcher [employer] EDMS Marisa Boles Patrick, OFE BUILDING CONTRACTOR pm1 Jon Everett MD MD sp4 Tika Britton RN RN cm10 Samantha Cantrell kmf Gilmer Jones RN RN bm8 Aziza Gross RN RN al5 Corrections: (The following items were deleted from the chart) 00:54 00:14 Telemetry/MedSurg (Inpatient) pm1 kmf 00:54 00:14 pm1 kmf 12:05 00:54 [facility] ER HOLD kmf bd 12:05 00:54 ERHOLD- kmf bd
--- NOTE | 2023-12-31 00:22 | P.HP ---
Certification for Inpatient Patient admitted to: Observation With expected LOS: <2 Midnights Practitioner: I am a practitioner with admitting privileges, knowledge of patient current condition, hospital course, and medical plan of care. Services: Services provided to patient in accordance with Admission requirements found in Title 42 Section 412.3 of the Code of Federal Regulations Patient History Date of Service: 12/31/23 Reason for admission: Shortness of breath History of Present Illness: She is 1-year-old morbidly obese woman with suspected COPD, recently hospitalized and noted to have left pleural effusion presenting to the emergency department with a complaint of progressive shortness of breath since discharge from hospital. She uses 2 L of oxygen by nasal cannula at home. Patient was offered thoracentesis during her previous admission about 3 weeks ago but she declined. Patient is scheduled for thoracentesis next week but states she cannot wait till next week. Chest x-ray done in the emergency department shows large pleural effusion on the left, pleural effusion significantly increased compared to previous images. Blood work showed mild leukocytosis and hyponatremia. Previous echocardiogram was unremarkable with normal EF. Patient is admitted for further management. Allergies metronidazole [From Flagyl] Allergy (Verified 12/09/23 15:01) Anaphylaxis Home Medications: Aspirin [Aspirin EC 325 MG] 1 tab PO DAILY 11/25/23 Atorvastatin Calcium [Lipitor] 1 tab PO BEDTIME 11/25/23 Cyanocobalamin (Vitamin B-12) [Vitamin B-12] 1 cap PO DAILY 11/25/23 Duloxetine [Cymbalta *] 1 tab PO DAILY 11/25/23 Gabapentin 1 cap PO DAILY 11/25/23 Krill/[place]-3/Dha/Epa/Lipids [[place]-3 Krill Oil 500 mg Sfgl] 1 cap PO DAILY 11/25/23 Levothyroxine [Synthroid*] 1 tab PO DAILY 11/25/23 Omeprazole [Prilosec] 1 cap PO [id number] 11/25/23 clonazePAM [Clonazepam] 1 tab PO DAILY 11/25/23 Mometasone/Formoterol [Dulera 200 Mcg/5 Mcg Inhaler] 2 puff IH BID #1 inhaler 12/04/23 predniSONE [Deltasone*] 10 mg PO BID 7 Days #14 tab 12/04/23 - Past Medical/Surgical History Diabetic: No -: Hypertension -: strokes -: Bipolar -: pneumonia -: Fibromalgia, -: arthitis -: HYpothyridism -: GERD -: Crohn's disease -: [place] ligition -: partial hysterectomy -: brain biopsy - Family History Father -: Cancer (Prostate) Mother -: Cancer (Pancreatic.) - Social History Alcohol use: No CD- Drugs: No Caffeine use: No Review of Systems Other: Patient denied any fever or chills. She denied any chest pain. She denied any palpitation. She denied any nausea or vomiting. Except as documented, all other systems reviewed and negative. Physical Examination - Studies Laboratory Data (last 24 hrs) 12/30/23 12/30/23 12/30/23 22:35 22:35 22:35 WBC 13.20 H Hgb 12.1 Hct 37.4 Plt Count 444 H PT 13.3 H INR 1.19 Sodium 134 L Potassium 3.3 L BUN 25 H Creatinine 0.98 Glucose 111 H Magnesium 1.1 L Total Bilirubin 0.8 AST 34 ALT 39 Alkaline Phosphatase 225 H Assessment and Plan - Problems (Diagnosis) (1) Pleural effusion, left Current Visit: Yes Status: Acute (2) COPD (chronic obstructive pulmonary disease) Current Visit: Yes Status: Acute (3) Hyponatremia Current Visit: Yes Status: Acute (4) Hypothyroidism Current Visit: Yes Status: Acute - Plan Left pleural effusion Worsening left pleural effusion of unknown etiology. Place patient in observation. US guided thoracentesis ordered. Pleural fluid studies-cell count, culture and biochemistry. Empiric antibiotics. Repeat chest CT after thoracentesis to evaluate for infiltrate or mass. COPD Without acute exacerbation Continue home bronchodilators. Hyponatremia Mild hyponatremia. Monitor BMP Hypothyroidism Check TSH Adjust home dose Synthroid based on TSH result. DVT prophylaxis: SCD for now pending thoracentesis. Advanced directive: Full code. - Advance Directives Does patient have a Living Will: No Does patient have a Durable POA for Healthcare: No
[2023-12-31] MEDS ORDERED: VANCOMYCIN 1 GM/VIAL ONE (00:38)
[2023-12-31] MEDS ORDERED: NA CHLORIDE 0.9% 250 ML ONE (00:38)
[2023-12-31] MEDS ORDERED: NA CHLORIDE 0.9% 100 ML ONE (00:38)
[2023-12-31] MEDS ORDERED: MAGNESIUM SULFATE 1 gm IVPB 1 GM/100 ML BAG IV ONE (00:39)
[2023-12-31] MEDS ORDERED: CEFEPIME 1 GM/VIAL ONE (00:39)
[2023-12-31] MEDS ORDERED: ACETAMINOPHEN 500 MG TAB PO PRN (00:50)
[2023-12-31] MEDS ORDERED: ALBUTEROL 2.5 MG/3 ML NEB SOL NEB PRN (00:50)
[2023-12-31] MEDS ORDERED: ONDANSETRON 4 MG/2 ML VIAL IV PRN (00:50)
[2023-12-31] MEDS ORDERED: PANTOPRAZOLE 40MG TABLET PO ONE (05:57)
[2023-12-31] MEDS: PANTOPRAZOLE 40MG TABLET PO SCH (05:59)
[2023-12-31] MEDS ORDERED: HOME MED 1 EA UNK (Omeprazole [Prilosec] 40 MG Capsule.Dr) PO SCH (06:00)
[2023-12-31 06:20] LABS: Renal Epithelial <5 /HPF (None Seen); Urine Bacteria <20 /HPF (<20); Urine Culture Reflex Order REFLEXED; Urine Microscopic Reflex YN ORDER UMIC; Urine Mucus 4+ /HPF (None Seen); Urine RBC >50 /HPF (None Seen); Urine WBC 20-50 /HPF (<5)
[2023-12-31 06:21] LABS: Specific Gravity > 1.030 (1.005-1.030); Urine Clarity Clear (Clear); Urine Color Yellow (Yellow); Urine Glucose Negative (Negative)
[2023-12-31 06:22] LABS: Urine Bilirubin NEGATIVE (Negative); Urine Blood Negative (Negative); Urine Ketones Trace (Negative); Urine Nitrite NEGATIVE (Negative); Urine Protein 1+ (Negative); Urine Urobilinogen 0.2 (Normal)
[2023-12-31] MEDS: LEVOTHYROXINE SOD 0.075 MG TAB PO SCH (07:30)
[2023-12-31 08:14] LABS: Absolute Basophils 0.2 K/uL (0-0.5); Absolute Eosinophils 0.2 K/uL (0-0.5); Absolute Lymphocytes (CBC) 2.2 K/uL (0.7-4.9); Absolute Monocytes 0.9 K/uL (0.1-1.3); Absolute Neutrophil 9.1 K/uL (1.8-8.0); Basophils % 1.2 % (0-1.3); Eosinophils % 1.3 % (0-4.4); Hematocrit 35.5 % (36.0-45.0); Hemoglobin 11.3 g/dL (12.0-15.0); Lymphocytes % 17.9 % (15.3-44.8); MCH 25.8 pg (27.0-35.0); MCHC 31.8 g/dL (32.0-36.0); MCV 81.2 fL (80-100); MPV 9.6 fL (7.6-11.3); Monocytes % 7.2 % (3.3-12.3); Neutrophils % 72.4 % (41.7-73.7); Platelets 395 thou/uL (152-406); RBC Red Blood Cell Count 4.37 M/uL (3.86-4.86); Red Cell Distribution Width 16.8 % (12.1-15.2)
[2023-12-31 08:28] LABS: Anion Gap 10.5 mEq/L (5.0-15.0); Magnesium 2.1 mg/dL (1.6-2.4); Potassium 3.5 mEq/L (3.5-5.1)
[2023-12-31] MEDS: DULERA 100/5 (MOMETASONE/FORMOTEROL) INHALER IH SCH (09:00)
--- NOTE | 2023-12-31 12:07 | EKG ---
Test Date: 2023-12-30 Test Time: 22:27:08 Brine Room Laborer: BEV MEASUREMENT RESULTS: Intervals: Rate: 110 RI: 128 QRSD: 66 QT: 352 QTc: 476 [place]: P: 33 RI: 128 QRS: 40 T: 135 INTERPRETIVE STATEMENTS: Sinus tachycardia Nonspecific ST and T wave abnormality Abnormal ECG Compared to ECG 11/29/2023 10:32:30 ST (T wave) deviation now present Sinus rhythm no longer present T-wave abnormality no longer present Electronically Signed On 12-31-23 12:06:58 CDT by Jaxson Hoover
--- NOTE | 2023-12-31 16:50 | P.PN ---
Date of Service: 12/31/23 patient seen on rounds today. continues with dyspnea on exertion and feeling unable to take a deep breath. breathing affecting her speech - has to take a break after a few words. afebrile. Reportse ~20lb weight loss over last ~1 month, states has been nauseated and no appetite worsening pleural effusion unclear etiology, initially seen last month when admitted for covid pneumonia, thought to be more paraneumonic effusion has worsened over last few weeks pt with low appetite and albumin is low (<2.0) compared to last month of 2.5 which could contribute. denies any significant lower extremity edema. Discussed risk of cancer given h/o tobacco use. States last CT was probably ~2010 Radiology unavailable for thoracentesis today, planned for tomorrow morning. does not need to be NPO will add 1dose of her home klonopin to be given prior to procedure
--- NOTE | 2023-12-31 20:11 | P.CNS ---
Date of Consult: 12/31/23 Reason for Consult: Pleural effusion Chief Complaint: Shortness of breath History of Present Illness: Patient is 58 years of age was recently discharged from the hospital with left- sided pleural effusion patient refused thoracentesis was seen in my office had progressive shortness of breath patient was scheduled for thoracentesis became worse last night and it appeared in the hospital denies any fever chills or chest pain patient is a former smoker Allergies metronidazole [From Flagyl] Allergy (Severe, Verified 12/31/23 01:43) Anaphylaxis Home Medications: Aspirin [Aspirin EC 325 MG] 1 tab PO DAILY 11/25/23 Atorvastatin Calcium [Lipitor] 1 tab PO BEDTIME 11/25/23 Krill/[place]-3/Dha/Epa/Lipids [[place]-3 Krill Oil 500 mg Sfgl] 1 cap PO DAILY 11/25/23 Levothyroxine [Synthroid*] 1 tab PO DAILY 11/25/23 Omeprazole [Prilosec] 1 cap PO [id number] 11/25/23 clonazePAM [Clonazepam] 1 tab PO BID PRN 11/25/23 Acetaminophen with Codeine [Acetaminophen-Cod #3 Tablet] 1 tab PO PRN PRN 12/31/23 Cholecalciferol (Vitamin D3) [Vitamin D3] 50 mcg PO DAILY 12/31/23 Duloxetine HCl 60 mg PO DAILY 12/31/23 Fluticasone/Umeclidin/Vilanter [Trelegy Ellipta 200-62.5-25] 1 puff NEB DAILY 12/31/23 Gabapentin 600 mg PO BID PRN 12/31/23 hydrOXYzine HCL [Atarax*] 25 mg PO PRN PRN 12/31/23 - Past Medical/Surgical History Diabetic: No -: Hypertension -: strokes -: Bipolar -: pneumonia -: Fibromalgia, -: arthitis -: HYpothyridism -: GERD -: Crohn's disease -: [place] ligition -: partial hysterectomy -: brain biopsy - Family History Father Medical History: Cancer Mother Medical History: Cancer - Social History Smoking Status: Former smoker, Unknown if ever smoked Alcohol use: No CD- Drugs: No Caffeine use: No Place of Residence: Home Review of Systems 10-point ROS is otherwise unremarkable Respiratory: Shortness of Breath Physical Examination Temp Pulse Resp BP Pulse Ox 97.2 F 72 16 101/61 91 12/31/23 16:00 12/31/23 16:00 12/31/23 16:00 12/31/23 16:00 12/31/23 16:00 General: Alert, Oriented x3 HEENT: Atraumatic Neck: Supple Respiratory: Diminished (Diminished on the left side) Cardiovascular: No edema, Regular rate/rhythm, Normal S1 S2 Gastrointestinal: Normal bowel sounds, Soft and benign Laboratory Data (last 24 hrs) 12/31/23 12/31/23 12/30/23 08:00 08:00 22:35 WBC 12.60 H Hgb 11.3 L Hct 35.5 L Plt Count 395 PT 13.3 H INR 1.19 Sodium 137 Potassium 3.5 BUN 23 H Creatinine 0.70 Glucose 115 H Magnesium 2.1 Total Bilirubin AST ALT Alkaline Phosphatase 12/30/23 12/30/23 22:35 22:35 WBC 13.20 H Hgb 12.1 Hct 37.4 Plt Count 444 H PT INR Sodium 134 L Potassium 3.3 L BUN 25 H Creatinine 0.98 Glucose 111 H Magnesium 1.1 L Total Bilirubin 0.8 AST 34 ALT 39 Alkaline Phosphatase 225 H - Problems (1) Pleural effusion Current Visit: No Status: Acute Plan: Patient is 58 years of age admitted with massive left-sided pleural effusion most likely is malignant patient is scheduled for a large-volume thoracentesis tomorrow labs chemistries reviewed chemistries and cytology ordered on the pleural fluid for tomorrow may have underlying obstructive airways disease will give a trial of bronchodilators while she is in the hospital possible discharge tomorrow after the thoracentesis
[2023-12-31] MEDS: ATORVASTATIN 80 MG TAB PO SCH (20:39)
[2024-01-01 05:51] LABS: Absolute Basophils 0.1 K/uL (0-0.5); Absolute Eosinophils 0.3 K/uL (0-0.5); Absolute Lymphocytes (CBC) 1.7 K/uL (0.7-4.9); Absolute Monocytes 0.9 K/uL (0.1-1.3); Absolute Neutrophil 7.4 K/uL (1.8-8.0); Basophils % 0.6 % (0-1.3); Eosinophils % 3.2 % (0-4.4); Hematocrit 33.7 % (36.0-45.0); Hemoglobin 11.1 g/dL (12.0-15.0); Lymphocytes % 16.3 % (15.3-44.8); MCH 26.6 pg (27.0-35.0); MCHC 32.9 g/dL (32.0-36.0); Monocytes % 8.3 % (3.3-12.3); Neutrophils % 71.6 % (41.7-73.7); Nucleated Red Blood Cells % 0.1 % (0-0); Platelets 369 thou/uL (152-406); RBC Red Blood Cell Count 4.16 M/uL (3.86-4.86); Red Cell Distribution Width 16.7 % (12.1-15.2)
[2024-01-01 05:56] LABS: PT Prothrombin Time 12.7 SECONDS (9.4-12.5); PTT, Activated Partial Thromb 30.9 SECONDS (24.3-36.9); Protime INR 1.14
[2024-01-01 06:11] LABS: Albumin 2.2 g/dL (3.4-5.0); Albumin/Globulin Ratio 0.4 (1.1-1.8); Anion Gap 9.8 mEq/L (5.0-15.0); Magnesium 2.2 mg/dL (1.6-2.4); Phosphorus 3.3 mg/dL (2.5-4.9); Potassium 3.8 mEq/L (3.5-5.1); Protein, Total 7.2 g/dL (6.4-8.2)
[2024-01-01] MEDS: clonazePAM 1 MG TAB PO ONE (07:20)
--- NOTE | 2024-01-01 09:17 | P.PN ---
Date of Service: 01/01/24 Subjective: s/p thoracentesis today had 1.5L red/bloody fluid removed per patient breathing feels slightly easier after procedure afebrile ROS: 10 point ROS as noted above, otherwise negative Physical Exam: GEN: Alert, oriented, NAD HEENT: Normal conjunctiva, sclera anicteric, CV: Regular rate and rhythm, no edema Pulm: Nonlabored respirations on room air, diminished at left base ABD: soft, mild tenderness left side Neuro: Normal speech, normal affect Problem List: Large left pleural effusion s/p thoracentesis 12/31 (1.5L removed) Moderate ascites COPD, chronic Hypothyroidism Anxiety Chrohn's disease GERD Hypertension Hx prior CVA Large left pleural effusion s/p thoracentesis 12/31 (1.5L removed) Moderate ascites on admission, presents with worsening dyspnea on exertion and feeling unable to take a deep breath. CXR (12/30): Large progressive left layering pleural effusion Worsening left pleural effusion over the last few weeks unclear etiology, initially seen last month when admitted for covid pneumonia, thought to be more paraneumonic effusion was offered thoracentesis last hospitalization but patient had declined due to concern for complications/risk of procedure. Agreeable to procedure this hospitalization. Reportse ~20lb weight loss over last ~1 month, states has been nauseated and no appetite pt with low appetite and albumin is low (<2.0) compared to last month of 2.5 which could contribute. denies any significant lower extremity edema. s/p thoracentesis (12/31): had 1.5L red/bloody fluid removed without complications CT chest post thoracentesis (12/31): Moderate residual left pleural effusion. Moderate Free ascites. Hepatic Steatosis repeat CXR (12/31): no pneumothorax. Residual moderate left pleural effusion - improved compared to prior study. Fluid cytology/culture sent out; pending results Dr. Montero, pulm consulted pain control - Tylenol #3 added 12/31 Patient reports fluid was red and bloody, could not see through it Awaiting cell counts, cytology has been sent off Will monitor overnight, repeat chest x-ray in a.m. to rule out/evaluate rate of reaccumulation COPD Stable Continue home bronchodilators. Hypothyroidism continue home synthroid Anxiety given klonopin x1 prior to thoracentesis confirm home meds Chrohn's disease GERD protonix BID Hypertension Hx prior CVA confirm home meds, restart as appropriate VTE:SCD Code: Full Dispo: Home, 1 day Pending thoracentesis / recovery / pulm recs Repeat chest x-ray and CBC in a.m. Time Spent Managing Pts Care (In Minutes): 51
[2024-01-01] MEDS: POTASSIUM CL SA 10 MEQ TAB PO ONE (09:46)
[2024-01-01] MEDS: CODEINE 30MG/APAP 300MG TAB PO PRN (09:47)
--- NOTE | 2024-01-01 10:14 | RAD REPORT ---
EXAM: Thorax W/ Con CLINICAL INDICATION: Female, 58 years old. s/p thoracentesis r/o malignancy / infxn TECHNIQUE: Routine CT scan of the chest with intravenous contrast. One or more of the following dose reduction techniques were used: Automated exposure control, adjustment of the mA and/or kV according to patient size, and/or iterative reconstruction. Unless otherwise specified, incidental fi ndings do not require dedicated imaging follow-up. COMPARISON: 12/01/2023 CT. 12/30/2023 radiograph FINDINGS: LUNGS: Airways are clear. Predominantly dependent segmental and subsegmental opacities with air bronc hogram in the left lung with volume loss. Atelectasis is favored. Right lung is clear apart from mild geographic centrally predominant groundglass opacities which may relate to suboptimal inspirator y effort. No suspicious masses or nodules. PLEURA: Moderate layering left pleural effusion. No discrete evidence of loculation at this time. No enhancement of the visceral or parietal pleura is appreciated. No pneumothorax. MEDIASTINUM AND LYMPH NODES: No mediastinal mass or fluid collection. Normal size mediastinal, hilar, and axillary lymph nodes. OSSEOUS STRUCTURES AND CHEST WALL: Intact. UPPER ABDOMEN: Moderate free ascites. Pronounced parenchymal hypoattenuation throughout the liver sug gesting steatosis.. IMPRESSION: Moderate residual left pleural effusion with underlying up to segmental airspace opacification with v olume loss, favoring atelectasis. Right lung is clear apart from centrally predominant mild geographic groundglass opacities, suggestin g suboptimal inspiratory effort. Moderate free ascites visualized in the upper abdomen. Hepatic steatosis.
--- NOTE | 2024-01-01 10:19 | RAD REPORT ---
PROCEDURE: ULTRASOUND GUIDED THORACENTESIS CLINICAL INDICATION: [facility] MA[facility] Left pleural effusion to do 12/31- no radiologist 12/30- notified ER--- HR PROCEDURE DETAILS: Consent: Informed consent for the procedure including risks, benefits and alternatives was obtained a nd time-out was performed prior to the procedure. Preparation: The site was prepared and draped using maximal sterile barrier technique including cutan eous antisepsis. Procedure: Initial limited thoracic ultrasound of the left chest was performed and a large pleural ef fusion was seen. A safe window for thoracentesis was identified with ultrasound to oumar a suitable access site. Local anesthesia was administered. The pleural cavity was accessed, and fluid return con firmed position. A 6 Italian drainage catheter was placed and fluid was drained. The catheter was removed, and a sterile was applied. Patient tolerated the procedure with no evidence of complications . Estimated blood loss: None IMPRESSION: Successful ultrasound guided thoracentesis, yielding 1500 mL of straw colored fluid. Additional procedure(s): Limited thoracic ultrasound. PLAN: Aspirated fluid was sent for analysis.
--- NOTE | 2024-01-01 11:21 | RAD REPORT ---
EXAMINATION: ONE VIEW CHEST XR CLINICAL INDICATION: Female, 58 years old.,Status Post Thorocentesis TECHNIQUE: Frontal chest projection is submitted. Examination is limited by patient positioning and t echnique. COMPARISON: 12/30/2023 FINDINGS: The right lung is well inflated and clear. No pneumothorax. Residual moderate left pleural effusion, improved since the prior exam. The heart is normal in size. IMPRESSION: No pneumothorax. Residual moderate left layering pleural effusion.
[2024-01-01 12:54] LABS: Body Fluid WBC 1821 /mm^3
--- NOTE | 2024-01-01 12:55 | RAD REPORT ---
Procedure: Chest Single View History: Thoracentesis A pneumothorax is not seen status post left thoracentesis IMPRESSION: No pneumothorax visualized
[2024-01-01 13:29] LABS: Appearance TURBID (CLEAR); Body Fluid Lymphocytes 68 %; Body Fluid Source PLEURAL; Color of Supernate Not Xanthochromic (Not Xantho); Color of fluid Red (COLORLESS); Fluid Total Cells Count 100; Tube # #1
[2024-01-02 02:05] VITALS: BMI 35.5
[2024-01-02 05:02] LABS: Absolute Eosinophils 0.3 K/uL (0-0.5); Absolute Lymphocytes (CBC) 1.5 K/uL (0.7-4.9); Absolute Monocytes 0.6 K/uL (0.1-1.3); Absolute Neutrophil 5.6 K/uL (1.8-8.0); Basophils % 0.6 % (0-1.3); Eosinophils % 3.2 % (0-4.4); Hemoglobin 10.6 g/dL (12.0-15.0); Lymphocytes % 18.3 % (15.3-44.8); MCH 26.8 pg (27.0-35.0); MCHC 33.1 g/dL (32.0-36.0); MCV 80.9 fL (80-100); MPV 9.3 fL (7.6-11.3); Monocytes % 8.1 % (3.3-12.3); Neutrophils % 69.8 % (41.7-73.7); Platelets 353 thou/uL (152-406); RBC Red Blood Cell Count 3.96 M/uL (3.86-4.86); Red Cell Distribution Width 16.5 % (12.1-15.2)
[2024-01-02 05:07] LABS: Albumin/Globulin Ratio 0.4 (1.1-1.8); Anion Gap 7.7 mEq/L (5.0-15.0); Bilirubin Total 0.6 mg/dL (0.2-1.0); Globulin 4.7 g/dL (2.3-3.5); Magnesium 2.1 mg/dL (1.6-2.4); Potassium 3.7 mEq/L (3.5-5.1); Protein, Total 6.7 g/dL (6.4-8.2)
--- NOTE | 2024-01-02 06:47 | RAD REPORT ---
EXAMINATION: ONE VIEW CHEST XR CLINICAL INDICATION: Female, 58 years old.eval effusion TECHNIQUE: 1 View, AP supine, X-ray of the chest was performed. [id number]. COMPARISON: 01/01/2024 FINDINGS: Lungs and pleura: Moderate left pleural effusion and likely underlying atelectasis. This is unchanged from yesterday. The right lung is clear. Heart and mediastinum: Normal heart size. Unremarkable mediastinal contours. Osseous structures: No acute abnormality. Tubes/lines: None Other: None. IMPRESSION: Moderate left pleural effusion and likely underlying atelectasis massively changed since yesterday.
--- NOTE | 2024-01-02 08:05 | P.DS ---
Admission Date: 12/31/23 Discharge Date: 01/02/24 Disposition: ROUTINE DISCHARGE Discharge Condition: GOOD Reason for Admission: Shortness of breath Consultations: Pulmonology - Dr. Montero Brief History of Present Illness: 58 yo F, PMH: suspected COPD, Patient recently hospitalized and noted to have left pleural effusion presenting to the emergency department with a complaint of progressive shortness of breath since discharge from hospital. She uses 2 L of oxygen by nasal cannula at home. Patient was offered thoracentesis during her previous admission about 3 weeks ago but she declined. Patient is scheduled for thoracentesis next week but states she cannot wait till next week. Chest x-ray done in the emergency department shows large pleural effusion on the left, pleural effusion significan tly increased compared to previous images. Blood work showed mild leukocytosis and hyponatremia. Previous echocardiogram was unremarkable with normal EF. Patient is admitted for further management. Hospital Course: Problem List: Large left pleural effusion s/p thoracentesis 12/31 (1.5L removed) Moderate ascites COPD, chronic Hypothyroidism Anxiety Chrohn's disease GERD Hypertension Hx prior CVA Physician discharge instructions: Patient presented with worsening dyspnea, difficulty taking deep breaths, secondary to large progressive left layering pleural effusion seen on Chest xray on admission. This was initially seen last month when admitted for covid pneumonia, thought to be more paraneumonic effusion and was offered thoracentesis at the time but patient had declined due to concern for complications/risks of procedure. Patient agreeable to thoracentesis this hospitalization after discussion. She underwent thoracentesis on 12/31 and had 1.5 liters of red, bloody fluid removed. She reported some relief in her breathing after thoracentesis. Unclear exact etiology, discussed possibilities of parapneumonic, possible malignant effusion. She reports ~20 lb weight loss over the last month and has had minimal appetite. Her albumin was low compared to last month (2.5 -> 2.0), which that combined with low appetite could be contributing. CT chest after thoracentesis noted residual left pleural effusion with moderate free ascites and hepatic steaotosis. Repeat chest xray on day of discharge noted improvement/stability of residual left moderate pleural effusion. No pneumothorax seen. Patient was feeling better, breathing more comfortably, afebrile > 48 hours, mild leukocytosis (13 -> 8) resolved, hemoglobin was stable, and was deemed stable for discharge. Pulmonology, Dr. Montero, was consulted, and recommended following up as scheduled - next Thursday (01/10) to discuss fluid cytology results from thoracentesis and next step. Medications: no new prescriptions continue home medications as previously prescribed okay to restart aspirin tomorrow Follow up: PCP 3-5 days Pulmonology 1-2 weeks Please call to schedule / confirm appointments Physical Exam: GEN: Alert, oriented, NAD HEENT: Normal conjunctiva, sclera anicteric, CV: Regular rate and rhythm, no edema Pulm: Nonlabored respirations on room air, diminished at left base ABD: soft, mild tenderness left side Neuro: Normal speech, normal affect Vital Signs/Physical Exam: Temp Pulse Resp BP Pulse Ox 98.2 F 84 18 112/71 91 01/02/24 03:34 01/02/24 03:34 01/02/24 04:00 01/02/24 03:34 01/02/24 04:00 Laboratory Data at Discharge: WBC 8.00 thou/uL (4.3-10.9) 01/02/24 04:05 Hgb 10.6 g/dL (12.0-15.0) L 01/02/24 04:05 Hct 32.0 % (36.0-45.0) L 01/02/24 04:05 Plt Count 353 thou/uL (152-406) 01/02/24 04:05 PT 12.7 SECONDS (9.4-12.5) H 01/01/24 05:28 INR 1.14 01/01/24 05:28 APTT 30.9 SECONDS (24.3-36.9) 01/01/24 05:28 Sodium 139 mEq/L (136-145) 01/02/24 04:05 Potassium 3.7 mEq/L (3.5-5.1) 01/02/24 04:05 BUN 15 mg/dL (7-18) 01/02/24 04:05 Creatinine 0.73 mg/dL (0.55-1.02) 01/02/24 04:05 Glucose 106 mg/dL (74-106) 01/02/24 04:05 Phosphorus 3.3 mg/dL (2.5-4.9) 01/01/24 05:28 Magnesium 2.1 mg/dL (1.6-2.4) 01/02/24 04:05 Total Bilirubin 0.6 mg/dL (0.2-1.0) 01/02/24 04:05 AST 22 U/L (15-37) 01/02/24 04:05 ALT 21 U/L (13-56) 01/02/24 04:05 Alkaline Phosphatase 181 U/L (45-117) H 01/02/24 04:05 Home Medications: Aspirin [Aspirin EC 325 MG] 1 tab PO DAILY 11/25/23 Atorvastatin Calcium [Lipitor] 1 tab PO BEDTIME 11/25/23 Krill/[place]-3/Dha/Epa/Lipids [[place]-3 Krill Oil 500 mg Sfgl] 1 cap PO DAILY 11/25/23 Levothyroxine [Synthroid*] 1 tab PO DAILY 11/25/23 Omeprazole [Prilosec] 1 cap PO [id number] 11/25/23 clonazePAM [Clonazepam] 1 tab PO BID PRN 11/25/23 Acetaminophen with Codeine [Acetaminophen-Cod #3 Tablet] 1 tab PO PRN PRN 12/31/23 Cholecalciferol (Vitamin D3) [Vitamin D3] 50 mcg PO DAILY 12/31/23 Duloxetine HCl 60 mg PO DAILY 12/31/23 Fluticasone/Umeclidin/Vilanter [Trelegy Ellipta 200-62.5-25] 1 puff NEB DAILY 12/31/23 Gabapentin 600 mg PO BID PRN 12/31/23 hydrOXYzine HCL [Atarax*] 25 mg PO PRN PRN 12/31/23 Physician Discharge Instructions: Physician discharge instructions: Patient presented with worsening dyspnea, difficulty taking deep breaths, secondary to large progressive left layering pleural effusion seen on Chest xray on admission. This was initially seen last month when admitted for covid pneumonia, thought to be more paraneumonic effusion and was offered thoracentesis at the time but patient had declined due to concern for complications/risks of procedure. Patient agreeable to thoracentesis this hospitalization after discussion. She underwent thoracentesis on 12/31 and had 1.5 liters of red, bloody fluid removed. She reported some relief in her breathing after thoracentesis. Unclear exact etiology, discussed possibilities of parapneumonic, possible malignant effusion. She reports ~20 lb weight loss over the last month and has had minimal appetite. Her albumin was low compared to last month (2.5 -> 2.0), which that combined with low appetite could be contributing. CT chest after thoracentesis noted residual left pleural effusion with moderate free ascites and hepatic steaotosis. Repeat chest xray on day of discharge noted improvement/stability of residual left moderate pleural effusion. No pneumothorax seen. Patient was feeling better, breathing more comfortably, afebrile > 48 hours, mild leukocytosis (13 -> 8) resolved, hemoglobin was stable, and was deemed stable for discharge. Pulmonology, Dr. Montero, was consulted, and recommended following up as scheduled - next Thursday (01/10) to discuss fluid cytology results from thoracentesis and next step. Medications: no new prescriptions continue home medications as previously prescribed okay to restart aspirin tomorrow Follow up: PCP 3-5 days Pulmonology 1-2 weeks Please call to schedule / confirm appointments Followup: Saud Correia FNP [Primary Care Provider] - Time spent managing pt's care (in minutes): 45
[2024-01-02] MEDS: POTASSIUM CL SA 10 MEQ TAB PO ONE (08:09)
[2024-01-02 08:27] VITALS: BP 108/66; TEMP 97.4
[2024-01-02 14:58] VITALS: O2SAT 95
[2024-01-05 20:39] LABS: TOTAL PROTEIN, PLEURAL FLUID 5.1 g/dL
[2024-01-07 11:03] LABS: ALBUMIN, PLEURAL FLUID 2.1 g/dL
== END 2024-01-02 10:36 | disposition home or self-care (01) | DRG 844 ==
LOC: ER 21:28 → ERHOLD 12-31 00:47 → OBSVTOIN 12-31 11:28 → 2ND 12-31 12:15
PROVIDERS: ADMIT Internal Medicine; ATTEND Hospitalist
PROC: 0W9B3ZX Drainage of Left Pleural Cavity, Percutaneous Approach, Diagnostic (ICD-10-PCS; principal; 2024-01-01)
DX: C80.1 Malignant (primary) neoplasm, unspecified (principal); E87.1 Hypo-osmolality and hyponatremia; R18.8 Other ascites; K50.90 Crohn's disease, unspecified, without complications; J91.0 Malignant pleural effusion; M79.7 Fibromyalgia; I10 Essential (primary) hypertension; F41.9 Anxiety disorder, unspecified; K76.0 Fatty (change of) liver, not elsewhere classified; E03.9 Hypothyroidism, unspecified; K21.9 Gastro-esophageal reflux disease without esophagitis; E66.01 Morbid (severe) obesity due to excess calories; Z99.81 Dependence on supplemental oxygen; Z86.73 Personal history of transient ischemic attack (TIA), and cerebral infarction without residual deficits; Z79.890 Hormone replacement therapy; Z79.899 Other long term (current) drug therapy; Z87.891 Personal history of nicotine dependence; Z90.710 Acquired absence of both cervix and uterus; Z68.35 Body mass index [BMI] 35.0-35.9, adult; Z79.82 Long term (current) use of aspirin; Z79.52 Long term (current) use of systemic steroids; Z98.51 Tubal ligation status; Z86.16 Personal history of COVID-19
CPT/HCPCS: 32555; 36415; 71045; 71260; 80048; 80053; 80076; 81001; 82042; 82150; 82945; 83615; 83735; 83880; 84100; 84157; 84311; 84478; 84484; 85025; 85610; 85730; 87015; 87040; 87070; 87086; 87088; 87102; 87116; 87206; 88108; 88305; 89050; 93005; 94760; 96365; 96366; 96367; 99285; G0378; J0692; J3475; J3535; J7050; Q9967

== ENCOUNTER 2024-01-21 10:00 | Day surgery (SDC) | payer OTHER ==
[2024-01-21] MEDS: Ringers Lactate 1,000 ML IV ONE (10:45)
[2024-01-21] MEDS ORDERED: FENTANYL CITR 100 MCG/2 ML ONE (12:11)
[2024-01-21] MEDS ORDERED: MIDAZOLAM HCL 2 MG/2 ML INJ ONE (12:11)
[2024-01-21] MEDS ORDERED: LIDOCAINE 2% MPF 5 ML VIAL ONE (12:11)
[2024-01-21] MEDS ORDERED: ONDANSETRON 4 MG/2 ML VIAL ONE ×2 (12:11→12:13)
[2024-01-21] MEDS ORDERED: propofoL 200 MG/20 ML VIAL IV ONE (12:11)
[2024-01-21] MEDS ORDERED: KETOROLAC 30 MG/ML INJ ONE (12:13)
[2024-01-21] MEDS ORDERED: dexAMETHasone 10 MG/ML VIAL ONE (12:13)
[2024-01-21] MEDS ORDERED: LIDOCAINE 1% MPF 5 ML VIAL ONE (12:13)
[2024-01-21] MEDS: CEFAZOLIN SODIUM 2 GM/VIAL ONE (12:57)
[2024-01-21] MEDS ORDERED: BUPIVACAINE 0.25% PF 30 ML VIAL ONE (13:00)
[2024-01-21] MEDS: LIDOCAINE HCL/EPINEPHRINE 20 ML MDV ONE (13:36)
--- NOTE | 2024-01-21 13:59 | P.OP ---
Preoperative diagnosis: LEFT Malignant Pleural Effusion Postoperative diagnosis: LEFT Malignant Pleural Effusion Primary procedure: Placement of LEFT Thoracic Pleur-X Catheter Anesthesia: MAC + Local Estimated blood loss: <2cc Specimen: Dark, blood tinged red fluid Findings: Dark, blood tinged red fluid Complications: None Drain(s): Other (Pleur-X Catheter) Implants: Pleur-X Catheter Transferred to: Recovery Room Condition: Good
[2024-01-21] MEDS: ALBUTEROL 2.5 MG/3 ML NEB SOL ONE (14:30)
--- NOTE | 2024-01-21 14:38 | RAD REPORT ---
EXAMINATION: ONE VIEW CHEST XR CLINICAL INDICATION: S/P PLEUREX CATHETER TECHNIQUE: Frontal chest projection is submitted. Examination is limited by patient positioning and t echnique. COMPARISON: 01/02/2024 FINDINGS: Left-sided Pleurx catheter is in place. No pneumothorax evident. Mild/moderate bibasilar lung opaciti es remain unchanged. The heart is upper limit of normal in size. No displaced fractures identified. IMPRESSION: No postprocedure measurable pneumothorax seen
[2024-01-21] MEDS: KETOROLAC 30 MG/ML INJ ONE (14:55)
--- NOTE | 2024-01-21 15:14 | OP ---
Date of Procedure: 01/21/2024 Surgeon: Baldev Larios MD, Preoperative Diagnosis: Left malignant pleural effusion. Postoperative Diagnosis: Left malignant pleural effusion. Procedure: Placement of left thoracic PleurX catheter. Anesthesia: MAC plus local 1% lidocaine. Estimated Blood Loss: 2 cc. Specimen: Dark blood tinged red fluid. Findings: Dark blood tinged red fluid. Complications: None. Drains: PleurX catheter. Implants: PleurX catheter. Disposition: The patient was transferred to recovery room in good condition. Approximately 1 L of fluid withdrawn through vacutainer bottle. Procedure In Detail: After informed consent was obtained, the patient was brought to the operating r oom, prepped and draped in the usual sterile fashion after adequate anesthesia was achieved. I anest hetized an area of the 5th and 6th intercostal space in the posterior axillary line at the subcutaneo us tissues and up to and abutting the rib. After anesthetizing the area abutting up to the rib, I ma de a [place] incision overlying the insertion site and placed the needle into the thoracic cavity and da rk reddish red clear/yellowish fluid was immediately appreciated. I advanced the wire into the chest cavity at this point and removed the introducer sheath. At this point, I made a counterincision ant erior to this and placed the tunneling device to bring the catheter into the appropriate position wit h the cuff in the midportion. At this point, I performed sequential dilatation using Seldinger techn ique, ultimately placing the catheter into the left thoracic space. I encountered immediately 1 L of reddish yellow clear fluid consistent with pleural fluid. At this point, I irrigated the area and c losed the insertion site with a single interrupted 2-0 silk suture and a sterile dressing placed over top. After 1 L of fluid was drained, I then placed a sterile dressing over the top. The patient to lerated the procedure without incident or complication, transferred to PACU in good condition. All c ounts were correct at the end of the case. TK/MODL Voice ID: [id number] Report ID: [id number]
[2024-01-21] MEDS: HYDROCODONE/APAP 7.5/325 MG TAB ONE (15:41)
[2024-01-21 16:15] VITALS: BP 99/66; TEMP 97
[2024-01-21 16:21] VITALS: O2SAT 92
== END 2024-01-21 16:13 | disposition home or self-care (01) ==
LOC: OR 10:00
PROVIDERS: ATTEND Surgery
PROC: 0W9B30Z Drainage of Left Pleural Cavity with Drainage Device, Percutaneous Approach (ICD-10-PCS; principal; 2024-01-21 13:15)
DX: J91.0 Malignant pleural effusion (principal)
CPT/HCPCS: 71045; J1100; J2001; J2250; J2405; J2704; J3010; J7120; J7613

== ENCOUNTER 2024-02-25 11:03 | Inpatient (IN) | payer OTHER ==
[2024-02-25 12:09] LABS: Absolute Basophils 0.1 K/uL (0-0.5); Absolute Eosinophils 0.1 K/uL (0-0.5); Absolute Lymphocytes (CBC) 1.3 K/uL (0.7-4.9); Absolute Monocytes 0.8 K/uL (0.1-1.3); Basophils % 0.5 % (0-1.3); Eosinophils % 0.6 % (0-4.4); Hematocrit 32.5 % (36.0-45.0); Hemoglobin 9.8 g/dL (12.0-15.0); Lymphocytes % 9.8 % (15.3-44.8); MCH 24.3 pg (27.0-35.0); MCHC 30.2 g/dL (32.0-36.0); MCV 80.5 fL (80-100); MPV 8.9 fL (7.6-11.3); Monocytes % 6.3 % (3.3-12.3); Neutrophils % 82.8 % (41.7-73.7); Nucleated Red Blood Cells % 0.1 % (0-0); Platelets 374 thou/uL (152-406); RBC Red Blood Cell Count 4.04 M/uL (3.86-4.86)
[2024-02-25 12:13] LABS: PT Prothrombin Time 12.1 SECONDS (9.4-12.5); Protime INR 1.08
[2024-02-25 12:22] LABS: Anion Gap 7.7 mEq/L (5.0-15.0); Potassium 3.7 mEq/L (3.5-5.1)
--- NOTE | 2024-02-25 12:57 | RAD REPORT ---
EXAMINATION: ONE VIEW CHEST XR CLINICAL INDICATION: PRE-OP TECHNIQUE: Frontal chest projection is submitted. Examination is limited by patient positioning and t echnique. COMPARISON: 08/21/2023 FINDINGS: Evidence of a moderate to large loculated pleural fluid collection on the left seen. Previously noted indwelling pleural catheter is not seen. Mild to moderate pulmonary edema pattern is seen. The heart is moderately enlarged.
[2024-02-25] MEDS: ALBUTEROL 2.5 MG/3 ML NEB SOL ONE ×2 (13:18→16:14)
[2024-02-25] MEDS ORDERED: ONDANSETRON 4 MG/2 ML VIAL ONE (15:05)
[2024-02-25] MEDS ORDERED: propofoL 200 MG/20 ML VIAL IV ONE (15:05)
[2024-02-25] MEDS ORDERED: LIDOCAINE 1% MPF 5 ML VIAL ONE (15:05)
[2024-02-25] MEDS ORDERED: FENTANYL CITR 100 MCG/2 ML ONE (15:05)
[2024-02-25] MEDS ORDERED: ROCURONIUM 50 MG/5 ML VIAL IV ONE (15:05)
[2024-02-25] MEDS: SUCCINYLCHOLINE 20 MG/ML (10 ML) IV ONE (15:22)
[2024-02-25] MEDS: Ringers Lactate 1,000 ML IV ONE (16:24)
[2024-02-25] MEDS: CEFAZOLIN SODIUM 2 GM/VIAL ONE (16:24)
[2024-02-25] MEDS: LIDOCAINE HCL/EPINEPHRINE 20 ML MDV ONE (16:37)
[2024-02-25] MEDS ORDERED: Phenylephrine HCl 10 MG/ML 1 ML VIAL ONE (17:04)
--- NOTE | 2024-02-25 17:38 | P.OP ---
Preoperative diagnosis: Peritoneal Metastatic Cancer / Malignant LEFT Pleural Effusion Postoperative diagnosis: Peritoneal Metastatic Cancer / Malignant LEFT Pleural Effusion Primary procedure: Laparoscopic Peritoneal Mass Biopsy Secondary procedure: LEFT Thoracentesis Anesthesia: GETA + Local Estimated blood loss: <10cc Specimen: Peritoneal Mass Findings: Blood Tinged Ascitis, Blood tinged LEFT Effusion Complications: None Transferred to: Recovery Room Condition: Good
[2024-02-25] MEDS: NA CHLORIDE 0.9% 1,000 ML IV SCH (18:05)
[2024-02-25] MEDS: NA CHLORIDE 0.9% 1,000 ML ONE (18:24)
[2024-02-25] MEDS ORDERED: ONDANSETRON 4 MG/2 ML VIAL IV PRN (18:37)
[2024-02-25] MEDS ORDERED: ALBUTEROL 2.5 MG/3 ML NEB SOL NEB PRN (18:37)
--- NOTE | 2024-02-25 18:42 | P.HP ---
Certification for Inpatient Patient admitted to: Inpatient With expected LOS: >2 Midnights Practitioner: I am a practitioner with admitting privileges, knowledge of patient current condition, hospital course, and medical plan of care. Services: Services provided to patient in accordance with Admission requirements found in Title 42 Section 412.3 of the Code of Federal Regulations Patient History Date of Service: 02/25/24 Reason for admission: Resp Failure History of Present Illness: 58 yo female with past medical history of COPD, hypertension, GERD, large left pleural effusion status post thoracentesis, hypothyroidism, anxiety, Crohn's disease, ascites who underwent Laparoscopic Peritoneal Mass Biopsy and Left Thoracentesis by Dr. Larios and was admitted for further management. Patient was hypoxic and hypotensive postprocedure and did not meet the criteria of extubation and admitted to the ICU. Patient was found to be hypotensive and was started on pressors ,continues to be intubated. Patient is sedated and could not offer any history hence most of the history is obtained from the chart review and talking to the surgeon . Allergies metronidazole [From Flagyl] Allergy (Severe, Verified 02/25/24 11:15) Anaphylaxis adhesive tape Allergy (Verified 02/25/24 11:15) Rash Home medications list reviewed: Yes Home Medications: Aspirin [Aspirin EC 325 MG] 1 tab PO DAILY 11/25/23 Atorvastatin Calcium [Lipitor] 1 tab PO BEDTIME 11/25/23 Krill/[place]-3/Dha/Epa/Lipids [[place]-3 Krill Oil 500 mg Sfgl] 1 cap PO DAILY 11/25/23 Levothyroxine [Synthroid*] 1 tab PO DAILY 11/25/23 Omeprazole [Prilosec] 1 cap PO [id number] 11/25/23 Acetaminophen with Codeine [Acetaminophen-Cod #3 Tablet] 1 tab PO PRN PRN 12/31/23 Cholecalciferol (Vitamin D3) [Vitamin D3] 50 mcg PO DAILY 12/31/23 Duloxetine HCl 60 mg PO DAILY 12/31/23 Fluticasone/Umeclidin/Vilanter [Trelegy Ellipta 200-62.5-25] 1 puff NEB DAILY 12/31/23 Gabapentin 600 mg PO BID PRN 12/31/23 hydrOXYzine HCL [Atarax*] 25 mg PO PRN PRN 12/31/23 - Past Medical/Surgical History Diabetic: No Past Medical History: Reviewed- Non-Contributory -: Hypertension -: strokes -: Bipolar -: pneumonia -: Fibromalgia, -: arthitis -: HYpothyridism -: GERD -: Crohn's disease Past Surgical History: Reviewed- Non-Contributory -: Tunbal ligition -: partial hysterectomy -: brain biopsy - Family History Family History: Reviewed- Non-Contributory - Family History Father -: Cancer Mother -: Cancer - Social History Smoking Status: Never smoker Alcohol use: No CD- Drugs: No Caffeine use: No Review of Systems is unable to be obtained Physical Examination - Vital Signs Temperature: 98.1 F Blood Pressure: 98/48 Pulse: 74 Respirations: 20 Pulse Ox (%): 85 - Physical Exam General: Other (Altered Mental state ) HEENT: Atraumatic, Normocephalic Neck: Supple, No LAD Respiratory: Diminished, Crackles/rales Cardiovascular: Normal pulses, Regular rate/rhythm, Normal S1 S2 Capillary refill: <2 Seconds Gastrointestinal: Soft and benign, W/out hepatosplenomegaly Musculoskeletal: No clubbing Integumentary: No rashes Neurological: Other (AMS +) - Studies Laboratory Data (last 24 hrs) 02/25/24 02/25/24 02/25/24 11:50 11:50 11:50 WBC 13.30 H Hgb 9.8 L Hct 32.5 L Plt Count 374 PT 12.1 INR 1.08 APTT 29.0 Sodium 138 Potassium 3.7 BUN 24 H Creatinine 0.57 Glucose 98 Assessment and Plan - Plan Acute hypoxic respiratory failure Intubated on mechanical ventilator support Will get an ABG in a.m. Monitor closely in ICU Pulmonology consulted Shock possibly due to hypovolemia Started on IV hydration Albumin Started on Levophed Titrate to MAP of more than 65 COPD and chronic hypoxic respiratory failure on home O2 Continue bronchodilators as needed Possible extubation in a.m. Gross ascites Left pleural effusion Status post laparoscopic Peritoneal Mass Biopsy Status post LEFT Thoracentesis Fluid studies Awaiting histopathology Pain control History of hypertension Held home medications and restart when more stable Anemia of chronic disease Monitor H&H closely No overt bleeding at this time GI/DVT prophylaxis Advanced directive full code Discharge Plan: Home Plan to discharge in: 48 Hours - Advance Directives Does patient have a Living Will: No Does patient have a Durable POA for Healthcare: No - Code Status/Comfort Care Code Status: Full Code Time Spent Managing Pts Care (In Minutes): 48
[2024-02-25] MEDS: Phenylephrine HCl 10 MG/ML 1 ML VIAL ONE (18:54)
[2024-02-25] MEDS: NA CHLORIDE 0.9% 1,000 ML IV ONE (19:19)
[2024-02-25 19:21] LABS: Absolute Basophils 0.1 K/uL (0-0.5); Absolute Eosinophils 0.1 K/uL (0-0.5); Absolute Lymphocytes (CBC) 1.4 K/uL (0.7-4.9); Absolute Monocytes 0.7 K/uL (0.1-1.3); Absolute Neutrophil 6.7 K/uL (1.8-8.0); Basophils % 0.7 % (0-1.3); Eosinophils % 0.7 % (0-4.4); Hematocrit 27.7 % (36.0-45.0); Hemoglobin 8.8 g/dL (12.0-15.0); Lymphocytes % 15.9 % (15.3-44.8); MCH 25.6 pg (27.0-35.0); MCHC 31.9 g/dL (32.0-36.0); MCV 80.3 fL (80-100); MPV 8.7 fL (7.6-11.3); Monocytes % 7.6 % (3.3-12.3); Neutrophils % 75.1 % (41.7-73.7); Nucleated Red Blood Cells % 0.3 % (0-0); Platelets 335 thou/uL (152-406); RBC Red Blood Cell Count 3.45 M/uL (3.86-4.86)
[2024-02-25 19:30] LABS: AST/SGOT 33 U/L (15-37); Albumin 1.7 g/dL (3.4-5.0); Albumin/Globulin Ratio 0.3 (1.1-1.8); Alkaline Phosphatase 212 U/L (45-117); Anion Gap 7.2 mEq/L (5.0-15.0); BUN Blood Urea Nitrogen 25 mg/dL (7-18); Bicarbonate 40 mEq/L (21-32); Bilirubin Total 0.5 mg/dL (0.2-1.0); Globulin 5.5 g/dL (2.3-3.5); Glomerular Filtration Rate 100 ml/min (=/>90); Glucose Level 80 mg/dL (74-106); Magnesium 1.8 mg/dL (1.6-2.4); Phosphorus 4.7 mg/dL (2.5-4.9); Potassium 4.2 mEq/L (3.5-5.1); Protein, Total 7.2 g/dL (6.4-8.2); Sodium Level 140 mEq/L (136-145)
[2024-02-25] MEDS: NOREPINEPHRINE 4 MG in D5W 250 ML IV SCH (19:45)
[2024-02-25 19:54] LABS: ALT/SGPT < 14 U/L (13-56)
[2024-02-25] MEDS ORDERED: propofoL 1,000 MG/100 ML VIAL IV SCH (20:00)
--- NOTE | 2024-02-25 20:02 | RAD REPORT ---
EXAMINATION: ONE VIEW CHEST XR CLINICAL INDICATION: s/p thoracentesis TECHNIQUE: Frontal chest projection is submitted. Examination is limited by patient positioning and t echnique. COMPARISON: 02/25/2024 FINDINGS: Tip of the endotracheal tube is at the level of the clavicular heads. This is approximately 1 cm abov e the level aortic arch. Moderate bilateral pulmonary opacities may represent pulmonary edema or ARDS. The heart is mildly enlarged in size. No measurable pneumothorax.
--- OUTSIDE RECORDS SUMMARY | 2024-02-25 20:14 | XMS REPORT | Clinical Summary ---
Author Name Unknown Organization [facility] Address [address] [place] [address] Care Team Providers Care Aircraft Parts Assembler Name Role Phone Baldev Larios MD Unavailable [phone] Garrick Smith RN Unavailable [phone] Garrick Smith RN Unavailable [phone] Encounters Date Type Department Care Team Description 02/16/2024 9:25 PM IRRIGATION TAX ASSESSOR COLLECTOR Ancillary Procedure Image Library [address] [place] [id number] Cancer 02/16/2024 9:20 PM IRRIGATION TAX ASSESSOR COLLECTOR Ancillary Procedure Image Library [address] [place] [address] [id number] Cancer 02/16/2024 9:15 PM IRRIGATION TAX ASSESSOR COLLECTOR Ancillary Procedure Image Library [address] [place] [address] [id number] Cancer 02/16/2024 9:10 PM IRRIGATION TAX ASSESSOR COLLECTOR Ancillary Procedure Image Library [address] [place] [address] [id number] Cancer 02/16/2024 9:05 PM IRRIGATION TAX ASSESSOR COLLECTOR Ancillary Procedure Image Library [address] [place] [address] [id number] Cancer 02/16/2024 9:00 PM IRRIGATION TAX ASSESSOR COLLECTOR Ancillary Procedure Image Library [address] [place] [address] [id number] Cancer 02/16/2024 8:55 PM IRRIGATION TAX ASSESSOR COLLECTOR Ancillary Procedure Image Library [address] [place] [address] 07857 Cancer 02/16/2024 8:50 PM IRRIGATION TAX ASSESSOR COLLECTOR Ancillary Procedure Image Library [address] [place] [address] 56786 Cancer 02/16/2024 8:45 PM IRRIGATION TAX ASSESSOR COLLECTOR Ancillary Procedure Image Library [address] [place] [address] [id number] Cancer 02/16/2024 8:40 PM IRRIGATION TAX ASSESSOR COLLECTOR Ancillary Procedure Image Library [address] [place] [address] 37808 Cancer 02/16/2024 8:35 PM IRRIGATION TAX ASSESSOR COLLECTOR Ancillary Procedure Image Library [address] [place] [address] [id number] Cancer 02/16/2024 8:30 PM IRRIGATION TAX ASSESSOR COLLECTOR Ancillary Procedure Image Library [address] [place] [address] [id number] Cancer 02/16/2024 8:25 PM IRRIGATION TAX ASSESSOR COLLECTOR Ancillary Procedure Image Library [address] [place] [address] [id number] Cancer 02/16/2024 8:20 PM IRRIGATION TAX ASSESSOR COLLECTOR Ancillary Procedure Image Library [address] [place] [address] [id number] Cancer 02/16/2024 8:15 PM IRRIGATION TAX ASSESSOR COLLECTOR Ancillary Procedure Image Library [address] [place] [address] [id number] Cancer 02/16/2024 8:10 PM IRRIGATION TAX ASSESSOR COLLECTOR Ancillary Procedure Image Library [address] [place] [address] [id number] Cancer 02/16/2024 8:05 PM IRRIGATION TAX ASSESSOR COLLECTOR Ancillary Procedure Image Library [address] [place] [address] [id number] Cancer 02/16/2024 8:00 PM IRRIGATION TAX ASSESSOR COLLECTOR Ancillary Procedure Image Library [address] [place] [address] 56249 Cancer 02/11/2024 [facility] [address] [place] [address] Garrick Smith RN 02/10/2024 [facility] [address] [facility] [place] [address] Garrick Smith RN 02/09/2024 [facility] [address] [place] [address] Garrick Smith RN after 02/25/2023 Social History Tobacco Use Types Packs/Day Years Used Date Smoking Tobacco: Never Assessed Comments Unknown Sex and Gender Information Value Date Recorded Sex Assigned at Not on file Legal Sex Female 4:16 PM CDT Gender Identity Not on file Sexual Orientation Not on file Plan of Treatment Health Maintenance Due Date Last Done Comments COVID-19 Vaccine (2023-2 5 season) 2023 Influenza Vaccine (#1) 2023 Pneumococcal Vaccine: Pediat rics (0 to 5 Years) and At-Risk Patients (6 to 64 Years) Aged Out No longer eligi ble based on patient's age to complete this topic Procedures Procedure Name Priority Date/Time Associated Diagnosis Comments OSI CT CHEST Routine 02/05/2024 9:10 PM CDT Cancer OSI PET CT SKULL TO MID THIGH Routine 02/04/2024 9:11 PM CDT Cancer OSI CT CHEST Routine 01/26/2024 9:11 PM CDT Cancer OSI CHEST Routine 01/21/2024 9:11 PM CDT Cancer OSI CHEST Routine 01/02/2024 9:11 PM CDT Cancer OSI US CHEST Routine 01/01/2024 9:12 PM CDT Cancer OSI CT CHEST Routine 01/01/2024 9:12 PM CDT Cancer OSI CHEST Routine 01/01/2024 9:12 PM CDT Cancer OSI CHEST Routine 01/01/2024 9:11 PM CDT Cancer OSI CHEST Routine 12/30/2023 9:12 PM CDT Cancer OSI CHEST Routine 12/21/2023 9:13 PM CDT Cancer OSI CHEST Routine 12/21/2023 9:13 PM CDT Cancer OSI CHEST Routine 12/03/2023 9:13 PM CDT Cancer OSI CHEST Routine 12/03/2023 9:13 PM CDT Cancer OSI CT CHEST Routine 12/01/2023 9:13 PM CDT Cancer OSI CHEST Routine 11/30/2023 9:14 PM CDT Cancer OSI CHEST Routine 11/29/2023 9:14 PM CDT Cancer OSI CHEST Routine 11/25/2023 9:14 PM CDT Cancer after 02/25/2023 Results * OSI CT Chest (02/05/2024 9:10 PM CDT) Only the most recent of4 resultswithin the time period is included. Narrative Systemgenerated, Documentation - 02/16/2024 9:10 PM IRRIGATION TAX ASSESSOR COLLECTOR Study acquired at another institution. For comparison only. No [facility] originated interpretation requested or available. Baldev Larios MD IMG OUTSIDE IMAGE ORDER LAMINE Final Result * OSI PET CT Skull to Mid Thigh (02/04/2024 9:11 PM CDT) Narrative Systemgenerated, Documentation - 02/16/2024 9:11 PM IRRIGATION TAX ASSESSOR COLLECTOR Study acquired at another institution. For comparison only. No [place] originated interpretation requested or available. us Baldev LAST OUTSIDE IMAGE ORDER LAMINE Final Result * OSI Chest (01/21/2024 9:11 PM CDT) Only the most recent of12 resultswithin the time period is included. Narrative Systemgenerated, Documentation - 02/16/2024 9:11 PM IRRIGATION TAX ASSESSOR COLLECTOR Study acquired at another institution. For comparison only. No MD [place] originated interpretation requested or available. Baldev LAST OUTSIDE IMAGE ORDER LAMINE Final Result * OSI US Chest (01/01/2024 9:12 PM CDT) Narrative Systemgenerated, Documentation - 02/16/2024 9:12 PM IRRIGATION TAX ASSESSOR COLLECTOR Study acquired at another institution. For comparison only. No MD [place] originated interpretation requested or available. Baldev LAST OUTSIDE IMAGE ORDER LAMINE Final Result after 02/25/2023 Insurance [employer] MEDICARE HMO A[employer] MEDICARE HMO Care Teams Aircraft Parts Assembler Relationship Specialty Start Date End Date Baldev Larios MD [address] [place] [address] PCP - External Referring General Surgery 02/06/24 Garrick Smith RN [address] [place] [phone] [email or web address] Intake Nurse Navigator Nursing 02/08/24 02/08/24 Garrick Smith RN [address] [place] [id number] [email or web address] Intake Nurse Navigator Nursing 02/10/24 02/10/24
[2024-02-25] MEDS: ALBUMIN HUMAN 25% 100 ML IV ONE (20:49)
[2024-02-25] MEDS: Mupirocin NASAL 2 APPL/1 GM TUBE NAS SCH (20:51)
[2024-02-25] MEDS: NA CHLORIDE 0.9% 500 ML ONE (20:53)
[2024-02-25] MEDS: DEXMEDETOMIDINE HCL 200 MCG/2 ML VIAL ONE (20:54)
[2024-02-25] MEDS: DEXMEDETOMIDINE HCL IV SCH (21:07)
[2024-02-25] MEDS: NA CHLORIDE 0.9% IV SCH (21:07)
[2024-02-25] MEDS: ALBUMIN HUMAN 25% 50 ML IV ONE (21:16)
[2024-02-26] MEDS: FENTANYL CITR 100 MCG/2 ML IV PRN (02:25)
--- NOTE | 2024-02-26 03:00 | OP ---
Date of Procedure: 02/25/2024 Surgeon: Baldev Larios MD, Preoperative Diagnosis: Peritoneal metastatic cancer/malignant pleural effusion. Postoperative Diagnosis: Peritoneal metastatic cancer/malignant pleural effusion. Procedure Performed: 1.Laparoscopic peritoneal mass biopsy. 2.Left thoracentesis. Anesthesia: General endotracheal plus local with 1% lidocaine with epinephrine. Estimated Blood Loss: Less than 10 cc. Specimen: Peritoneal mass. Findings: 1.Blood tinged ascites, 650 cc removed. 2.Blood tinged left pleural effusion 1.5 L approximately removed. Bloody clear fluid returned from both sites very similar in appearance. Complications: None. Disposition: The patient was transferred to recovery room in good condition. Procedure In Detail: After informed consent was obtained, patient brought to the operating room, pre pped and draped in the usual sterile fashion after adequate anesthesia achieved. The patient remaine d on the right side down. I anesthetized an area of the left 4th to 5th intercostal space, where pre vious PleurX catheter was placed and going over the rib. I anesthetized the skin and the track. I lo nichols made an incision overlying the area and placed the thoracentesis pigtail catheter into the chest cavity, retrieved approximately 1.5 L of bloody predominantly straw-colored fluid at this time. Afte r this was completed, the area was cleansed once again and closed with a simple Band-Aid. I then had the patient re-prepped and draped in the usual fashion in supine position. After adequate anesthesi a was achieved, I anesthetized an area in the supraumbilical position down the subcutaneous tissue. A 5 mm 0-degree optical trocar was introduced in the abdomen without evidence of complication. Insuf flation obtained to 10 mm initially and then ultimately up to 15 mm after her blood pressures were to lerated. Peritoneal metastatic lesion was appreciated. I simply grasped it and it was fungating, fr iable, exophytic type lesion. I simply scooped this into an EndoCatch bag, which was placed through a 12 mm trocar placed at the left mid abdomen. At this point, this was removed, sent off for pathol ogic examination. The area was inspected at this point, hemostasis was achieved without any maneuver s. I then withdrew approximately 650 cc of ascites, which was the same bloody straw-colored fluid fr om the abdominal compartment for allow for adequate closure. At this point, I closed the 12 mm troca r site using a Jesus-Monet suture passer with 0 Vicryl in interrupt fashion with good approximati on tissues. The abdomen was desufflated under direct visualization without evidence of complication. Remaining incisions were all copiously irrigated and closed with interrupted ned and a sterile dressing placed over top. Abdominal binder applied. The patient tolerated procedure without evidenc e of complication. Transferred to PACU in good condition. All counts correct at the end of the case . NIALL/DAVID Voice ID: [id number] Report ID: [id number]
[2024-02-26 05:29] LABS: Magnesium 1.6 mg/dL (1.6-2.4); Potassium 3.4 mEq/L (3.5-5.1)
[2024-02-26] MEDS: POTASSIUM CL 40 MEQ in NA CHLORIDE 0.9% 500 ML IV SCH (06:00)
[2024-02-26] MEDS: MAGNESIUM SULFATE 1 gm IVPB 1 GM/100 ML BAG IV ONE (06:41)
[2024-02-26] MEDS: KCL 20 MEQ/100 mL IVPB 20 MEQ/100 ML BAG IV SCH (06:52)
--- NOTE | 2024-02-26 07:15 | P.PN ---
Date of Service: 02/26/24 Subjective: remains sedated on vent; desat to 80s this morning when trying to lower FiO2 currently on 60% FiO2 unable to wean sedation overnight BP low overnight, currently in 100s states no particular change in bowel/bladder habits lately. Patient did not report any urinary complaints to him urine does appear cloudy in johnston tubing ROS: unable to fully obtain d/t sedation Physical Exam: GEN: intubated, lightly sedated, moving extremities HEENT: Normal conjunctiva, sclera anicteric CV: Regular rate and rhythm, no edema Pulm: Intubated on mechanical vent, 60% FiO2 ABD: soft, nontender, nondistended PICC in place, Johnston in place cloudy urine Problem List: Shock, hypovolemic Hypotension Peritoneal metastatic cancer s/p biopsy (02/24) Malignant Left Pleural effusion s/p thoracentesis (02/24) Acute hypoxic respiratory failure; on home O2 Hypertension COPD, chronic Hypothyroidism Anxiety Chrohn's disease GERD Hx prior CVA Shock, hypovolemic Hypotension Peritoneal metastatic cancer s/p biopsy (02/24) Malignant Left Pleural effusion s/p thoracentesis (02/24) Acute hypoxic respiratory failure; on home O2 Patient underwent peritoneal mass biopsy with left thoracentesis with Dr. Tk hyde on 02/24. ~1.5L removed from effusion, ~650mL ascites fluid removed post-operatively, patient was hypoxic and became hypotensive - Didn't meat criteria to extubate CXR (02/24): Mod-Large loculated left pleural effusion with mild-mod pulm edema. Moderate Cardiomegaly repeat CXR (02/25): some improvement of aeration in right upper to midlung Admitted to ICU and started on pressors remains sedated on production mechanic vent; 60% FiO2 wean sedation as tolerated desat/BP dropped when attempting to decrease oxygen/sedation today . General surgery, Pulm consulted check ABG continue IV fluids s/p albumin infusion 02/24 suspect hypotension secondary to hypovolemia and medication effect - all occurred after anesthesia/procedure. May need further albumin KUB ordered to further eval check UA - urine is cloudy. denies any complaints that patient brought up afebrile Duonebs Hypertension hold antihypertensives for now on pressors, BP improving wean sedation as tolerated Chronic anemia Daily labs. Monitor H&H. COPD, chronic Hypothyroidism Anxiety Chrohn's disease GERD Hx prior CVA confirm home meds, restart as appropriate VTE: SCD Code: Full Continue ICU level of care Time Spent Managing Pts Care (In Minutes): 55 I personally spent 35 minutes of critical care time at patient's bedside, in discussion with family, nursing staff, RT
[2024-02-26] MEDS: NA CHLORIDE 0.9% 500 ML IV ONE (07:44)
[2024-02-26] MEDS ORDERED: HALOPERIDOL LACT 5 MG/ML INJ IV PRN (07:45)
[2024-02-26] MEDS ORDERED: LORazepam 2 MG/ML VIAL IV PRN (07:45)
[2024-02-26] MEDS ORDERED: NA CHLORIDE 0.9% 250 ML IV PRN (07:45)
[2024-02-26] MEDS ORDERED: MIDAZOLAM HCL 2 MG/2 ML INJ IV PRN (07:45)
--- NOTE | 2024-02-26 08:03 | RAD REPORT ---
EXAMINATION: ONE VIEW CHEST XR CLINICAL INDICATION: Female, 58 years old.,intubated, hypoxia, eval effusion, r/o pneumo TECHNIQUE: Frontal chest projection is submitted. Examination is limited by patient positioning and t echnique. COMPARISON: 02/25/2024 FINDINGS: Left arm PICC in place with catheter tip at the level of the distal SVC. Endotracheal tube unchanged in position. Mildly improved aeration in the right upper to midlung, with otherwise stable central congestive changes and fluffy airspace opacities with layering effusions larger on the left. No pneu mothorax. The heart is normal in size. Mediastinal contours are unchanged. IMPRESSION: Satisfactory left arm PICC positioning. Otherwise stable findings apart from some improvement of aeration in the right upper to midlung.
[2024-02-26 08:27] LABS: Absolute Basophils 0.1 K/uL (0-0.5); Absolute Eosinophils 0.2 K/uL (0-0.5); Absolute Lymphocytes (CBC) 1.8 K/uL (0.7-4.9); Absolute Monocytes 0.7 K/uL (0.1-1.3); Absolute Neutrophil 8.2 K/uL (1.8-8.0); Eosinophils % 1.4 % (0-4.4); Hematocrit 25.3 % (36.0-45.0); Hemoglobin 8.2 g/dL (12.0-15.0); Lymphocytes % 16.3 % (15.3-44.8); MCH 25.7 pg (27.0-35.0); MCHC 32.4 g/dL (32.0-36.0); MCV 79.3 fL (80-100); MPV 8.5 fL (7.6-11.3); Monocytes % 6.1 % (3.3-12.3); Neutrophils % 75.2 % (41.7-73.7); Nucleated Red Blood Cells % 0.1 % (0-0); Platelets 341 thou/uL (152-406); RBC Red Blood Cell Count 3.19 M/uL (3.86-4.86); Red Cell Distribution Width 18.9 % (12.1-15.2)
[2024-02-26 08:45] LABS: ALT/SGPT < 14 U/L (13-56); AST/SGOT 31 U/L (15-37); Albumin 1.8 g/dL (3.4-5.0); Albumin/Globulin Ratio 0.4 (1.1-1.8); Alkaline Phosphatase 196 U/L (45-117); Anion Gap 5.5 mEq/L (5.0-15.0); BUN Blood Urea Nitrogen 23 mg/dL (7-18); Bicarbonate 37 mEq/L (21-32); Bilirubin Total 0.9 mg/dL (0.2-1.0); Glomerular Filtration Rate 99 ml/min (=/>90); Glucose Level 91 mg/dL (74-106); Magnesium 1.7 mg/dL (1.6-2.4); Potassium 3.5 mEq/L (3.5-5.1); Protein, Total 6.8 g/dL (6.4-8.2); Sodium Level 140 mEq/L (136-145)
--- NOTE | 2024-02-26 11:50 | P.CNS ---
Date of Consult: 02/26/24 Reason for Consult: Respiratory failure patient is on a ventilator Chief Complaint: Resp Failure History of Present Illness: Patient is is 58 years of age with a history of metastatic cancer chronic malignant pleural effusion pulled out a Pleurx catheter Sequent PET scan showed disseminated disease including diffuse peritoneal deposit underwent surgical procedure for excisional biopsy of the intra-abdominal lesion and drainage of the pleural effusion seizure was unable to extubate the patient she was then transferred to the ICU remained hypotensive on a ventilator currently patient is doing better stable doing fluid boluses Allergies metronidazole [From Flagyl] Allergy (Severe, Verified 02/25/24 11:15) Anaphylaxis adhesive tape Allergy (Verified 02/25/24 11:15) Rash Home Medications: Aspirin [Aspirin EC 325 MG] 1 tab PO DAILY 11/25/23 Atorvastatin Calcium [Lipitor] 1 tab PO BEDTIME 11/25/23 Krill/[place]-3/Dha/Epa/Lipids [[place]-3 Krill Oil 500 mg Sfgl] 1 cap PO DAILY 11/25/23 Levothyroxine [Synthroid*] 1 tab PO DAILY 11/25/23 Omeprazole [Prilosec] 1 cap PO [id number] 11/25/23 Acetaminophen with Codeine [Acetaminophen-Cod #3 Tablet] 1 tab PO PRN PRN 12/31/23 Cholecalciferol (Vitamin D3) [Vitamin D3] 50 mcg PO DAILY 12/31/23 Duloxetine HCl 60 mg PO DAILY 12/31/23 Fluticasone/Umeclidin/Vilanter [Trelegy Ellipta 200-62.5-25] 1 puff NEB DAILY 12/31/23 Gabapentin 600 mg PO BID PRN 12/31/23 hydrOXYzine HCL [Atarax*] 25 mg PO PRN PRN 12/31/23 - Past Medical/Surgical History Diabetic: No -: Hypertension -: strokes -: Bipolar -: pneumonia -: Fibromalgia, -: arthitis -: HYpothyridism -: GERD -: Crohn's disease -: Tunbal ligition -: partial hysterectomy -: brain biopsy - Family History Father History Unknown: Yes Medical History: Cancer Mother History Unknown: Yes Medical History: Cancer - Social History Smoking Status: Former smoker, Unknown if ever smoked Alcohol use: No CD- Drugs: No Caffeine use: No Place of Residence: Home Review of Systems is unable to be obtained Physical Examination Temp Pulse Resp BP Pulse Ox 97.9 F 69 18 88/70 L 94 02/26/24 07:00 02/26/24 11:00 02/26/24 11:00 02/26/24 11:00 02/26/24 11:00 General: Unresponsive Respiratory: Clear to auscultation bilaterally, Diminished Cardiovascular: No edema, Normal pulses, Regular rate/rhythm Laboratory Data (last 24 hrs) 02/26/24 02/26/24 02/26/24 08:15 08:15 04:35 WBC 10.90 Hgb 8.2 L Hct 25.3 L Plt Count 341 PT INR APTT Sodium 140 Potassium 3.5 3.4 L D BUN 23 H Creatinine 0.69 Glucose 91 Phosphorus 3.0 Magnesium 1.7 1.6 Total Bilirubin 0.9 AST 31 ALT < 14 Alkaline Phosphatase 196 H 02/25/24 02/25/24 02/25/24 18:58 18:58 11:50 WBC 8.90 Hgb 8.8 L D Hct 27.7 L Plt Count 335 PT INR APTT Sodium 140 138 Potassium 4.2 D 3.7 BUN 25 H 24 H Creatinine 0.68 0.57 Glucose 80 98 Phosphorus 4.7 Magnesium 1.8 Total Bilirubin 0.5 AST 33 ALT < 14 Alkaline Phosphatase 212 H 02/25/24 02/25/24 11:50 11:50 WBC 13.30 H Hgb 9.8 L Hct 32.5 L Plt Count 374 PT 12.1 INR 1.08 APTT 29.0 Sodium Potassium BUN Creatinine Glucose Phosphorus Magnesium Total Bilirubin AST ALT Alkaline Phosphatase - Problems (1) Respiratory failure Current Visit: Yes Status: Acute Plan: Patient is 58 years of age admitted for surgery patient had biopsy done of the intra-abdominal mass has malignant pleural effusion pleural effusion was drained had a bloody ascites currently she is on a ventilator very comfortable low-dose of Levophed plan to give fluid boluses wean off and extubate chest x-ray review shows bilateral pleural effusion she has loculated effusion on the left side labs chemistries reviewed patient has mild microcytic anemia. Alkaline phosphatase Qualifiers: Chronicity: acute
[2024-02-26 13:47] LABS: Specific Gravity 1.028 (1.005-1.030); Sqamous Epithelial None Seen /HPF (None Seen); Urine Bacteria 20-50 /HPF (<20); Urine Bilirubin 1+ (Negative); Urine Blood Negative (Negative); Urine Clarity Extremely Turbid (Clear); Urine Color Yellow (Yellow); Urine Culture Reflex Order REFLEXED; Urine Glucose NEGATIVE (Negative); Urine Ketones 2+ (Negative); Urine Microscopic Reflex YN ORDER UMIC; Urine Mucus 1+ /HPF (None Seen); Urine Nitrite NEGATIVE (Negative); Urine Protein 1+ (Negative); Urine Urobilinogen 3+ (Normal); Urine WBC >50 /HPF (<5)
[2024-02-26] MEDS: CEFTRIAXONE 1,000 MG in NA CHLORIDE 0.9% 50 ML IVPB ONE (18:28)
[2024-02-27] MEDS: IPRATROPIUM BROM 0.5MG/2.5ML NEB PRN (02:25)
[2024-02-27] MEDS: ALBUTEROL 2.5 MG/3 ML NEB SOL NEB PRN (02:25)
[2024-02-27 05:39] LABS: Absolute Basophils 0.1 K/uL (0-0.5); Absolute Eosinophils 0.2 K/uL (0-0.5); Absolute Lymphocytes (CBC) 1.3 K/uL (0.7-4.9); Absolute Monocytes 0.9 K/uL (0.1-1.3); Absolute Neutrophil 10.6 K/uL (1.8-8.0); Basophils % 0.5 % (0-1.3); Eosinophils % 1.9 % (0-4.4); Hematocrit 28.2 % (36.0-45.0); Hemoglobin 8.9 g/dL (12.0-15.0); Lymphocytes % 10.2 % (15.3-44.8); MCH 25.7 pg (27.0-35.0); MCHC 31.6 g/dL (32.0-36.0); MCV 81.2 fL (80-100); MPV 8.3 fL (7.6-11.3); Neutrophils % 80.4 % (41.7-73.7); Nucleated Red Blood Cells % 0.2 % (0-0); Platelets 316 thou/uL (152-406); RBC Red Blood Cell Count 3.47 M/uL (3.86-4.86); Red Cell Distribution Width 19.3 % (12.1-15.2)
[2024-02-27 06:01] LABS: AST/SGOT 38 U/L (15-37); Albumin 1.7 g/dL (3.4-5.0); Albumin/Globulin Ratio 0.3 (1.1-1.8); Alkaline Phosphatase 228 U/L (45-117); Anion Gap 3.8 mEq/L (5.0-15.0); BUN Blood Urea Nitrogen 18 mg/dL (7-18); Bicarbonate 37 mEq/L (21-32); Bilirubin Total 0.5 mg/dL (0.2-1.0); Globulin 5.4 g/dL (2.3-3.5); Glomerular Filtration Rate 107 ml/min (=/>90); Glucose Level 94 mg/dL (74-106); Phosphorus 3.9 mg/dL (2.5-4.9); Potassium 3.8 mEq/L (3.5-5.1); Protein, Total 7.1 g/dL (6.4-8.2); Sodium Level 141 mEq/L (136-145)
[2024-02-27 06:02] LABS: ALT/SGPT < 14 U/L (13-56)
[2024-02-27] MEDS: POTASSIUM 25 MEQ EFFERV TAB PO ONE (06:45)
--- NOTE | 2024-02-27 08:47 | P.PN ---
Date of Service: 02/27/24 Subjective: off sedation and extubated yesterday desatting overnight, oxygen increased overnight to 9-10L more awake/alert. Responding to questions appropriately reports UTI symptoms for last 3-4 days afebrile ROS: 10 point ROS as noted above, otherwise negative Physical Exam: GEN: Alert, oriented x3, NAD HEENT: Normal conjunctiva, sclera anicteric CV: Regular rate and rhythm, no edema Pulm: mild-labored respirations on 10L HFNC, diminished bilaterally ABD: soft, nontender, nondistended PICC in place, Hammond in place cloudy urine Problem List: Shock, hypovolemic Hypotension Peritoneal metastatic cancer s/p biopsy (02/24) Malignant Left Pleural effusion s/p thoracentesis (02/24) Acute hypoxic respiratory failure; on home O2 Hypertension COPD, chronic Hypothyroidism Anxiety Chrohn's disease GERD Hx prior CVA Shock, hypovolemic Hypotension Peritoneal metastatic cancer s/p biopsy (02/24) Malignant Left Pleural effusion s/p thoracentesis (02/24) Acute hypoxic respiratory failure; on home O2 Patient underwent peritoneal mass biopsy with left thoracentesis with Dr. Larios on 02/24. ~1.5L removed from effusion, ~650mL ascites fluid removed post-operatively, patient was hypoxic and became hypotensive - Didn't meat criteria to extubate CXR (02/24): Mod-Large loculated left pleural effusion with mild-mod pulm edema. Moderate Cardiomegaly repeat CXR (02/25): some improvement of aeration in right upper to midlung off sedation and extubated 02/25 ~noon patient had oxygen increased to ~9-10L HFNC overnight due oxygen desaturation repeat CXR ordered to further eval suspect hypotension secondary to hypovolemia and medication effect - all occurred after anesthesia/procedure. May need further albumin General surgery, Pulm consulted continue IV fluids s/p albumin infusion 02/24 Duonebs UA suspicious for UTI although urine culture preliminary without growth. reports some urinary symptoms for 3-4 days, unable to elaborate Start empiric rocephin for now (02/26-) follow urine culture afebrile Hypertension off pressors since 02/25 ~noon BP stable. Currently in 100s hold home antihypertensives for now Chronic anemia Daily labs. Monitor H&H. COPD, chronic Hypothyroidism Anxiety Chrohn's disease GERD Hx prior CVA confirm home meds, restart as appropriate VTE: SCD Code: Full Continue ICU level of care Time Spent Managing Pts Care (In Minutes): 55
[2024-02-27] MEDS ORDERED: IPRATROPIUM BROM 0.5MG/2.5ML NEB PRN (11:04)
[2024-02-27] MEDS: ARFORMOTEROL TARTRATE 15 MCG/2 ML VIAL.NEB NEB SCH (11:07)
--- NOTE | 2024-02-27 11:07 | P.PN ---
Subjective Date of Service: 02/27/24 Chief Complaint: Resp Failure Subjective: Improving (Patient is doing well she was extubated yesterday denies any chest pain or abdominal pain) Review of Systems General: Weakness Respiratory: Shortness of Breath Physical Examination - Vital Signs Temperature: 97.1 F Blood Pressure: 109/94 Pulse: 92 Respirations: 30 Pulse Ox (%): 97 - Physical Exam General: Alert, In no apparent distress, Oriented x3 Neck: Supple Respiratory: Clear to auscultation bilaterally Cardiovascular: No edema, Regular rate/rhythm - Studies Laboratory Data (last 24 hrs) 02/27/24 02/27/24 05:15 05:15 WBC 13.20 H Hgb 8.9 L D Hct 28.2 L Plt Count 316 Sodium 141 Potassium 3.8 BUN 18 Creatinine 0.51 L Glucose 94 Phosphorus 3.9 Magnesium 2.0 Total Bilirubin 0.5 AST 38 H ALT < 14 Alkaline Phosphatase 228 H Assessment And Plan - Current Problems (Diagnosis) (1) Respiratory failure Current Visit: Yes Status: Acute Plan: Patient is doing well she was extubated yesterday is any chest pain or abdominal discomfort titrate sat to 90% ambulate patient is no evidence of infection urine culture is negative resume her home medications continue spirometry discharge planning patient has home O2 Qualifiers: Chronicity: acute
[2024-02-27] MEDS: LEVOTHYROXINE SOD 0.075 MG TAB PO SCH (12:03)
[2024-02-27] MEDS: hydrOXYzine HCL 25 MG TAB PO SCH (12:03)
[2024-02-27] MEDS: DULOXETINE 30 MG CAP PO SCH (12:03)
--- NOTE | 2024-02-27 12:50 | RAD REPORT ---
EXAMINATION: ONE VIEW CHEST XR CLINICAL INDICATION: Female, 58 years old.,extubated, f/u effusion/pneumonia TECHNIQUE: Frontal chest projection is submitted. Examination is limited by patient positioning and t echnique. COMPARISON: 02/26/2024 FINDINGS: Decreased inspiratory effort. Otherwise stable central and bibasilar patchy airspace opacities and bi lateral pleural effusions larger on the left. Interval extubation. Left arm PICC appears slightly retracted now tip projects over the proximal SVC. No pneumothorax The heart is normal in size. Media stinal contours are unchanged. IMPRESSION: Interval extubation. Mildly distracted left arm PICC. Otherwise stable findings most suggestive of pulmonary edema, allowing for decreased inspiratory effo rt.
[2024-02-27] MEDS: CEFTRIAXONE 1,000 MG in NA CHLORIDE 0.9% 50 ML IVPB SCH (17:14)
[2024-02-27] MEDS: FUROSEMIDE 40 MG/4 ML VIAL IV ONE (17:50)
[2024-02-27] MEDS: LORazepam 2 MG/ML VIAL IV PRN (17:51)
[2024-02-27] MEDS: ATORVASTATIN 80 MG TAB PO SCH (20:21)
[2024-02-27] MEDS: Oxycodone HCl/Acetaminophen 5/325 MG TAB PO PRN (21:40)
[2024-02-28 05:31] LABS: Absolute Basophils 0.1 K/uL (0-0.5); Absolute Eosinophils 0.3 K/uL (0-0.5); Absolute Lymphocytes (CBC) 1.3 K/uL (0.7-4.9); Absolute Monocytes 0.9 K/uL (0.1-1.3); Absolute Neutrophil 9.5 K/uL (1.8-8.0); Basophils % 0.7 % (0-1.3); Eosinophils % 2.5 % (0-4.4); Hematocrit 27.1 % (36.0-45.0); Hemoglobin 8.5 g/dL (12.0-15.0); MCH 25.4 pg (27.0-35.0); MCHC 31.3 g/dL (32.0-36.0); MCV 81.1 fL (80-100); MPV 8.3 fL (7.6-11.3); Monocytes % 7.2 % (3.3-12.3); Neutrophils % 78.6 % (41.7-73.7); Nucleated Red Blood Cells % 0.1 % (0-0); Platelets 312 thou/uL (152-406); RBC Red Blood Cell Count 3.34 M/uL (3.86-4.86); Red Cell Distribution Width 19.2 % (12.1-15.2)
[2024-02-28 05:46] LABS: Anion Gap 4.7 mEq/L (5.0-15.0); Magnesium 1.9 mg/dL (1.6-2.4); Potassium 3.7 mEq/L (3.5-5.1)
[2024-02-28 06:27] LABS: Phosphorus 3.6 mg/dL (2.5-4.9)
[2024-02-28] MEDS: PANTOPRAZOLE 40MG TABLET PO SCH (06:45)
[2024-02-28] MEDS: POTASSIUM 25 MEQ EFFERV TAB PO ONE (06:45)
--- NOTE | 2024-02-28 07:24 | RAD REPORT ---
EXAMINATION: ONE VIEW CHEST XR CLINICAL INDICATION: HYPOXIA, PULMONARY EDEMA TECHNIQUE: Frontal chest projection is submitted. Examination is limited by patient positioning and t echnique. COMPARISON: 02/27/2024 FINDINGS: Moderate bilateral pulmonary opacities are present, greater on the left, unchanged. The heart is mode rately enlarged in size. Left-sided PICC line is tip in the SVC. IMPRESSION: Moderate bilateral pulmonary opacities are unchanged likely representing pulmonary edema or pneumonia .
--- NOTE | 2024-02-28 08:28 | P.PN ---
Date of Service: 02/28/24 Subjective: more tachypneic yesterday evening. tolerated BiPAP for ~6 hours overnight felt breathing slightly improved after BiPAP minimal to no appetite recently BP soft in 90-100s systolic afebrile ROS: 10 point ROS as noted above, otherwise negative Physical Exam: GEN: Alert, oriented x3 CV: Regular rate and rhythm, trace pedal edema Pulm: mild-labored respirations on 10L HFNC / BiPAP at night, diminished bilaterally ABD: soft, nontender, nondistended PICC in place, Hammond in place Problem List: Shock, hypovolemic Hypotension Peritoneal metastatic cancer s/p biopsy (02/24) Malignant Left Pleural effusion s/p thoracentesis (02/24) Acute hypoxic respiratory failure; on home O2 Hypertension COPD, chronic Hypothyroidism Anxiety Chrohn's disease GERD Hx prior CVA Shock, hypovolemic Hypotension Peritoneal metastatic cancer s/p biopsy (02/24) Malignant Left Pleural effusion s/p thoracentesis (02/24) Acute hypoxic respiratory failure; on home O2 Patient underwent peritoneal mass biopsy with left thoracentesis with Dr. Larios on 02/24. ~1.5L removed from effusion, ~650mL ascites fluid removed post-operatively, patient was hypoxic and became hypotensive - Didn't meat criteria to extubate CXR (02/24): Mod-Large loculated left pleural effusion with mild-mod pulm edema. Moderate Cardiomegaly repeat CXR (02/25): some improvement of aeration in right upper to midlung Repeat CXR (02/27): unchanged mod pulmonary opacities, likely pulmonary edema vs pneumonia off sedation and extubated 02/25 ~noon suspect hypotension secondary to hypovolemia and medication effect - all occurred after anesthesia/procedure. May need further albumin patient more tachypneic yesterday pm; oxygen increased overnight and placed on BiPAP. Tolerated BiPAP for ~6 hours overnight. responded well to lasix yesterday; another dose of IV lasix 20 mg x1 ordered for this morning s/p albumin infusion 02/24; albumin x1 ordered 02/27 with lasix General surgery, Pulm consulted UA suspicious for UTI although urine culture with no growth. reports some urinary symptoms for 3-4 days, unable to elaborate continue empiric rocephin for now (02/26-) Hypertension off pressors since 02/25 ~noon BP stable. Currently in 100s hold home antihypertensives for now Chronic anemia Daily labs. Monitor H&H. COPD, chronic Hypothyroidism Anxiety Chrohn's disease GERD Hx prior CVA confirm home meds, restart as appropriate VTE: lovenox Code: Full Continue ICU level of care Time Spent Managing Pts Care (In Minutes): 55
[2024-02-28] MEDS: KRILL PO SCH (08:30)
[2024-02-28] MEDS: EPA PO SCH (08:30)
[2024-02-28] MEDS: DHA PO SCH (08:30)
[2024-02-28] MEDS: OMEGA PO SCH (08:30)
[2024-02-28] MEDS: LIPIDS PO SCH (08:30)
[2024-02-28] MEDS: FLUTICASONE IH SCH (09:00)
[2024-02-28] MEDS: VILANTER IH SCH (09:00)
[2024-02-28] MEDS: UMECLIDIN IH SCH (09:00)
[2024-02-28] MEDS: ALBUMIN HUMAN 25% 100 ML IV ONE (09:02)
[2024-02-28] MEDS: FUROSEMIDE 20 MG/ 2ML VIAL IV ONE (09:02)
--- NOTE | 2024-02-28 09:45 | P.PN ---
Subjective Date of Service: 02/28/24 Chief Complaint: Resp Failure Subjective: Improving (Patient is improving required BiPAP yesterday is any chest pain or abdominal discomfort) Review of Systems General: Weakness Respiratory: Shortness of Breath Physical Examination - Vital Signs Temperature: 98.0 F Blood Pressure: 108/73 Pulse: 97 Respirations: 27 Pulse Ox (%): 91 - Physical Exam General: Alert, In no apparent distress, Oriented x3 Respiratory: Clear to auscultation bilaterally, Diminished (Diminished on the left side) - Studies Laboratory Data (last 24 hrs) 02/28/24 02/28/24 05:10 05:10 WBC 12.10 H Hgb 8.5 L Hct 27.1 L Plt Count 312 Sodium 140 Potassium 3.7 BUN 13 Creatinine 0.48 L Glucose 85 Phosphorus 3.6 Magnesium 1.9 Microbiology Data (last 24 hrs): 02/26/24 12:52 Catheterized Urine [place] Count - Final No growth. 02/26/24 12:52 Catheterized Urine - Final No growth. Assessment And Plan - Current Problems (Diagnosis) (1) Respiratory failure Current Visit: Yes Status: Acute Plan: Patient is currently doing well this morning she is eating and drinking denies any chest pain some shortness of breath chest x-ray shows some location on both sides of the hemithorax on the left side this is I suspect may have a combination of effusion and atelectasis urine culture is negative and was started on some Lasix with albumin also ordered an echocardiogram check thyroid function test patient has disseminated cancer awaiting pathology report she has pulled out a Pleurx catheter before has loculated effusion on the left side continue with incentive spirometry Qualifiers: Chronicity: acute
[2024-02-28] MEDS: ENSURE ENLIVE 237 ML CAN PO SCH (13:22)
[2024-02-28] MEDS: ENOXAPARIN 40 MG/0.4 ML SQ SCH (17:13)
[2024-02-29 04:56] LABS: Absolute Eosinophils 0.2 K/uL (0-0.5); Absolute Lymphocytes (CBC) 1.2 K/uL (0.7-4.9); Absolute Monocytes 0.9 K/uL (0.1-1.3); Basophils % 0.3 % (0-1.3); Eosinophils % 1.7 % (0-4.4); Hematocrit 27.2 % (36.0-45.0); Hemoglobin 8.5 g/dL (12.0-15.0); MCH 25.4 pg (27.0-35.0); MCHC 31.3 g/dL (32.0-36.0); MPV 8.5 fL (7.6-11.3); Monocytes % 7.6 % (3.3-12.3); Neutrophils % 80.4 % (41.7-73.7); Nucleated Red Blood Cells % 0.1 % (0-0); Platelets 344 thou/uL (152-406); RBC Red Blood Cell Count 3.36 M/uL (3.86-4.86); Red Cell Distribution Width 19.4 % (12.1-15.2)
[2024-02-29 05:25] LABS: Magnesium 1.9 mg/dL (1.6-2.4); Thyroid Stimulating Hormone 1.95 uIU/mL (0.358-3.740)
--- NOTE | 2024-02-29 08:10 | P.PN ---
Date of Service: 02/29/24 Subjective: feels ~same as yesterday maybe slightly better Doesn't feel worse not needing as much oxygen, down to 6L NC this morning no BM in last ~5-6 days afebrile ROS: 10 point ROS as noted above, otherwise negative Physical Exam: GEN: Alert, oriented x3 CV: Regular rate and rhythm, trace pedal edema Pulm: mild-labored respirations on 6L NC bubbler, diminished bilaterally ABD: soft, nontender, nondistended PICC in place, Hammond in place Problem List: Shock, hypovolemic Hypotension Peritoneal metastatic cancer s/p biopsy (02/24) Malignant Left Pleural effusion s/p thoracentesis (02/24) Acute hypoxic respiratory failure; on home O2 Hypertension COPD, chronic Hypothyroidism Anxiety Chrohn's disease GERD Hx prior CVA Shock, hypovolemic Hypotension Peritoneal metastatic cancer s/p biopsy (02/24) Malignant Left Pleural effusion s/p thoracentesis (02/24) Acute hypoxic respiratory failure; on home O2 Patient underwent peritoneal mass biopsy with left thoracentesis with Dr. Larios on 02/24. ~1.5L removed from effusion, ~650mL ascites fluid removed post-operatively, patient was hypoxic and became hypotensive - Didn't meat criteria to extubate CXR (02/24): Mod-Large loculated left pleural effusion with mild-mod pulm edema. Moderate Cardiomegaly repeat CXR (02/25): some improvement of aeration in right upper to midlung Repeat CXR (02/27): unchanged mod pulmonary opacities, likely pulmonary edema vs pneumonia off sedation and extubated 02/25 ~noon suspect hypotension secondary to hypovolemia and medication effect - all occurred after anesthesia/procedure. May need further albumin patient more tachypneic 02/26-02/27; oxygen increased and placed on BiPAP. Responding well to lasix. s/p lasix with albumin 02/27. General surgery, Pulm consulted UA suspicious for UTI although urine culture with no growth. reports some urinary symptoms for 3-4 days, unable to elaborate continue empiric rocephin for now (02/26-) PT eval Hypertension off pressors since 02/25 ~noon BP stable. 120-130s systolic hold home antihypertensives for now Chronic anemia Daily labs. Monitor H&H. COPD, chronic Hypothyroidism Anxiety Chrohn's disease GERD Hx prior CVA confirm home meds, restart as appropriate VTE: lovenox Code: Full Continue ICU level of care. Possible downgrade to floor later this afternoon Time Spent Managing Pts Care (In Minutes): 55
--- NOTE | 2024-02-29 12:31 | RAD REPORT ---
Procedure: Chest Single View HISTORY: Pleural effusion COMPARISON: February 28, 2024 FINDINGS: Moderate bilateral pulmonary opacities. Heart is enlarged. Probable moderate bilateral pleural effusions. IMPRESSION: Moderate bilateral pulmonary opacities probably pulmonary edema Probable moderate bilateral pleural effusions
--- NOTE | 2024-02-29 12:41 | P.PN ---
Subjective Date of Service: 02/29/24 Chief Complaint: Resp Failure Patient is subjectively feeling better although chest x-ray shows significant bilateral pleural effusion Review of Systems Unremarkable General: Weakness Respiratory: Shortness of Breath Physical Examination - Vital Signs Temperature: 97.9 F Blood Pressure: 111/66 Pulse: 92 Respirations: 25 Pulse Ox (%): 95 - Physical Exam General: Alert, Oriented x3 Respiratory: Clear to auscultation bilaterally, Diminished (At the bases) Cardiovascular: No edema, Regular rate/rhythm - Studies Laboratory Data (last 24 hrs) 02/29/24 02/29/24 04:15 04:15 WBC 12.40 H Hgb 8.5 L Hct 27.2 L Plt Count 344 Sodium 139 Potassium 4.0 BUN 11 Creatinine 0.45 L Glucose 104 Phosphorus 3.0 Magnesium 1.9 Microbiology Data (last 24 hrs): 02/26/24 12:52 Catheterized Urine [place] Count - Final No growth. 02/26/24 12:52 Catheterized Urine - Final No growth. Assessment And Plan - Current Problems (Diagnosis) (1) Respiratory failure Current Visit: Yes Status: Acute Plan: Patient feels better denies any chest pain dynamically stable still requiring a lot of oxygen x-ray shows bilateral pleural effusions patient's bicarbonate level is elevated will need to check arterial blood gases white count is stable echocardiogram has been ordered stable to transfer to the floors patient is on home oxygen/ ABG hypercapneic resp failure. Repat Ct scan / Will need BIPAP Qualifiers: Chronicity: acute
[2024-02-29] MEDS: SPIRONOLACTONE 25 MG TABLET PO SCH (13:45)
[2024-02-29 15:11] LABS: Arterial Blood Carboxyhemoglob 1.4 % (0-1.5); Blood Gas Oxyhemoglobin 87.2 % (94-97)
--- NOTE | 2024-02-29 18:27 | RAD REPORT ---
EXAMINATION: Chest Lateral Decubitus CLINICAL INDICATION: Female, 58 years old. Bilateral effusions TECHNIQUE: 2 view decubitus radiographs of the chest were performed. COMPARISON: Same date chest radiograph FINDINGS: Decubitus views of the chest demonstrate layering of the known bilateral pleural effusion. Crescentic opacity along the peripheral left upper chest appears persistent with the decubitus views, could relate to a pleural-based mass or loculated effusion component. IMPRESSION: Crescentic peripheral left upper lung opacity, could relate to a pleural-based mass or loculated effu camille component.
[2024-02-29 19:33] LABS: Arterial Blood Carboxyhemoglob 1.5 % (0-1.5); Blood Gas Oxyhemoglobin 79.9 % (94-97); Blood O2 Saturation 82.5 % (92-98.5)
[2024-03-01 04:59] LABS: Absolute Basophils 0.1 K/uL (0-0.5); Absolute Eosinophils 0.3 K/uL (0-0.5); Absolute Lymphocytes (CBC) 1.1 K/uL (0.7-4.9); Absolute Monocytes 0.8 K/uL (0.1-1.3); Absolute Neutrophil 6.3 K/uL (1.8-8.0); Basophils % 0.7 % (0-1.3); Eosinophils % 3.3 % (0-4.4); Hematocrit 25.4 % (36.0-45.0); Hemoglobin 7.9 g/dL (12.0-15.0); Lymphocytes % 13.4 % (15.3-44.8); MCH 25.1 pg (27.0-35.0); MCHC 31.3 g/dL (32.0-36.0); MCV 80.2 fL (80-100); MPV 8.6 fL (7.6-11.3); Monocytes % 9.4 % (3.3-12.3); Neutrophils % 73.2 % (41.7-73.7); Platelets 328 thou/uL (152-406); RBC Red Blood Cell Count 3.17 M/uL (3.86-4.86); Red Cell Distribution Width 19.6 % (12.1-15.2)
[2024-03-01 05:19] LABS: Anion Gap 3.8 mEq/L (5.0-15.0); Magnesium 1.8 mg/dL (1.6-2.4); Phosphorus 1.8 mg/dL (2.5-4.9); Potassium 3.8 mEq/L (3.5-5.1)
[2024-03-01] MEDS: POTASSIUM PHOS IN 0.9 % NACL 15 MMOL/250 ML BAG IV ONE (06:20)
[2024-03-01] MEDS: MAGNESIUM SULFATE 1 gm IVPB 1 GM/100 ML BAG IV ONE (06:21)
--- NOTE | 2024-03-01 08:07 | RAD REPORT ---
EXAMINATION: ONE VIEW CHEST XR CLINICAL INDICATION: Pleural effusion TECHNIQUE: Frontal chest projection is submitted. Examination is limited by patient positioning and t echnique. COMPARISON: 02/29/2024 FINDINGS: Moderate bilateral pulmonary opacities likely representing edema. Mild to moderate loculated left ple ural effusion. The heart is moderately enlarged. Left-sided PICC line has tip in the SVC.
--- NOTE | 2024-03-01 11:20 | RAD REPORT ---
EXAM: CT CHEST, ABDOMEN AND PELVIS WITHOUT CONTRAST CLINICAL INDICATION: metistatic cancer TECHNIQUE: CT chest, abdomen and pelvis was performed without contrast, as per department protocol. A xial, sagittal and coronal reconstructions were obtained. One or more of the following dose reduction techniques were used: Automated exposure control, adjustment of the mA and/or kV according to patient size, and/or iterative reconstruction. Unless otherwise specified, incidental findings do not require dedicated imaging follow-up. Examination is limited by the lack of intravenous contrast material. COMPARISON: 02/05/2024 FINDINGS: LUNGS: Segmental atelectasis is noted in both lower lungs, greater on the right. 19 mm slightly spicu lated lesion in the right apex. Additional 14 mm nodular lesion is seen anterior right upper lobe. PLEURA: Moderate bilateral pleural effusions, without significant loculation suspected particularly o n the left. Some of the pleural fluid has elevated density particularly left upper lobe. MEDIASTINUM AND LYMPH NODES: Several mildly prominent lymph nodes in the mediastinum including right pericardial fat, measuring up to 9 mm. OSSEOUS STRUCTURES AND CHEST WALL: Intact. LIVER: Mild fatty liver is seen. Grossly unremarkable gallbladder. PANCREAS: No mass, ductal dilation, or kaya-pancreatic fluid. SPLEEN: Normal size. No focal lesion. ADRENALS: Normal; no mass. KIDNEYS: Normal size and contour. No hydronephrosis. URINARY BLADDER: Normal contour. GASTROINTESTINAL TRACT: Mild ascites is present with somewhat elevated density. Large intra-abdominal mass along the left measures 15 x 13 cm. Additional soft tissue masses are seen in the abdomen left lower quadrant measuring 12 x 11 cm. Left lower quadrant mass is present measuring 9 x 7 cm. Sma ller right pelvic mass measuring 4 cm. APPENDIX: Appendix not visualized, but no inflammatory changes in region of appendix. LYMPH NODES: Mildly enlarged lymph nodes are seen in the pelvis and both lower quadrants. MUSCULOSKELETAL: Mild degenerative change lower lumbar spine. OTHER: IMPRESSION: Multiple metastatic masses are noted in the abdomen as detailed. Mild ascites as well as moderate bilateral pleural effusions with loculation. Elevated density within the fluid suggests malignant in etiology. Spiculated lesions in the right upper lobe are present presumably neoplastic in origin.
--- NOTE | 2024-03-01 11:51 | P.PN ---
Subjective Date of Service: 03/01/24 Chief Complaint: Resp Failure Patient is still hypoxic requiring BiPAP chronic respiratory failure denies any chest pain abdominal complaint Review of Systems Unremarkable Physical Examination - Vital Signs Temperature: 97.2 F Blood Pressure: 132/78 Pulse: 97 Respirations: 31 Pulse Ox (%): 97 - Physical Exam General: Alert Neck: Supple - Studies Laboratory Data (last 24 hrs) 03/01/24 03/01/24 04:38 04:38 WBC 8.50 Hgb 7.9 L Hct 25.4 L Plt Count 328 Sodium 139 Potassium 3.8 BUN 12 Creatinine 0.40 L Glucose 80 Phosphorus 1.8 L Magnesium 1.8 Assessment And Plan - Current Problems (Diagnosis) (1) Respiratory failure Current Visit: Yes Status: Acute Plan: Patient has chronic respiratory failure with elevated bicarbonate tolerating BiPAP CT scan shows bilateral pleural effusion has loculation on the left side prognosis is very poor CT is also scan shows a very large intra-abdominal mass patient has no anemia/I have also added Diamox awaiting biopsy at this time hospice care may be an option white count is normal Qualifiers: Chronicity: acute
--- NOTE | 2024-03-01 12:03 | ECHO ---
HEIGHT: 5 ft 8 in WEIGHT: 236 lb 0 oz DATE OF STUDY: 03/01/[address]: Rubén Montero MD 2-DIMENSIONAL: YES M.MODE: YES DOPPLER: YES COLOR FLOW: YES TDS: NO PORTABLE: YES DEFINITY: NO BUBBLE STUDY: NO DIAGNOSIS: RESPIRATORY FAILURE CARDIAC HISTORY: CATHERIZATION: SURGERY: PROSTHETIC VALVE: PACEMAKER: MEASUREMENTS (cm) DIASTOLIC (NORMALS) SYSTOLIC (NORMALS) IVSd 1.0 (0.6-1.2) LA Diam 4.1 (1.9-4.0) LVEF 60-65% LVIDd 4.2 (3.5-5.7) LVIDs 3.0 (2.0-3.5) %FS 28% LVPWd 0.9 (0.6-1.2) Ao Diam 2.9 (2.0-3.7) 2 DIMENSIONAL ASSESSMENT: RIGHT ATRIUM: NORMAL LEFT ATRIUM: NORMAL RIGHT VENTRICLE: NORMAL LEFT VENTRICLE: NORMAL TRICUSPID VALVE: MILD TRICUSPID REGURGITATION MITRAL VALVE: TRACE MITRAL REGURGITATION PULMONIC VALVE: NORMAL AORTIC VALVE: NORMAL PERICARDIAL EFFUSION: NONE AORTIC ROOT: NORMAL LEFT VENTRICULAR WALL MOTION: NORMAL. DOPPLER/COLOR FLOW: NORMAL. COMMENTS: 1. NORMAL LEFT VENTRICULAR SYSTOLIC FUNCTION. LEFT VENTRICULAR EJECTION FRACTION 60-65%. NORMAL WALL MOTION. 2. NORMAL DIASTOLIC FUNCTION. 3. MODERATE PULMONARY HYPERTENSION. RIGHT VENTRICULAR SYSTOLIC PRESSURE 40-45 mmHg. 4. NORMAL FILLING PRESSURES. RIGHT ATRIAL PRESSURE 0-5 mmHg. TECHNOLOGIST: JAMAL LUKE [facility]
[2024-03-01] MEDS: ACETAZOLAMIDE 500 MG IV IV SCH (12:30)
--- NOTE | 2024-03-01 14:02 | P.PN ---
Subjective Date of Service: 03/01/24 Chief Complaint: Resp Failure Patient is maintained on 4 L oxygen by nasal canula. Patient has shortness of breath with talking. No recorded fever. Physical Examination - Vital Signs Temperature: 96.8 F Blood Pressure: 115/68 Pulse: 94 Respirations: 25 Pulse Ox (%): 96 - Studies Laboratory Data (last 24 hrs) 03/01/24 03/01/24 04:38 04:38 WBC 8.50 Hgb 7.9 L Hct 25.4 L Plt Count 328 Sodium 139 Potassium 3.8 BUN 12 Creatinine 0.40 L Glucose 80 Phosphorus 1.8 L Magnesium 1.8 Assessment And Plan - Plan Physical Exam: GEN: Alert, oriented x3 CV: Regular rate and rhythm, trace pedal edema Pulm: mild-labored breathing, diminished breath sounds bilaterally ABD: soft, nontender, nondistended, obese abdomen Extremities: No pedal edema PICC in place, Hammond in place Problem List: Shock, hypovolemic Hypotension Peritoneal metastatic cancer s/p biopsy (02/24) Malignant Left Pleural effusion s/p thoracentesis (02/24) Acute hypoxic respiratory failure; on home O2 Hypertension COPD, chronic Hypothyroidism Anxiety Chrohn's disease GERD Hx prior CVA Shock, hypovolemic Hypotension Peritoneal metastatic cancer s/p biopsy (02/24) Malignant Left Pleural effusion s/p thoracentesis (02/24) Acute hypoxic respiratory failure with hypoxia and hypercapnia Patient underwent peritoneal mass biopsy with left thoracentesis with Dr. Larios on 02/24. 1.5L removed from effusion, 650mL ascites fluid removed post-operatively, patient was hypoxic and became hypotensive Status post intubation. CXR (02/24): Mod-Large loculated left pleural effusion with mild-mod pulm edema. Moderate Cardiomegaly repeat CXR (02/25): some improvement of aeration in right upper to midlung Repeat CXR (02/27): unchanged mod pulmonary opacities, likely pulmonary edema vs pneumonia CT chest abdomen and pelvis 03/01: Bilateral moderate pleural effusion, large intra-abdominal mass. suspect hypotension secondary to hypovolemia and medication effect - all occurred after anesthesia/procedure. Status post Levophed. BMP shows elevated bicarb level indicating CO2 retention. Pulmonary Dr. Montero input appreciated. Intermittent BiPAP as needed. Dr. Riggs is considering Diamox. Intermittent albumin infusion as needed. Continue Lasix. Case discussed with general surgery Dr. Larios. Patient may be a candidate for bilateral Pleurx catheter placement. Dr. Larios is evaluating for need for VATS. UA suspicious for UTI although urine culture with no growth. continue empiric rocephin for now (02/26-) Continue PT. Hypertension off pressors since 02/25 ~noon BP stable. 120-130s systolic hold home antihypertensives for now Chronic anemia Daily labs. Monitor H&H. COPD, chronic Hypothyroidism Anxiety Chrohn's disease GERD Hx prior CVA Bronchodilators as needed. Continue other home medications. VTE: lovenox Code: Full Continue ICU level of care.
[2024-03-01] MEDS: WATER FOR INJ,STERILE 10 ML ONE (20:12)
[2024-03-02 05:29] LABS: Absolute Basophils 0.1 K/uL (0-0.5); Absolute Eosinophils 0.3 K/uL (0-0.5); Absolute Monocytes 0.9 K/uL (0.1-1.3); Absolute Neutrophil 6.5 K/uL (1.8-8.0); Basophils % 0.7 % (0-1.3); Eosinophils % 2.9 % (0-4.4); Hematocrit 26.5 % (36.0-45.0); Hemoglobin 8.4 g/dL (12.0-15.0); Lymphocytes % 11.5 % (15.3-44.8); MCH 25.8 pg (27.0-35.0); MCHC 31.6 g/dL (32.0-36.0); MCV 81.6 fL (80-100); MPV 8.9 fL (7.6-11.3); Monocytes % 9.8 % (3.3-12.3); Neutrophils % 75.1 % (41.7-73.7); Nucleated Red Blood Cells % 0.1 % (0-0); Platelets 361 thou/uL (152-406); RBC Red Blood Cell Count 3.25 M/uL (3.86-4.86); Red Cell Distribution Width 19.8 % (12.1-15.2)
[2024-03-02 05:42] LABS: Anion Gap 4.8 mEq/L (5.0-15.0); Phosphorus 3.9 mg/dL (2.5-4.9); Potassium 3.8 mEq/L (3.5-5.1)
--- NOTE | 2024-03-02 08:23 | RAD REPORT ---
EXAMINATION: ONE VIEW CHEST XR CLINICAL INDICATION: Female, 58 years old.,Pleural effusion TECHNIQUE: Frontal chest projection is submitted. Examination is limited by patient positioning and t echnique. COMPARISON: 03/01/2024 FINDINGS: Stable central interstitial prominence, perihilar fluffy opacities, and layering effusions. Left arm PICC unchanged in position. No pneumothorax. Stable cardiomegaly. Mediastinal contours are unremarkable. IMPRESSION: Stable changes suggestive of pulmonary edema, which may be of cardiogenic origin.
--- NOTE | 2024-03-02 13:13 | P.PN ---
Subjective Date of Service: 03/02/24 Chief Complaint: Resp Failure No change in patient's condition she continues to remain hypoxic during intermittent BiPAP Review of Systems General: Weakness Respiratory: Shortness of Breath Physical Examination - Vital Signs Temperature: 97.6 F Blood Pressure: 113/74 Pulse: 94 Respirations: 18 Pulse Ox (%): 96 - Physical Exam General: Alert, Oriented x3, Mild distress Respiratory: Clear to auscultation bilaterally, Diminished Cardiovascular: No edema, Regular rate/rhythm - Studies Laboratory Data (last 24 hrs) 03/02/24 03/02/24 05:00 05:00 WBC 8.70 Hgb 8.4 L Hct 26.5 L Plt Count 361 Sodium 137 Potassium 3.8 BUN 10 Creatinine 0.51 L Glucose 84 Phosphorus 3.9 Magnesium 2.0 Assessment And Plan - Current Problems (Diagnosis) (1) Respiratory failure Current Visit: Yes Status: Acute Plan: Patient has respiratory failure bilateral pleural effusion biopsies is still pending white count is now normal and is hypoxic hypercapnic prognosis poor very poor baseline status Dr. Nguyen ramirez discussed with the regarding hospice care and wait until the final path report and to discuss with Dr. Parsons overall prognosis very poor evidence of sepsis DC antibiotic Qualifiers: Chronicity: acute
--- NOTE | 2024-03-02 14:49 | P.PN ---
Subjective Date of Service: 03/02/24 Chief Complaint: Resp Failure Patient reports shortness of breath, she is confused, and currently not tolerating oxygen by nasal cannula. She has been on BiPAP briefly but prefers the BiPAP to be removed. No recorded fever. Physical Examination - Vital Signs Temperature: 97.6 F Blood Pressure: 115/75 Pulse: 95 Respirations: 33 Pulse Ox (%): 96 - Studies Laboratory Data (last 24 hrs) 03/02/24 03/02/24 05:00 05:00 WBC 8.70 Hgb 8.4 L Hct 26.5 L Plt Count 361 Sodium 137 Potassium 3.8 BUN 10 Creatinine 0.51 L Glucose 84 Phosphorus 3.9 Magnesium 2.0 Assessment And Plan - Plan Physical Exam: GEN: Alert, oriented x3 CV: Regular rate and rhythm, trace pedal edema Pulm: mild-labored breathing, diminished breath sounds bilaterally ABD: soft, nontender, nondistended, obese abdomen Extremities: No pedal edema PICC in place, Hammond in place Problem List: Shock, hypovolemic Hypotension Peritoneal metastatic cancer s/p biopsy (02/24) Malignant Left Pleural effusion s/p thoracentesis (02/24) Acute hypoxic respiratory failure; on home O2 Hypertension COPD, chronic Hypothyroidism Anxiety Chrohn's disease GERD Hx prior CVA Shock, hypovolemic Hypotension Peritoneal metastatic cancer s/p biopsy (02/24) Malignant Left Pleural effusion s/p thoracentesis (02/24) Acute hypoxic respiratory failure with hypoxia and hypercapnia Patient underwent peritoneal mass biopsy with left thoracentesis with Dr. Larios on 02/24. 1.5L removed from effusion, 650mL ascites fluid removed post-operatively, patient was hypoxic and became hypotensive Status post intubation. CXR (02/24): Mod-Large loculated left pleural effusion with mild-mod pulm edema. Moderate Cardiomegaly repeat CXR (02/25): some improvement of aeration in right upper to midlung Repeat CXR (02/27): unchanged mod pulmonary opacities, likely pulmonary edema vs pneumonia CT chest abdomen and pelvis 03/01: Bilateral moderate pleural effusion, large intra-abdominal mass. suspect hypotension secondary to hypovolemia and medication effect - all occurred after anesthesia/procedure. Status post Levophed. BMP shows elevated bicarb level indicating CO2 retention. Pulmonary Dr. Montero input appreciated. Intermittent BiPAP as needed. Repeat chest x-ray 03/02: Persistent bilateral pleural effusion and pulmonary edema. Dr. Riggs started patient on Diamox. Given worsening hypoxemia and persistent pulmonary edema, will start IV Lasix drip with albumin. BiPAP and high flow oxygen as needed. Goals of care discussed with patient and . Patient and made aware her prognosis is poor. They would like to know patient's cancer diagnosis and prognosis from oncologist Dr. Woo before deciding on hospice. Case discussed with general surgery Dr. Larios. Patient may be a candidate for bilateral Pleurx catheter placement. She is at the moment reluctant for Pleurx catheter placement. UA suspicious for UTI although urine culture with no growth. continue empiric rocephin for now (02/26-) Continue PT. Hypertension off pressors since 02/25 ~noon BP stable. 120-130s systolic holding home antihypertensives for now Chronic anemia Daily labs. Monitor H&H. COPD, chronic Hypothyroidism Anxiety Chrohn's disease GERD Hx prior CVA Bronchodilators as needed. Continue other home medications. VTE: lovenox Code: Full Continue ICU level of care.
[2024-03-02] MEDS: ALBUMIN HUMAN 25% 12.5 GM, FUROSEMIDE 100 MG in NA CHLORIDE 0.9% 40 ML IV SCH (15:16)
[2024-03-02 15:34] LABS: Arterial Blood Carboxyhemoglob 1.2 % (0-1.5); Blood Gas Oxyhemoglobin 93.9 % (94-97); Blood Gas THB 12.1 g/dl (12-18); Blood O2 Saturation 96.5 % (92-98.5)
[2024-03-02] MEDS: acetaZOLAMIDE 250 MG TAB PO SCH (20:04)
[2024-03-02] MEDS ORDERED: WATER FOR INJ,STERILE 10 ML IV SCH (21:00)
[2024-03-03 06:18] LABS: Absolute Basophils 0.1 K/uL (0-0.5); Absolute Eosinophils 0.3 K/uL (0-0.5); Absolute Lymphocytes (CBC) 1.3 K/uL (0.7-4.9); Absolute Monocytes 0.9 K/uL (0.1-1.3); Absolute Neutrophil 6.3 K/uL (1.8-8.0); Basophils % 0.7 % (0-1.3); Eosinophils % 3.1 % (0-4.4); Hematocrit 28.1 % (36.0-45.0); Lymphocytes % 15.1 % (15.3-44.8); MCH 25.3 pg (27.0-35.0); MCHC 32.1 g/dL (32.0-36.0); MCV 78.7 fL (80-100); MPV 8.5 fL (7.6-11.3); Monocytes % 10.4 % (3.3-12.3); Neutrophils % 70.7 % (41.7-73.7); Nucleated Red Blood Cells % 0.1 % (0-0); Platelets 398 thou/uL (152-406); RBC Red Blood Cell Count 3.57 M/uL (3.86-4.86); Red Cell Distribution Width 19.7 % (12.1-15.2)
[2024-03-03 06:30] LABS: Anion Gap 7.1 mEq/L (5.0-15.0); Magnesium 1.9 mg/dL (1.6-2.4); Potassium 3.1 mEq/L (3.5-5.1)
[2024-03-03] MEDS: POTASSIUM 25 MEQ EFFERV TAB PO ONE (08:10)
[2024-03-03] MEDS: UMECLIDIN IH SCH (08:11)
[2024-03-03] MEDS: VILANTER IH SCH (08:11)
[2024-03-03] MEDS: FLUTICASONE IH SCH (08:11)
[2024-03-03] MEDS: ALBUMIN HUMAN 25% 12.5 GM, FUROSEMIDE 100 MG in NA CHLORIDE 0.9% 40 ML IV SCH (09:15)
--- NOTE | 2024-03-03 11:51 | P.PN ---
Subjective Date of Service: 03/03/24 Chief Complaint: Resp Failure Patient is now tolerating high flow oxygen at 5 L/min. Patient could only tolerate BiPAP yesterday. She is more awake. She diuresed well with IV Lasix and albumin. No recorded fever. Physical Examination - Vital Signs Temperature: 98.4 F Blood Pressure: 107/70 Pulse: 95 Respirations: 32 Pulse Ox (%): 95 - Studies Laboratory Data (last 24 hrs) 03/03/24 03/03/24 05:45 05:45 WBC 8.90 Hgb 9.0 L Hct 28.1 L Plt Count 398 Sodium 134 L Potassium 3.1 L D BUN 12 Creatinine 0.75 Glucose 101 Magnesium 1.9 Assessment And Plan - Plan Physical Exam: GEN: Alert, oriented x3 CV: Regular rate and rhythm, trace pedal edema Pulm: moderate labored breathing, diminished breath sounds bilaterally, bilateral crackles. ABD: soft, nontender, nondistended, obese abdomen Extremities: No pedal edema PICC in place, Hammond in place Problem List: Shock, hypovolemic Hypotension Peritoneal metastatic cancer s/p biopsy (02/24) Malignant Left Pleural effusion s/p thoracentesis (02/24) Acute hypoxic respiratory failure; on home O2 Hypertension COPD, chronic Hypothyroidism Anxiety Chrohn's disease GERD Hx prior CVA Shock, hypovolemic Hypotension Peritoneal metastatic cancer s/p biopsy (02/24) Malignant Left Pleural effusion s/p thoracentesis (02/24) Acute hypoxic respiratory failure with hypoxia and hypercapnia Patient underwent peritoneal mass biopsy with left thoracentesis with Dr. Larios on 02/24. 1.5L removed from effusion, 650mL ascites fluid removed post-operatively, patient was hypoxic and became hypotensive Status post intubation. CXR (02/24): Mod-Large loculated left pleural effusion with mild-mod pulm edema. Moderate Cardiomegaly repeat CXR (02/25): some improvement of aeration in right upper to midlung Repeat CXR (02/27): unchanged mod pulmonary opacities, likely pulmonary edema vs pneumonia CT chest abdomen and pelvis 03/01: Bilateral moderate pleural effusion, large intra-abdominal mass. suspect hypotension secondary to hypovolemia and medication effect - all occurred after anesthesia/procedure. Status post Levophed. BMP shows elevated bicarb level indicating CO2 retention. Pulmonary Dr. Montero input appreciated. Intermittent BiPAP as needed. Repeat chest x-ray 03/02: Persistent bilateral pleural effusion and pulmonary edema. Dr. Riggs started patient on Diamox. Patient diuresing well with IV Lasix drip with albumin. She is now tolerating high flow oxygen. BiPAP and high flow oxygen as needed. Goals of care discussed with patient and . Patient and made aware her prognosis is poor. They would like to know patient's cancer diagnosis and prognosis from oncologist Dr. Woo before deciding on hospice. Case discussed with general surgery Dr. Larios. Patient may be a candidate for bilateral Pleurx catheter placement. Patient has been agreed to Pleurx catheter placement. Dr. Larios to follow for Pleurx catheter placement. UA suspicious for UTI although urine culture with no growth. continue empiric rocephin for now (02/26-) Continue PT. Hypertension off pressors since 02/25 ~noon BP stable. 120-130s systolic holding home antihypertensives for now Chronic anemia Daily labs. Monitor H&H. COPD, chronic Hypothyroidism Anxiety Chrohn's disease GERD Hx prior CVA Bronchodilators as needed. Continue other home medications. VTE: lovenox Code: Full Continue ICU level of care. I discussed CODE STATUS with patient and her . They are yet to decide on DNR and DO NOT INTUBATE.
[2024-03-03] MEDS: POTASSIUM CL SA 10 MEQ TAB PO ONE ×2 (14:47→23:15)
[2024-03-03] MEDS: GABAPENTIN 300 MG CAP PO PRN (21:12)
[2024-03-04 04:29] LABS: Absolute Basophils 0.1 K/uL (0-0.5); Absolute Eosinophils 0.3 K/uL (0-0.5); Absolute Lymphocytes (CBC) 1.6 K/uL (0.7-4.9); Absolute Monocytes 1.1 K/uL (0.1-1.3); Absolute Neutrophil 6.1 K/uL (1.8-8.0); Basophils % 0.6 % (0-1.3); Eosinophils % 3.3 % (0-4.4); Hematocrit 26.9 % (36.0-45.0); Hemoglobin 8.8 g/dL (12.0-15.0); Lymphocytes % 17.9 % (15.3-44.8); MCH 25.7 pg (27.0-35.0); MCHC 32.9 g/dL (32.0-36.0); MCV 78.2 fL (80-100); MPV 8.7 fL (7.6-11.3); Monocytes % 11.7 % (3.3-12.3); Neutrophils % 66.5 % (41.7-73.7); Nucleated Red Blood Cells % 0.1 % (0-0); Platelets 424 thou/uL (152-406); RBC Red Blood Cell Count 3.44 M/uL (3.86-4.86); Red Cell Distribution Width 19.7 % (12.1-15.2)
[2024-03-04 04:41] LABS: Anion Gap 7.4 mEq/L (5.0-15.0); Magnesium 2.1 mg/dL (1.6-2.4); Phosphorus 3.3 mg/dL (2.5-4.9); Potassium 3.4 mEq/L (3.5-5.1)
[2024-03-04] MEDS: POTASSIUM CL SA 10 MEQ TAB PO ONE (05:25)
--- NOTE | 2024-03-04 09:11 | RAD REPORT ---
Procedure: Chest Single View HISTORY: Cough COMPARISON: March 02, 2024 FINDINGS: Moderate bilateral pleural effusions without obvious change. Left pleural effusion is loculated. Minimal improvement in bilateral pulmonary opacities may represent mild pulmonary edema. Bibasilar atelectasis The heart remains enlarged. PICC line with its tip in the SVC. IMPRESSION: Minimal improvement in the pulmonary edema
--- NOTE | 2024-03-04 10:12 | P.PN ---
Subjective Date of Service: 03/04/24 Chief Complaint: Resp Failure Patient is doing somewhat better requiring BiPAP eating and drinking patient is currently sleeping nonverbal and at the bedside Review of Systems is unable to be obtained Physical Examination - Vital Signs Temperature: 97.0 F Blood Pressure: 94/65 Pulse: 95 Respirations: 25 Pulse Ox (%): 93 - Physical Exam General: Unresponsive Respiratory: Clear to auscultation bilaterally Cardiovascular: No edema, Regular rate/rhythm, Normal S1 S2 - Studies Laboratory Data (last 24 hrs) 03/04/24 03/04/24 03/03/24 03:54 03:54 Unknown WBC 9.20 Hgb 8.8 L Hct 26.9 L Plt Count 424 H Sodium 133 L Potassium 3.4 L Cancelled BUN 18 Creatinine 0.98 Glucose 109 H Phosphorus 3.3 Magnesium 2.1 03/03/24 03/03/24 21:00 13:30 WBC Hgb Hct Plt Count Sodium Potassium 3.5 3.2 L BUN Creatinine Glucose Phosphorus Magnesium Assessment And Plan - Current Problems (Diagnosis) (1) Respiratory failure Current Visit: Yes Status: Acute Plan: Patient admitted with respiratory failure still has bilateral pleural effusions patient is on Lasix albumin drip continue with Diamox spironolactone metastatic cancer pathology admit and BiPAP is now DNR prognosis poor x-ray shows bilateral pleural effusions Qualifiers: Chronicity: acute
--- NOTE | 2024-03-04 12:47 | P.PN ---
Subjective Date of Service: 03/04/24 Chief Complaint: Resp Failure Patient has been tolerating high flow 5 L by nasal cannula. She is reliant on CPAP during sleep. Patient was seen awake, conversant and eating breakfast this morning. Urine output has dwindled with a Lasix drip and IV albumin infusion over the past 24 hours. No recorded fever. Physical Examination - Vital Signs Temperature: 97.0 F Blood Pressure: 109/78 Pulse: 93 Respirations: 25 Pulse Ox (%): 94 - Studies Laboratory Data (last 24 hrs) 03/04/24 03/04/24 03/03/24 03:54 03:54 Unknown WBC 9.20 Hgb 8.8 L Hct 26.9 L Plt Count 424 H Sodium 133 L Potassium 3.4 L Cancelled BUN 18 Creatinine 0.98 Glucose 109 H Phosphorus 3.3 Magnesium 2.1 03/03/24 03/03/24 21:00 13:30 WBC Hgb Hct Plt Count Sodium Potassium 3.5 3.2 L BUN Creatinine Glucose Phosphorus Magnesium Assessment And Plan - Plan Physical Exam: GEN: Alert, oriented x3 CV: Regular rate and rhythm, trace pedal edema Pulm: moderate labored breathing, diminished breath sounds bilaterally, bilateral crackles. ABD: soft, nontender, nondistended, obese abdomen Extremities: No pedal edema PICC in place, Hammond in place Problem List: Shock, hypovolemic Hypotension Peritoneal metastatic cancer s/p biopsy (02/24) Malignant Left Pleural effusion s/p thoracentesis (02/24) Acute hypoxic respiratory failure; on home O2 Hypertension COPD, chronic Hypothyroidism Anxiety Chrohn's disease GERD Hx prior CVA Shock, hypovolemic Hypotension Peritoneal metastatic cancer s/p biopsy (02/24) Malignant Left Pleural effusion s/p thoracentesis (02/24) Acute hypoxic respiratory failure with hypoxia and hypercapnia Metabolic alkalosis Patient underwent peritoneal mass biopsy with left thoracentesis with Dr. Larios on 02/24. 1.5L removed from effusion, 650mL ascites fluid removed post-operatively, patient was hypoxic and became hypotensive Status post intubation. CXR (02/24): Mod-Large loculated left pleural effusion with mild-mod pulm edema. Moderate Cardiomegaly repeat CXR (02/25): some improvement of aeration in right upper to midlung Repeat CXR (02/27): unchanged mod pulmonary opacities, likely pulmonary edema vs pneumonia CT chest abdomen and pelvis 03/01: Bilateral moderate pleural effusion, large intra-abdominal mass. suspect hypotension secondary to hypovolemia and medication effect - all occurred after anesthesia/procedure. Status post Levophed. BMP shows increasing bicarb level indicating CO2 retention versus contraction alkalosis. Pulmonary Dr. Montero input appreciated. Intermittent BiPAP as needed. Repeat chest x-ray 03/04: Persistent bilateral pleural effusion but improving pulmonary edema. Dr. Riggs started patient on Diamox. Hold IV Lasix drip with albumin. Nephrology consult for contraction alkalosis BiPAP and high flow oxygen as needed. Goals of care discussed with patient and . Patient and made aware her prognosis is poor. They would like to know patient's cancer diagnosis and prognosis from oncologist Dr. Woo before deciding on hospice. Case discussed with general surgery Dr. Larios. Patient may be a candidate for bilateral Pleurx catheter placement. Patient has been agreed to Pleurx catheter placement. Dr. Larios to follow for Pleurx catheter placement. UA suspicious for UTI although urine culture with no growth. continue empiric rocephin for now (02/26-) Continue PT. Hypertension off pressors since 02/25 ~noon BP stable. Patient has been normotensive holding home antihypertensives for now Chronic anemia Daily labs. Monitor H&H. COPD, chronic Hypothyroidism Anxiety Chrohn's disease GERD Hx prior CVA Bronchodilators as needed. Continue other home medications. VTE: lovenox Code: Full Continue ICU level of care. Patient and have decided to proceed with DNR.
[2024-03-04] MEDS: ALBUMIN HUMAN 25% 12.5 GM, FUROSEMIDE 100 MG in NA CHLORIDE 0.9% 40 ML IV SCH (16:28)
[2024-03-05 05:54] LABS: Anion Gap 7.7 mEq/L (5.0-15.0); Magnesium 2.2 mg/dL (1.6-2.4); Phosphorus 3.7 mg/dL (2.5-4.9); Potassium 3.7 mEq/L (3.5-5.1)
[2024-03-05 06:07] LABS: Absolute Basophils 0.1 K/uL (0-0.5); Absolute Eosinophils 0.4 K/uL (0-0.5); Absolute Lymphocytes (CBC) 1.9 K/uL (0.7-4.9); Absolute Monocytes 0.9 K/uL (0.1-1.3); Absolute Neutrophil 6.7 K/uL (1.8-8.0); Basophils % 0.8 % (0-1.3); Hematocrit 27.9 % (36.0-45.0); Lymphocytes % 18.7 % (15.3-44.8); MCH 25.3 pg (27.0-35.0); MCHC 32.2 g/dL (32.0-36.0); MCV 78.7 fL (80-100); MPV 9.1 fL (7.6-11.3); Monocytes % 9.5 % (3.3-12.3); Nucleated Red Blood Cells % 0.2 % (0-0); Platelets 420 thou/uL (152-406); RBC Red Blood Cell Count 3.54 M/uL (3.86-4.86); Red Cell Distribution Width 19.4 % (12.1-15.2)
[2024-03-05] MEDS: POTASSIUM 25 MEQ EFFERV TAB PO ONE (09:00)
[2024-03-05] MEDS: POTASSIUM CL SA 10 MEQ TAB PO ONE ×2 (09:16→09:23)
[2024-03-05] MEDS: NA CHLORIDE 0.9% 250 ML IV ONE (09:48)
--- NOTE | 2024-03-05 11:53 | P.PN ---
Subjective Date of Service: 03/05/24 Chief Complaint: Resp Failure Patient is on high flow 5 L by nasal cannula. She is reliant on CPAP during sleep. Patient is awake. She reported good sleep last night. No recorded fever. Serum creatinine trended up. Physical Examination - Vital Signs Temperature: 97.1 F Blood Pressure: 96/62 Pulse: 88 Respirations: 26 Pulse Ox (%): 95 - Studies Laboratory Data (last 24 hrs) 03/05/24 03/05/24 05:11 05:11 WBC 10.00 Hgb 9.0 L Hct 27.9 L Plt Count 420 H Sodium 133 L Potassium 3.7 BUN 28 H Creatinine 1.66 H Glucose 118 H Phosphorus 3.7 Magnesium 2.2 Assessment And Plan - Plan Physical Exam: GEN: Alert, oriented x3 CV: Regular rate and rhythm, trace pedal edema Pulm: moderate labored breathing, diminished breath sounds bilaterally, bilate ral crackles. ABD: soft, nontender, nondistended, obese abdomen Extremities: No pedal edema PICC in place, Hammond in place Problem List: Shock, hypovolemic Hypotension Peritoneal metastatic cancer s/p biopsy (02/24) Malignant Left Pleural effusion s/p thoracentesis (02/24) Acute hypoxic respiratory failure; on home O2 Hypertension COPD, chronic Hypothyroidism Anxiety Chrohn's disease GERD Hx prior CVA Plan: Shock, hypovolemic Hypotension Peritoneal metastatic cancer s/p biopsy (02/24) Malignant Left Pleural effusion s/p thoracentesis (02/24) Acute hypoxic respiratory failure with hypoxia and hypercapnia Metabolic alkalosis Patient underwent peritoneal mass biopsy with left thoracentesis with Dr. Larios on 02/24. 1.5L removed from effusion, 650mL ascites fluid removed post-operatively, patient was hypoxic and became hypotensive Status post intubation. CXR (02/24): Mod-Large loculated left pleural effusion with mild-mod pulm edema. Moderate Cardiomegaly repeat CXR (02/25): some improvement of aeration in right upper to midlung Repeat CXR (02/27): unchanged mod pulmonary opacities, likely pulmonary edema vs pneumonia CT chest abdomen and pelvis 03/01: Bilateral moderate pleural effusion, large intra-abdominal mass. suspect hypotension secondary to hypovolemia and medication effect - all occurred after anesthesia/procedure. Status post Levophed. BMP shows elevated bicarb Pulmonary Dr. Montero input appreciated. Intermittent BiPAP as needed. Repeat chest x-ray 03/04: Persistent bilateral pleural effusion but improving pulmonary edema. Elevated bicarb secondary to compensation for CO2 retention or contraction alkalosis. Serum creatinine also trended up. IV Lasix drip with albumin discontinued Nephrology consulted and he recommended IV albumin infusion and brief rehydration. BiPAP and high flow oxygen as needed. Goals of care discussed with patient and . Patient and made aware her prognosis is poor. Goals of care pending biopsy pathology results. Case discussed with general surgery Dr. Larios. Patient may be a candidate for bilateral Pleurx catheter placement. Patient has been agreed to Pleurx catheter placement. Dr. Larios to follow for Pleurx catheter placement. UA suspicious for UTI although urine culture with no growth. continue empiric rocephin for now (02/26-) Continue PT. Hypertension off pressors since 02/25 ~noon BP stable. Patient has been normotensive Continue to hold antihypertensives. Chronic anemia Daily labs. Monitor H&H. COPD, chronic Hypothyroidism Anxiety Chrohn's disease GERD Hx prior CVA Bronchodilators as needed. Continue other home medications. Acute kidney injury Likely secondary to overdiuresis. Lasix drip discontinued. Nephrology is following. IV albumin infusion and IV hydration per nephrology. Encourage oral hydration. VTE: lovenox Code: Full Continue ICU level of care. DNR.
[2024-03-06 05:08] LABS: Absolute Eosinophils 0.2 K/uL (0-0.5); Absolute Lymphocytes (CBC) 1.3 K/uL (0.7-4.9); Absolute Monocytes 0.8 K/uL (0.1-1.3); Absolute Neutrophil 9.3 K/uL (1.8-8.0); Basophils % 0.4 % (0-1.3); Eosinophils % 1.7 % (0-4.4); Hematocrit 27.6 % (36.0-45.0); Hemoglobin 8.8 g/dL (12.0-15.0); Lymphocytes % 11.4 % (15.3-44.8); MCH 24.8 pg (27.0-35.0); MCHC 31.8 g/dL (32.0-36.0); MCV 78.1 fL (80-100); Monocytes % 6.9 % (3.3-12.3); Neutrophils % 79.6 % (41.7-73.7); Platelets 446 thou/uL (152-406); RBC Red Blood Cell Count 3.54 M/uL (3.86-4.86); Red Cell Distribution Width 19.5 % (12.1-15.2)
[2024-03-06 05:28] LABS: Anion Gap 7.5 mEq/L (5.0-15.0); Magnesium 2.1 mg/dL (1.6-2.4); Potassium 3.5 mEq/L (3.5-5.1)
[2024-03-06] MEDS: POTASSIUM CL SA 10 MEQ TAB PO ONE (06:14)
--- NOTE | 2024-03-06 11:12 | P.PN ---
Subjective Date of Service: 03/06/24 Chief Complaint: Resp Failure Patient is on high flow 4 L by nasal cannula. She did not use CPAP last night. Patient is awake and alert No recorded fever. Physical Examination - Vital Signs Temperature: 97.0 F Blood Pressure: 106/67 Pulse: 81 Respirations: 34 Pulse Ox (%): 93 - Studies Laboratory Data (last 24 hrs) 03/06/24 03/06/24 04:50 04:50 WBC 11.70 H Hgb 8.8 L Hct 27.6 L Plt Count 446 H Sodium 131 L Potassium 3.5 BUN 34 H Creatinine 1.66 H Glucose 153 H Phosphorus 4.0 Magnesium 2.1 Assessment And Plan - Plan Physical Exam: GEN: Alert, oriented x3 CV: Regular rate and rhythm, trace pedal edema Pulm: moderate labored breathing, diminished breath sounds bilaterally, bilateral crackles. ABD: soft, nontender, nondistended, obese abdomen Extremities: No pedal edema PICC in place, Hammond in place Problem List: Shock, hypovolemic Hypotension Peritoneal metastatic cancer s/p biopsy (02/24) Malignant Left Pleural effusion s/p thoracentesis (02/24) Acute hypoxic respiratory failure; on home O2 Hypertension COPD, chronic Hypothyroidism Anxiety Chrohn's disease GERD Hx prior CVA Plan: Shock, hypovolemic Hypotension Peritoneal metastatic cancer s/p biopsy (02/24) Malignant Left Pleural effusion s/p thoracentesis (02/24) Acute hypoxic respiratory failure with hypoxia and hypercapnia Metabolic alkalosis Patient underwent peritoneal mass biopsy with left thoracentesis with Dr. Larios on 02/24. 1.5L removed from effusion, 650mL ascites fluid removed post-operatively, patient was hypoxic and became hypotensive Status post intubation. CXR (02/24): Mod-Large loculated left pleural effusion with mild-mod pulm edema. Moderate Cardiomegaly repeat CXR (02/25): some improvement of aeration in right upper to midlung Repeat CXR (02/27): unchanged mod pulmonary opacities, likely pulmonary edema vs pneumonia CT chest abdomen and pelvis 03/01: Bilateral moderate pleural effusion, large intra-abdominal mass. suspect hypotension secondary to hypovolemia and medication effect - all occurred after anesthesia/procedure. Status post Levophed. BMP shows elevated bicarb Pulmonary Dr. Montero input appreciated. Intermittent BiPAP as needed. Repeat chest x-ray 03/04: Persistent bilateral pleural effusion but improving pulmonary edema. Elevated bicarb secondary to compensation for CO2 retention or contraction alkalosis. Serum creatinine also trended up. Patient restarted on IV Lasix drip with albumin per nephrology BiPAP and high flow oxygen as needed. Goals of care discussed with patient and . Patient and made aware her prognosis is poor. Further goals of care discussion biopsy pathology results. Case discussed with general surgery Dr. Larios. Patient may need bilateral Pleurx catheter placement. Patient has been agreed to Pleurx catheter placement. Dr. Larios to follow for Pleurx catheter placement. Patient was treated with empiric IV Rocephin. Continue PT. Hypertension off pressors since 02/25 ~noon BP stable. Patient has been normotensive Continue to hold antihypertensives. Chronic anemia Daily labs. Monitor H&H. COPD, chronic Hypothyroidism Anxiety Chrohn's disease GERD Hx prior CVA Bronchodilators as needed. Continue other home medications. Acute kidney injury Likely secondary to overdiuresis. No change in serum creatinine from yesterday. Nephrology is following. Patient restarted on Lasix drip with albumin Encourage oral hydration. VTE: lovenox Code: Full Continue ICU level of care. DNR.
--- NOTE | 2024-03-06 13:15 | P.PN ---
Subjective Date of Service: 03/06/24 Chief Complaint: Resp Failure Subjective: Improving Patient has been off BiPAP for the entire evening, only uses BiPAP intermittently now when she has her saturations temporarily transiently decrease or with confusion. Her saturations have generally been well and she feels generally well. Physical Examination - Vital Signs Temperature: 97.1 F Blood Pressure: 111/79 Pulse: 94 Respirations: 24 Pulse Ox (%): 98 - Physical Exam General: Alert, In no apparent distress, Oriented x3, Cooperative Respiratory: Diminished Gastrointestinal: Soft and benign, Non-distended, No tenderness, No rebound, No guarding, Ascites, Masses Neurological: Normal speech - Studies Laboratory Data (last 24 hrs) 03/06/24 03/06/24 04:50 04:50 WBC 11.70 H Hgb 8.8 L Hct 27.6 L Plt Count 446 H Sodium 131 L Potassium 3.5 BUN 34 H Creatinine 1.66 H Glucose 153 H Phosphorus 4.0 Magnesium 2.1 Assessment And Plan - Plan This 4-year-old woman with metastatic cancer of uncertain etiology. -No need to place chest tubes at this time as she is improving her respiratory effort generally. -Patient is healing well from diagnostic laparoscopy. -Continue medical management, recommend hospice consult.
--- NOTE | 2024-03-06 15:43 | PN ---
Date of Progress Note: 03/06/2024 Subjective: No change in clinical status. The patient is more alert. Creatinine is stable. Has lo w urine output. I will discontinue diuretic and will give the patient albumin. Physical Examination: Vital Signs: Temperature 97.1, pulse rate 96, blood pressure 111/66. General: Awake and alert, using BiPAP. Neck: Supple. No elevated JVD. Heart: Regular rate and rhythm. Normal S1, S2. Chest: Diminished air entry to the left side. Abdomen: Soft and nontender. Extremities: No edema. Laboratory Data: White count of 10, hemoglobin of 9. Sodium 131, creatinine 1.6, corrected calcium is more than 12. Assessment And Plan: 1.Acute kidney injury, likely due to overdiuresis. The patient has left malignant effusion. The zuleima lopez has recurrent left pleural effusion, which is likely malignant, that did not respond to diureti c or hold on diuretic right now. Also, her labs show significant hypercalcemia and would likely jony anthony the patient is dehydrated. We will discontinue IV fluids and discontinue albumin. 2.Mild hyponatremia due to Lasix. I encouraged to increase fluid intake. 3.Hypercalcemia. Corrected calcium is around 13. We will order PTH and PTHrP. Continue to hold La six. 4.Metastatic peritoneal cancer, status post biopsy, pending results. 5.Respiratory acidosis. Continue BiPAP and oxygen. Thanks for allowing me to participate in the patient's care. Total time spent 55 minutes including d ocumentation, reviewing labs, and placing orders. The patient has overall guarded prognosis. AA/MODL Voice ID: [id number] Report ID: [id number]
--- NOTE | 2024-03-06 17:19 | CON ---
Date of Consultation: 03/05/2024 Reason For Consultation: Acute kidney injury, bicarbonate. History Of Present Illness: This is a 58-year-old woman with past medical history of COPD, hypertens ion, who was noted to have pleural effusion. The patient was admitted for further evaluation. There fore, for peritoneal mass lesion, she went for a biopsy. After biopsy and sedation, hospital course complicated by respiratory failure that required intubation and hypotensive. She was moved to the [facility], requiring pressor support. The patient was on Lasix drip. On 02/24, she had a 1.5 L of fluid rem oval via thoracentesis. She was on Lasix drip and she noticed to have a high bicarbonate. ABG showe d main acid-base disturbance of respiratory acidosis, mild metabolic alkalosis. She was started on D iamox and placed on BiPAP. Today, her creatinine was up to 1.6. Past Medical History: COPD, hypertension. Past Surgical History: Tubal ligation, partial hysterectomy, and brain biopsy. Family History: Father and mother have a history of cancer. Social History: Denies tobacco use. Review of Systems: The patient is on IPAP and minimally communicative. She is unable to provide history. Objective: Vital Signs: Temperature 97.1, blood pressure 96/62, pulse 88. General: The patient is somnolent on BiPAP, obese, chronically ill. Neck: Supple. No elevated JVD. Heart: Regular rate and rhythm. Normal S1, S2. Chest diminished air entry to the left side. Abdomen: Soft and nontender. Extremities: No edema. Laboratory Data: Labs include sodium 133, potassium 3.7, BUN 28, creatinine 1.6. Assessment And Plan: 1.Acute kidney injury, possibly due to overdiuresis. The patient currently has no peripheral edema with high calcium level. 2.Pleural effusion is likely malignant and the patient will likely benefit from thoracentesis other than diuretic. We will hold Lasix. We will give albumin. Monitor INR. Renal dose medication. 3.Respiratory acidosis with mild metabolic alkalosis. I will discontinue Diamox. Continue BiPAP an d oxygen. Pulmonary following. 4.Peritoneal metastasis. The patient is status post biopsy on 02/24, pending results. 5.History of chronic obstructive pulmonary disease with CO2 retention. Continue BiPAP. 6.Mild hypercalcemia. 7.Hypercalcemia. Corrected calcium level is around 12. We will order ionized calcium. Hold Lasix as above. We will order PTH and PTHrP. Thanks for allowing me to participate in the patient's care. Total time spent 55 minutes including d ocumentation, reviewing labs, and placing orders. SEJAL/DAVID Voice ID: [id number] Report ID: [id number]
--- NOTE | 2024-03-06 17:36 | RAD REPORT ---
EXAMINATION: CT CHEST WITHOUT CONTRAST CLINICAL INDICATION: Follow-up bilateral pleural effusion TECHNIQUE: Routine CT scan of the chest without intravenous contrast. One or more of the following do se reduction techniques were used: Automated exposure control, adjustment of the mA and/or kV according to patient size, and/or iterative reconstruction. Unless otherwise specified, incidental fi ndings do not require dedicated imaging follow-up. COMPARISON: 02/20/2024 FINDINGS: LOWER NECK: Visualized thyroid gland and soft tissues are normal. LUNGS: Segmental atelectasis is seen in both lung bases, similar to prior study. Nodular density ante rior right lung is stable. PLEURA: Loculated left pleural effusion appears essentially unchanged since comparative study. Modera te right pleural effusion is also unchanged. MEDIASTINUM AND LYMPH NODES: No mediastinal mass or fluid collection. Normal size mediastinal, hilar, and axillary lymph nodes. OSSEOUS STRUCTURES AND CHEST WALL: Intact. UPPER ABDOMEN: No significant abnormalities. IMPRESSION: No real change is observed in the appearance of the chest since 03/01/2024 Examination limited by lack of IV contrast.
[2024-03-06] MEDS: ALBUMIN HUMAN 25% 100 ML IV SCH (20:11)
[2024-03-07 04:56] LABS: Hemoglobin 8.9 g/dL (12.0-15.0)
[2024-03-07 05:05] LABS: Absolute Eosinophils 0.2 K/uL (0-0.5); Absolute Lymphocytes (CBC) 1.7 K/uL (0.7-4.9); Absolute Monocytes 1.4 K/uL (0.1-1.3); Absolute Neutrophil 16.7 K/uL (1.8-8.0); Anion Gap 10.7 mEq/L (5.0-15.0); Basophils % 0.2 % (0-1.3); Eosinophils % 0.8 % (0-4.4); Hematocrit 27.5 % (36.0-45.0); Lymphocytes % 8.7 % (15.3-44.8); MCHC 32.5 g/dL (32.0-36.0); MPV 9.4 fL (7.6-11.3); Monocytes % 6.9 % (3.3-12.3); Neutrophils % 83.4 % (41.7-73.7); Phosphorus 4.2 mg/dL (2.5-4.9); Platelets 431 thou/uL (152-406); Potassium 3.7 mEq/L (3.5-5.1); RBC Red Blood Cell Count 3.57 M/uL (3.86-4.86); Red Cell Distribution Width 19.2 % (12.1-15.2)
[2024-03-07 05:56] VITALS: O2SAT 94
[2024-03-07 06:14] VITALS: BMI 33.0
[2024-03-07] MEDS: KCL 20 MEQ/100 mL IVPB 20 MEQ/100 ML BAG IV ONE (06:44)
[2024-03-07 08:17] LABS: Differential Total Cells Count 100; Eosinophils 1 % (0-3); Lymphocytes 14 % (15-42); Monocytes 4 % (0-10); Platelet Estimate ADEQ; Segmented Neutrophils 81 % (40-80)
[2024-03-07 08:18] LABS: Anisocytosis 1+; Blood Morphology Comment NOTED (NOT SEEN); Hypochromasia 1+; Stomatocytes 1+; Toxic Granulation 1+
[2024-03-07] MEDS: CEFEPIME 1 GM in NA CHLORIDE 0.9% 100 ML IV SCH (08:19)
[2024-03-07] MEDS: VANCOMYCIN 1.75 GM in NA CHLORIDE 0.9% 500 ML IVPB SCH (08:20)
--- NOTE | 2024-03-07 08:30 | CON ---
Date of Consultation: 03/05/2024 Reason For Consultation: High bicarbonate level, acute kidney injury. History Of Present Illness: Patient currently on BiPAP and cannot communicate well. History mainly obtained from the chart. This is a 58-year-old woman with past medical history of COPD, hypertension , GERD, hypothyroidism. Patient has been admitted for respiratory failure. Patient was diagnosed wi th left pleural effusion, required thoracentesis, found to have peritoneal mass, and underwent biopsy on 02/24. Hospital course complicated by hypotension and required intubation and pressor support. Patient was on Lasix. Even though she had thoracentesis, she had recurrent pleural effusion. She wa s placed on Lasix drip for edema and left pleural effusion, noticed to have . ABG showed _ respiratory acidosis. Today, her creatinine increased from 0.9 to 1.6. Nephrology is cons ulted for further evaluation. Past Medical History: COPD, hypertension. Past Surgical History: Intubation, peritoneal mass biopsy. Family History: Noncontributory. Allergies: PATIENT IS ALLERGIC TO METRONIDAZOLE AND ADHESIVE TAPE. Social History: No known history of tobacco or recreational drug abuse. Review of Systems: Limited, on BiPAP feels weak. Denies nausea, vomiting, or diarrhea. Vital Signs: Temperature 96.9, pulse rate 86, blood pressure 103/67. Physical Examination: General: Is awake, looks chronically ill, using BiPAP. Neck: Supple. No elevated JVD. Heart: Regular rate and rhythm. Normal S1, S2. Chest: Decreased air entry bilaterally. Abdomen: Soft and nontender. Extremities: She has trace edema. Medications: Include albuterol, Lipitor, duloxetine, inhalers, gabapentin as needed, levothyroxine, pantoprazole, and spironolactone. Laboratory Data: Sodium 133, potassium 3.7, BUN 28, creatinine 1.3, calcium 10.4. Assessment And Plan: 1.Acute kidney injury, possibly due to overdiuresis. Patient has trace edema on examination. Her c alcium also trending up. Currently, she is off Lasix drip. We will continue to monitor renal functi on. albumin. Renal dose medication. 2.High bicarbonate. ABG showed main acid-base disturbance of respiratory acidosis and mild metaboli c alkalosis. No need for Diamox. Continue bi-level positive airway pressure and inhalers. Manageme nt as per Pulmonary. 3.Malignant left pleural effusion, recurrent. Patient should have thoracentesis every [address] recent x-ray showed recurrent effusion. Might benefit from a second thoracentesis. 4.Hypotension. Currently, blood pressure is borderline. We will continue to monitor. 5.Peritoneal mass, likely metastasis, status post biopsy, 02/24, results pending. Thank you for allowing to participate in patient care. Total Time Spent: Seventy-five minutes, including documentation, reviewing lab, and placing order. Prognosis: Overall, patient has a [id number] prognosis. SEJAL/DAVID Voice ID: [id number] Report ID: [id number]
[2024-03-07] MEDS ORDERED: BISACODYL 10 MG RECTAL SUPP PR ONE (08:45)
[2024-03-07] MEDS: FUROSEMIDE 40 MG/4 ML VIAL IV ONE (10:36)
[2024-03-07] MEDS: BISACODYL 10 MG RECTAL SUPP PR ONE (13:56)
--- NOTE | 2024-03-07 13:56 | P.PN ---
Subjective Date of Service: 03/07/24 Chief Complaint: Resp Failure Patient is on high flow 4 L by nasal cannula. She is looking better. Patient is awake and alert Physical Examination - Vital Signs Temperature: 98.6 F Blood Pressure: 114/67 Pulse: 93 Respirations: 28 Pulse Ox (%): 94 - Studies Laboratory Data (last 24 hrs) 03/07/24 03/07/24 03/07/24 07:00 04:30 04:30 WBC Hgb Hct Plt Count Sodium 131 L Potassium 3.7 BUN 43 H Creatinine 1.87 H Glucose 117 H Phosphorus Cancelled 4.2 Magnesium 2.1 03/07/24 04:30 WBC 20.00 H Hgb 8.9 L Hct 27.5 L Plt Count 431 H Sodium Potassium BUN Creatinine Glucose Phosphorus Magnesium Assessment And Plan - Plan Physical Exam: GEN: Alert, oriented x3 CV: Regular rate and rhythm, trace pedal edema Pulm: moderate labored breathing, diminished breath sounds bilaterally, bilateral crackles. ABD: soft, nontender, nondistended, obese abdomen Extremities: No pedal edema PICC in place, Hammond in place Problem List: Shock, hypovolemic Hypotension Peritoneal metastatic cancer s/p biopsy (02/24) Malignant Left Pleural effusion s/p thoracentesis (02/24) Acute hypoxic respiratory failure; on home O2 Hypertension COPD, chronic Hypothyroidism Anxiety Chrohn's disease GERD Hx prior CVA Plan: Shock, hypovolemic Hypotension Peritoneal metastatic cancer s/p biopsy (02/24) Malignant Left Pleural effusion s/p thoracentesis (02/24) Acute hypoxic respiratory failure with hypoxia and hypercapnia Metabolic alkalosis Patient underwent peritoneal mass biopsy with left thoracentesis with Dr. Larios on 02/24. 1.5L removed from effusion, 650mL ascites fluid removed post-operatively, patient was hypoxic and became hypotensive Status post intubation. CXR (02/24): Mod-Large loculated left pleural effusion with mild-mod pulm edema. Moderate Cardiomegaly repeat CXR (02/25): some improvement of aeration in right upper to midlung Repeat CXR (02/27): unchanged mod pulmonary opacities, likely pulmonary edema vs pneumonia CT chest abdomen and pelvis 03/01: Bilateral moderate pleural effusion, large intra-abdominal mass. suspect hypotension secondary to hypovolemia and medication effect - all occurred after anesthesia/procedure. Status post Levophed. BMP shows elevated bicarb Pulmonary Dr. Montero input appreciated. Intermittent BiPAP as needed. Repeat chest x-ray 03/04: Persistent bilateral pleural effusion but improving pulmonary edema. Elevated bicarb secondary to compensation for CO2 retention or contraction alkalosis. Serum creatinine trending up. Intermittent IV Lasix per nephrology BiPAP and high flow oxygen as needed. Goals of care discussed with patient and . Patient and made aware her prognosis is poor. Pathology reports-metastatic carcinoma-favors gynecological origin. Patient seen and evaluated by Dr. Woo. I was present during the discussion. According to Dr. Woo, intra-abdominal masses and pulmonary metastasis likely related to ovarian cancer. Patient has poor performance status and at the moment not a good candidate for even palliative chemo. General surgery Dr. Larios is following. Patient was started on antibiotics due to worsening leukocytosis. Patient and have declined Pleurx catheter placement, and would like to proceed with hospice at home. Hypertension off pressors since 02/25 ~noon BP stable. Patient has been normotensive Continue to hold antihypertensives. Chronic anemia Daily labs. Monitor H&H. COPD, chronic Hypothyroidism Anxiety Chrohn's disease GERD Hx prior CVA Bronchodilators as needed. Continue other home medications. Acute kidney injury Likely secondary to overdiuresis. Serum creatinine continues to trend up. Nephrology is following. Intermittent IV Lasix per nephrology. Encourage oral hydration. VTE: lovenox Code: Full DNR.
[2024-03-07] MEDS: POLYETHYL GLY 3350 17 GM/DOSE PO SCH (20:18)
--- NOTE | 2024-03-07 23:51 | PN ---
Date of Progress Note: 03/07/2024 Chief Complaint: Acute kidney injury. Subjective: The patient is a 58-year-old woman with history of COPD, hypertension, history of pleura l effusion. She is admitted to ICU. She was moved to ICU when she became hypotensive and required p ressors. The patient also was treated with Lasix drip, although she received thoracentesis, 1.5 L of fluid removed via thoracentesis. The patient was found to have metabolic alkalosis and she was star ankur on Diamox to control electrolytes. Review of Systems: Denies chest pain, palpitation. Physical Examination: Lungs: Clear to auscultation bilaterally. Heart: S1, S2. Abdomen: Soft. Extremities: Slight edema. Impression And Plan: 1.Pleural effusion, is likely malignant. The patient will benefit from thoracentesis. Please refer to radiology imaging and radiologist's recommendation. 2.Respiratory acidosis with mild metabolic alkalosis. The patient was taking Diamox, and Diamox was stopped. Continue BiPAP and oxygen. 3.Peritoneal metastasis. Biopsy was done February 28 and results are pending. 4.History of chronic obstructive pulmonary disease with CO2 retention. Continue BiPAP. 5.Mild hypercalcemia. Corrected calcium was around 12. Plan is to monitor electrolytes. Hold Lasi x. Continue adequate hydration. The patient may be a candidate for bisphosphonate pending PTH and PTH-related protein. EB/MODL Voice ID: [id number] Report ID: [id number]
--- NOTE | 2024-03-08 11:03 | PN ---
Date of Progress Note: 03/08/2024 Subjective: The patient was admitted to the hospital with cardiorenal syndrome. The patient is oliguric. Kidney function continued to decline. Family decided for hospice care. Physical Examination: Vital Signs: Blood pressure 103/57, pulse of 91. Chest: Crackles, bilateral. Heart: S1, S2. Systolic murmur. Abdomen: Soft, nontender. Extremities: +1 edema. Neuro: The patient is confused. Laboratory Data: There is no lab data for today neither yesterday. Current Medications: The patient is on include vancomycin, cefepime, albuterol, hydroxyzine, Zosyn, Lovenox, and Lasix. Assessment And Plan: 1. Acute kidney injury secondary to cardiorenal, oliguric. The patient is going to be hospice. We will sign off. Call us in case change in condition. 2. Hypertension, controlled. Will follow up as by Primary. 3. Peritoneal metastasis, as by patient hospice. 4. 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 The patient is going to be hospice. We will sign off. Time spent examining the patient [id number] reviewing data lab and radiology placing orders or discussing the case with the patient discussing the case with the steam drier operator including hospitalist and nursing staff more than 55-minute STEPHANIA Voice ID: [id number] Report ID: [id number]
[2024-03-08] MEDS ORDERED: IPRATROPIUM BROM 0.5MG/2.5ML NEB PRN (11:06)
--- NOTE | 2024-03-08 11:14 | P.PN ---
Date of Service: 03/08/24 Subjective: ROS: 10 point ROS as noted above, otherwise negative Physical Exam: GEN: Alert, oriented x3 CV: Regular rate and rhythm, trace pedal edema Pulm: nonlabored respirations on 4L NC, diminished bilaterally ABD: soft, nontender, nondistended PICC in place, Hammond in place Problem List: Shock, hypovolemic Hypotension Peritoneal metastatic cancer s/p biopsy (02/24) Malignant Left Pleural effusion s/p thoracentesis (02/24) Acute hypoxic respiratory failure with hypoxia and hypercapnia Metabolic alkalosis Hypertension COPD, chronic Hypothyroidism Anxiety Chrohn's disease GERD Hx prior CVA Patient underwent peritoneal mass biopsy with left thoracentesis with Dr. Larios on 02/24. ~1.5L removed from effusion, ~650mL ascites fluid removed post-operatively, patient was hypoxic and became hypotensive - Didn't meat criteria to extubate CXR (02/24): Mod-Large loculated left pleural effusion with mild-mod pulm edema. Moderate Cardiomegaly off sedation and extubated 02/25 ~noon suspect hypotension secondary to hypovolemia and medication effect - all occurred after anesthesia/procedure. Dr. Montero, pulm is following. Intermittent BiPAP as needed. Elevated bicarb secondary to compensation for CO2 retention or contraction alkalosis. Pathology reports: metastatic carcinoma favoring gynecological origin. Goals of care discussed with patient and . Patient and made aware her prognosis is poor. Patient seen and evaluated by Dr. Woo. According to Dr. Woo, intra- abdominal masses and pulmonary metastasis likely related to ovarian cancer. Patient has poor performance status and at the moment not a good candidate for even palliative chemo. Patient was started on IV vancomycin due to worsening leukocytosis 03/07 Patient and have declined Pleurx catheter placement, and would like to proceed with hospice at home. VTE: lovenox Code: DNR Dispo: home hospice, pending setup Time Spent Managing Pts Care (In Minutes): 45
[2024-03-08 12:25] VITALS: BP 115/73; TEMP 96.5
--- NOTE | 2024-03-09 06:40 | P.DS ---
Admission Date: 02/25/24 Discharge Date: 03/08/24 Disposition: HOSPICE-HOME Discharge Condition: GOOD Reason for Admission: Resp Failure Consultations: Nephrology - Dr. Lance, Dr. Molina-Landon Pulmonology - Dr. Montero General Surgery - Dr. Larios Brief History of Present Illness: 58 yo F, PMH: COPD, hypertension, GERD, large left pleural effusion status post thoracentesis, hypothyroidism, anxiety, Crohn's disease, ascites Patient who underwent Laparoscopic Peritoneal Mass Biopsy and Left Thoracentesis by Dr. Larios and was admitted for further management. Patient was hypoxic and hypotensive postprocedure and did not meet the criteria of extubation and admitted to the ICU. Patient was found to be hypotensive and was started on pressors ,continues to be intubated. Patient is sedated and could not offer any history hence most of the history is obtained from the chart review and talking to the surgeon . Hospital Course: Problem List: Shock, hypovolemic Hypotension Peritoneal metastatic cancer s/p biopsy (02/24) Malignant Left Pleural effusion s/p thoracentesis (02/24) Acute hypoxic respiratory failure with hypoxia and hypercapnia Metabolic alkalosis Hypertension COPD, chronic Hypothyroidism Anxiety Chrohn's disease GERD Hx prior CVA Physician discharge instructions: Patient underwent peritoneal mass biopsy with left thoracentesis with Dr. Larios on 02/24. Post-operatively, patient was hypoxic and became hypotensive, didn't meat criteria to extubate and was admitted to the ICU. Patient successfully extubated and off sedation since 02/25 ~noon. Suspect hypotension secondary to hypovolemia and medication effect - all occurred after anesthesia/procedure. Chest xray noted Mod-Large loculated left pleural effusion with mild-mod pulm edema. CT chest abdomen and pelvis 03/01 with bilateral moderate pleural effusion, large intra-abdominal mass. Pathology report came back metastatic carcinoma favoring gynecological origin. Patient was seen and evaluated by Dr. Woo, oncology who felt intra-abdominal masses and pulmonary metastasis likely related to ovarian cancer. Patient and were offered Pleurx catheter placement, but declined procedure. Given her poor prognosis, worsening quality of life, progressive declination, patient and family opted to proceed with home hospice. Physical Exam: GEN: Alert, oriented x3 CV: Regular rate and rhythm, trace pedal edema Pulm: nonlabored respirations on 4L NC, diminished bilaterally ABD: soft, nontender, nondistended Vital Signs/Physical Exam: Temp Pulse Resp BP Pulse Ox 96.5 F L 92 H 30 H 115/73 95 03/08/24 12:00 03/08/24 12:00 03/08/24 12:00 03/08/24 12:00 03/08/24 12:00 Laboratory Data at Discharge: WBC 20.00 thou/uL (4.3-10.9) H 03/07/24 04:30 Hgb 8.9 g/dL (12.0-15.0) L 03/07/24 04:30 Hct 27.5 % (36.0-45.0) L 03/07/24 04:30 Plt Count 431 thou/uL (152-406) H 03/07/24 04:30 PT 12.1 SECONDS (9.4-12.5) 02/25/24 11:50 INR 1.08 02/25/24 11:50 APTT 29.0 SECONDS (24.3-36.9) 02/25/24 11:50 Sodium 131 mEq/L (136-145) L 03/07/24 04:30 Potassium 3.7 mEq/L (3.5-5.1) 03/07/24 04:30 BUN 43 mg/dL (7-18) H 03/07/24 04:30 Creatinine 1.87 mg/dL (0.55-1.02) H 03/07/24 04:30 Glucose 117 mg/dL (74-106) H 03/07/24 04:30 Phosphorus Cancelled 03/07/24 07:00 Magnesium 2.1 mg/dL (1.6-2.4) 03/07/24 04:30 Total Bilirubin 0.5 mg/dL (0.2-1.0) 02/27/24 05:15 AST 38 U/L (15-37) H 02/27/24 05:15 ALT < 14 U/L (13-56) 02/27/24 05:15 Alkaline Phosphatase 228 U/L (45-117) H 02/27/24 05:15 Home Medications: Aspirin [Aspirin EC 325 MG] 1 tab PO DAILY 11/25/23 Atorvastatin Calcium [Lipitor] 1 tab PO BEDTIME 11/25/23 Krill/Kamas-3/Dha/Epa/Lipids [Kamas-3 Krill Oil 500 mg Sfgl] 1 cap PO DAILY 11/25/23 Levothyroxine [Synthroid*] 1 tab PO DAILY 11/25/23 Omeprazole [Prilosec] 1 cap PO [id number] 11/25/23 Acetaminophen with Codeine [Acetaminophen-Cod #3 Tablet] 1 tab PO PRN PRN 12/31/23 Cholecalciferol (Vitamin D3) [Vitamin D3] 50 mcg PO DAILY 12/31/23 Duloxetine HCl 60 mg PO DAILY 12/31/23 Fluticasone/Umeclidin/Vilanter [Trelegy Ellipta 200-62.5-25] 1 puff NEB DAILY 12/31/23 Gabapentin 600 mg PO BID PRN 12/31/23 hydrOXYzine HCL [Atarax*] 25 mg PO PRN PRN 12/31/23 Physician Discharge Instructions: Physician discharge instructions: Patient underwent peritoneal mass biopsy with left thoracentesis with Dr. Larios on 02/24. Post-operatively, patient was hypoxic and became hypotensive, didn't meat criteria to extubate and was admitted to the ICU. Patient successfully extubated and off sedation since 02/25 ~noon. Suspect hypotension secondary to hypovolemia and medication effect - all occurred after anesthesia/procedure. Chest xray noted Mod-Large loculated left pleural effusion with mild-mod pulm edema. CT chest abdomen and pelvis 03/01 with bilateral moderate pleural effusion, large intra-abdominal mass. Pathology report came back metastatic carcinoma favoring gynecological origin. Patient was seen and evaluated by Dr. Woo, oncology who felt intra-abdominal masses and pulmonary metastasis likely related to ovarian cancer. Patient and were offered Pleurx catheter placement, but declined procedure. Given her poor prognosis, worsening quality of life, progressive decl ination, patient and family opted to proceed with home hospice. PROBLEM: (list out Acute Problems for the Current visit) GOAL: Clear understanding of disease process INSTRUCTIONS: Diet: Regular Activity: No lifting more than 10 lbs DME DME: Date Ordered: Name of Company: [employer] Services Needed: Hospice Name of Company: Date or Referral: IMMUNIZATION Influenza Vaccine Indicated: Influenza Vaccine Given: Date Given: Pneumonia Vaccine Indicated: Pneumonia Vaccine Given: Date Given: Diet: Regular Activity: No lifting more than 10 lbs Followup: Baldev Larios MD [ACTIVE - CAN ADMIT] - Saud Correia FNP [Primary Care Provider] - Time spent managing pt's care (in minutes): 45
[2024-03-10 16:28] LABS: 1,25 Dihydroxy Vitamin D3 23 pg/mL; Vitamin D 1,25-Dihydroxy Total 23 pg/mL (18-72); Vitamin D,1,25-OH2, D2 <8 pg/mL
== END 2024-03-08 14:00 | disposition hospice, home (50) | DRG 356 ==
LOC: OR 11:03 → 3RD-ICU 18:37
PROVIDERS: ADMIT Family Medicine; ATTEND Hospitalist
PROC: 0W9B30Z Drainage of Left Pleural Cavity with Drainage Device, Percutaneous Approach (ICD-10-PCS; 2024-02-25)
PROC: 4A033R1 Measurement of Arterial Saturation, Peripheral, Percutaneous Approach (ICD-10-PCS; 2024-02-25)
PROC: 5A1935Z Respiratory Ventilation, Less than 24 Consecutive Hours (ICD-10-PCS; 2024-02-25)
PROC: 0BH17EZ Insertion of Endotracheal Airway into Trachea, Via Natural or Artificial Opening (ICD-10-PCS; 2024-02-25)
PROC: 0W9G4ZX Drainage of Peritoneal Cavity, Percutaneous Endoscopic Approach, Diagnostic (ICD-10-PCS; principal; 2024-02-25 14:00)
PROC: 5A09557 Assistance with Respiratory Ventilation, Greater than 96 Consecutive Hours, Continuous Positive Airway Pressure (ICD-10-PCS; 2024-02-27)
PROC: 02HV33Z Insertion of Infusion Device into Superior Vena Cava, Percutaneous Approach (ICD-10-PCS; 2024-02-27)
PROC: 5A0945A Assistance with Respiratory Ventilation, 24-96 Consecutive Hours, High Flow/Velocity Cannula (ICD-10-PCS; 2024-02-27)
DX: C78.6 Secondary malignant neoplasm of retroperitoneum and peritoneum (principal); J96.01 Acute respiratory failure with hypoxia; R57.1 Hypovolemic shock; J96.02 Acute respiratory failure with hypercapnia; J91.0 Malignant pleural effusion; K50.90 Crohn's disease, unspecified, without complications; R18.8 Other ascites; E87.3 Alkalosis; N17.9 Acute kidney failure, unspecified; E87.1 Hypo-osmolality and hyponatremia; C56.9 Malignant neoplasm of unspecified ovary; I95.2 Hypotension due to drugs; T41.45XA Adverse effect of unspecified anesthetic, initial encounter; I10 Essential (primary) hypertension; D50.9 Iron deficiency anemia, unspecified; E03.9 Hypothyroidism, unspecified; E83.52 Hypercalcemia; E86.0 Dehydration; K21.9 Gastro-esophageal reflux disease without esophagitis; D63.8 Anemia in other chronic diseases classified elsewhere; J44.9 Chronic obstructive pulmonary disease, unspecified; Z66 Do not resuscitate; Z78.1 Physical restraint status; Z88.8 Allergy status to other drugs, medicaments and biological substances; Z98.51 Tubal ligation status; Z79.82 Long term (current) use of aspirin; Z99.81 Dependence on supplemental oxygen; Z86.73 Personal history of transient ischemic attack (TIA), and cerebral infarction without residual deficits; Z79.899 Other long term (current) drug therapy; Z91.048 Other nonmedicinal substance allergy status
CPT/HCPCS: 36415; 36569; 36600; 71045; 71046; 71250; 74176; 80048; 80053; 81001; 82306; 82652; 82805; 83519; 83605; 83735; 83970; 84100; 84132; 84443; 85025; 85610; 85730; 86850; 86900; 86901; 87086; 87088; 88304; 88305; 93306; 94002; 94003; 94010; 94640; 94660; 97110; 97161; 97164; 97530; J0692; J0696; J1120; J1650; J1940; J2003; J2371; J2405; J2704; J3010; J3475; J3480; J7030; J7040; J7050; J7120; J7605; J7613; J7644; P9047